=== PATIENT | male | born 1950 | race Caucasian/White ===

== ENCOUNTER → 2016-11-25 | Outpatient (CLI) | payer OTHER ==
[~2016-11-25] MED LIST: ALBUAER2; ASPI325T45 PO; ATOR-22 PO; CARV25TA2 PO; CLOB-65 EXT; CLR10; CRG3125 PO; GABA-113 PO; GLC/500 PO; GLC500; GLCSR10; INSU70IN2 SC; LISI-461 PO; NVLG SQ; PRAV20TA PO; VNTHFA/IN INH
--- NOTE | 2016-11-25 14:04 | DIAGNOSTIC IMAGING REPORT ---
L-SPINE MIN 4 VIEWS ROUTINE CLINICAL HISTORY: Low back pain COMPARISON STUDY: No previous studies for comparison. FINDINGS: There are surgical clips within the right upper quadrant consistent with a prior cholecystectomy. There is a mild amount stool in the right colon. There are no acute fractures are subluxations. There are mild to moderate multilevel degenerative changes. No destructive lesions are visualized. IMPRESSION: Mild to moderate degenerative change. No fractures, subluxations, or destructive lesions are visualized. Electronically signed by: Haresh Knox M.D. 11/25/2016 2:03 PM Dictated Date/Time: 11/25/2016 2:02 PM
== END | disposition home or self-care (01) ==
LOC: C.RADPV 13:34
PROVIDERS: ATTEND Family Medicine
DX: R30.0 Dysuria (principal); M47.816 Spondylosis without myelopathy or radiculopathy, lumbar region

== ENCOUNTER → 2017-03-06 | Outpatient (CLI) | payer OTHER ==
[2017-03-06 12:44] LABS: ESTIMATED AVERAGE GLUCOSE 163 mg/dl; HA1C FLAG Normal (Normal)
[2017-03-06 12:55] LABS: BLOOD UREA NITROGEN 16 mg/dl (7-18); BUN/CREATININE RATIO 18.2 (10-20); CALCIUM 8.9 mg/dl (8.5-10.1); CARBON DIOXIDE 25 mmol/L (21-32); CHLORIDE 107 mmol/L (98-107); CHOLESTEROL 91 mg/dl (0-200); CHOLESTEROL/HDL RATIO 2.7; CREATININE 0.86 mg/dl (0.60-1.40); GLUCOSE 158 mg/dl (70-99); HDL CHOLESTEROL 34 mg/dl; LDL CHOLESTEROL CALCULATED 41 mg/dl; POTASSIUM 4.4 mmol/L (3.5-5.1); SODIUM 140 mmol/L (136-145); TRIGLYCERIDES 78 mg/dl (0-150); VERY LOW DENSITY LIPOPROT CALC 16 mg/dl
== END | disposition home or self-care (01) ==
LOC: C.LABPVFM 08:56
PROVIDERS: ATTEND Nurse Practitioner
DX: E11.65 Type 2 diabetes mellitus with hyperglycemia (principal); I10 Essential (primary) hypertension; E78.00 Pure hypercholesterolemia, unspecified

== ENCOUNTER 2017-04-09 11:58 | Emergency (ER) | payer OTHER ==
[~2017-04-09] VITALS: Ht 185.4 cm; Wt 119.4 kg
[~2017-04-09 11:58] MED LIST changes: -ASPI325T45 PO; -ATOR-22 PO; -CARV25TA2 PO; -GABA-113 PO; -GLC/500 PO; -INSU70IN2 SC; -NVLG SQ; -VNTHFA/IN INH
[2017-04-09 12:11] VITALS: TEMP 37; Ht 185.4 cm; Wt 119.4 kg
[2017-04-09] MEDS ORDERED: NVLG SQ (12:40)
[2017-04-09] MEDS ORDERED: ATOR-22 PO (12:40)
[2017-04-09] MEDS ORDERED: ASPI325T45 PO (12:40)
[2017-04-09] MEDS ORDERED: LISI-461 PO (12:40)
[2017-04-09] MEDS ORDERED: INSU70IN2 SC (12:40)
[2017-04-09] MEDS ORDERED: LIDOCAINE/EPINEPHRINE 1% 20 ML VIAL INFIL ONE (13:00)
--- NOTE | 2017-04-09 13:28 | DIAGNOSTIC IMAGING REPORT ---
HEAD WITHOUT CONTRAST (CT) CT DOSE: HISTORY: Trauma fall, head/neck injury TECHNIQUE: Multiaxial CT images of the head were performed without the use of intravenous contrast. A dose lowering technique was utilized adhering to the principles of ALARA. Comparison: None. Findings: The paranasal sinuses and mastoid air cells are clear. The calvarium and skull base are intact. The ventricles and sulci are within normal limits. There is no mass, hematoma, midline shift, or acute infarct. Mild extracranial right prefrontal soft tissue edema. Impression: No acute intracranial abnormality. Mild right prefrontal extracranial soft tissue edema The above report was generated using voice recognition software. It may contain grammatical, syntax or spelling errors. Electronically signed by: Sylvain Spence M.D. 04/09/2017 1:27 PM Dictated Date/Time: 04/09/2017 1:25 PM
--- NOTE | 2017-04-09 13:35 | DIAGNOSTIC IMAGING REPORT ---
CERVICAL SPINE CT CT DOSE: 1266.48 mGy.cm HISTORY: fall, head/neck injury TECHNIQUE: Multiaxial CT images of the cervical spine were performed and reformatted in the sagittal and coronal plane without the use of contrast. A dose lowering technique was utilized adhering to the principles of ALARA. COMPARISON: None. FINDINGS: No fractures. No subluxation. Prevertebral soft tissues and the C1-C2 interval are intact. No pneumothorax. Mild to moderate disc space narrowing at C5-C6 and C6-C7 with small endplate osteophytes. Left-sided pacemaker wires are noted. IMPRESSION: No fractures within the cervical spine. [id number] degenerative changes. Electronically signed by: Dereck Schafer M.D. 04/09/2017 1:34 PM Dictated Date/Time: 04/09/2017 1:28 PM
[2017-04-09] MEDS ORDERED: VNTHFA/IN INH (13:48)
[2017-04-09] MEDS ORDERED: CARV25TA2 PO (13:49)
[2017-04-09] MEDS ORDERED: GLC/500 PO (13:50)
[2017-04-09] MEDS ORDERED: DIPHTHERIA/TETANUS/PERTUSSIS 0.5 ML SYR/VIAL IM. ONE (14:00)
--- NOTE | 2017-04-09 14:40 | DIAGNOSTIC IMAGING REPORT ---
RIGHT SHOULDER MIN 2 VIEWS ROUTINE CLINICAL HISTORY: right shoulder pain, injury Right trauma. Pain. COMPARISON: None. Discussion: Deformity of the right acromion. Margins are sclerotic, however, with this possibly chronic although not identified on this study 2008. Moderate degenerative changes of the glenohumeral joint. IMPRESSION: Deformity of the acromion felt to be secondary to old trauma. Moderate degenerative change. No acute process. The above report was generated using voice recognition software. It may contain grammatical, syntax or spelling errors. Electronically signed by: Sylvain Spence M.D. 04/09/2017 2:38 PM Dictated Date/Time: 04/09/2017 2:34 PM
--- NOTE | 2017-04-09 14:42 | DIAGNOSTIC IMAGING REPORT ---
PA CHEST WITH RIGHT-SIDED RIB SERIES CLINICAL HISTORY: Fall with right-sided chest wall pain. FINDINGS: A PA chest radiograph with 6 additional views may right-sided rib series is compared to study dated 10/29/2008. A 3-lead cardiac pacemaker partially obscures the left mid chest. The patient is status post midline sternotomy. The heart is enlarged and there is atherosclerotic calcification of the thoracic aorta. The pulmonary vasculature is noncongested. The lungs and pleural spaces are clear. No pneumothorax is seen. The skeletal structures are osteopenic. A nondistracted right anterior seventh rib fracture is suspected. No additional right-sided rib fractures are clearly seen on the rib series. The remainder of the bony thorax is grossly intact. Cholecystectomy clips are seen in the right upper quadrant. IMPRESSION: 1. Cardiomegaly and cardiac pacemaker. There is no radiographic evidence of congestive failure. 2. No airspace consolidation, pleural effusion, or pneumothorax is seen. 3. Suspect a nondistracted right anterior 7th rib fracture. Correlate for point tenderness at this site. Electronically signed by: Brendan Foy M.D. 04/09/2017 2:41 PM Dictated Date/Time: 04/09/2017 2:35 PM
[2017-04-09 14:47] VITALS: BP 145/60
--- NOTE | 2017-04-09 15:26 | EMERGENCY ROOM VISIT NOTE ---
History First contact with patient: 12:27 Chief Complaint: HEAD INJURY (MINOR) Stated Complaint: HEAD INJURY-WORK RELATED INJURY History of Present Illness The patient is a 66 year old male who presents to the Emergency Room with complaints of a fall which occurred at work prior to arrival. The patient states that he tripped over an air hose coming down a ladder, falling down approximately 5 steps. He states that he landed onto his head. He reports pain in his head and neck. He has a laceration to the right eyebrow. He also reports mild pain in the right shoulder and ribs. He states that he suffered some injuries to the knees, but there is minimal pain and he is able to walk without difficulty. He rates his overall discomfort a 7/10. He does not believe he lost consciousness, but states that he "saw stars." He denies any nausea, vomiting, blurred vision, slurred speech, numbness or weakness. He takes aspirin daily but no other blood thinners. He denies any abdominal or chest pain. Review of Systems A complete 10 point review of systems was reviewed with the patient with pertinent positives and negatives as per history of present illness. All else were negative. Social History Smoking Status: Never Smoker Current/Historical Medications Scheduled Aspirin (Aspirin), 975 MG PO BID Atorvastatin (Lipitor), 20 MG PO DAILY Carvedilol (Coreg), 25 MG PO BID Insulin Isophan/Regular (Novolin 70/30), 1 DOSE SC AMPM Lisinopril (Zestril), 10 MG PO DAILY Metformin Hcl (Glucophage), 500 MG PO BID Scheduled PRN Albuterol Hfa (Ventolin Hfa), 1-2 PUFFS INH Q4H PRN for SOB/Wheezing Insulin Aspart (Novolog), 1 DOSE SQ UD PRN for SLIDING SCALE Physical Exam Vital Signs Date Time Temp Pulse Resp B/P (MAP) Pulse Ox O2 Delivery O2 Flow Rate FiO2 04/09/17 15:33 74 18 96 04/09/17 14:47 75 16 145/60 97 Room Air 04/09/17 12:16 18 95 04/09/17 12:11 37.0 71 18 142/72 95 Room Air Physical Exam VITALS: Vitals are noted on the nurse's note and reviewed by myself. Vital signs stable. GENERAL: This is a 66-year-old male, in no acute distress, nondiaphoretic, well- developed well-nourished. SKIN: There is a 2 cm laceration to the right brow with no active bleeding. This gapes with traction. No foreign bodies seen in the base of the wound. There is a 2.5 cm laceration to the anterior aspect of the right knee. This gapes apart with traction. No foreign bodies, blood vessels or bone seen in the base of the wound. No active bleeding. HEAD: There is ecchymosis and hematoma to the right forehead. Otherwise, normocephalic atraumatic. EARS: External auditory canals clear, tympanic membranes pearly disla without erythema or effusion bilaterally. No hemotympanum. EYES: Pupils equal round and reactive to light and accommodation. Conjunctivae without injection, sclerae without icterus. Extraocular movements intact. NOSE: No deformity, no bleeding from the naris. MOUTH: Mucous membranes moist. No loose or chipped teeth. NECK: Supple without nuchal rigidity. There is mild tenderness to palpation over the posterior cervical spine. HEART: Regular rate and rhythm without murmurs gallops or rubs. LUNGS: Clear to auscultation bilaterally without wheezes, rales or rhonchi. MUSCULOSKELETAL: There are mild tenderness to palpation of the anterior right shoulder. There is tenderness to palpation of the right lateral ribs. NEURO: Patient was alert and oriented to person place and time. Normal sensation to light and sharp touch. Deep tendon reflexes 2+ throughout. No focal neurological deficits. Medical Decision & Procedures ER Provider Diagnostic Interpretation: HEAD WITHOUT CONTRAST (CT) Impression: No acute intracranial abnormality. Mild right prefrontal extracranial soft tissue edema CERVICAL SPINE CT IMPRESSION: No fractures within the cervical spine. [id number] degenerative changes. RIGHT SHOULDER MIN 2 VIEWS ROUTINE IMPRESSION: Deformity of the acromion felt to be secondary to old trauma. Moderate degenerative change. No acute process. PA CHEST WITH RIGHT-SIDED RIB SERIES IMPRESSION: 1. Cardiomegaly and cardiac pacemaker. There is no radiographic evidence of congestive failure. 2. No airspace consolidation, pleural effusion, or pneumothorax is seen. 3. Suspect a nondistracted right anterior 7th rib fracture. Correlate for point tenderness at this site. Medications Administered Medications (Trade) Dose Ordered Sig/Gaby Route Start Time Stop Time Status Last Admin Dose Admin Diphtheria/ Pertussis/Tetanus Vacc (Adacel Inj) 0.5 ml ONCE ONCE IM. 04/09/17 14:00 04/09/17 14:01 DC 04/09/17 14:07 0.5 ML Procedure Verbal consent was obtained to perform the procedures. FACE LACERATION: Using sterile technique the wound was cleaned with Betadine. The area was sterilely draped. 3 ml of 1% buffered lidocaine with epinephrine was used to anesthetize the right eyebrow laceration. Once the patient was anesthetized, the wound was copiously irrigated under pressure with sterile saline. The wound was explored. The laceration was repaired using 4 simple interrupted 6-0 nylon sutures with the wound edges being well approximated. The patient tolerated the procedure well. Hemostasis was achieved. The area was cleaned with sterile saline and dressed with bacitracin ointment and bandage. KNEE LACERATION: Using sterile technique the wound was cleaned with Betadine. The area was sterilely draped. 5 ml of 1% buffered lidocaine with epinephrine was used to anesthetize the knee laceration. Once the patient was anesthetized , the wound was copiously irrigated under pressure with sterile saline. The wound was explored and there were no deep structures injured such as tendons, bone, or significant blood vessels. The laceration was repaired using for simple interrupted 4-0 nylon sutures with the wound edges being well approximated. The patient tolerated the procedure well. Hemostasis was achieved. The area was cleaned with sterile saline and dressed with bacitracin ointment and bandage. Medical Decision Differential diagnosis includes fracture, contusion, sprain, dislocation, among others. The patient was evaluated as above. Multiple imaging studies were obtained and read by radiology as above. The patient did have a possible right rib fracture and was given an incentive spirometer. Conservative measures were discussed. Imaging was otherwise negative. Laceration repair was performed as noted in the procedure section. Suture care instructions were discussed with the patient. He was instructed to follow-up with his primary care provider for further evaluation. He will be off work until all of the sutures are removed. The patient verbalized understanding of my assessment and treatment plan and was discharged home in good condition. The patient was independently evaluated by Dr. Tesfaye, ED attending physician, who agreed with my assessment and treatment plan. Head Trauma GCS Score: 15 Medication Reconcilliation Current Medication List: was personally reviewed by me Blood Pressure Screening Patient's blood pressure: Elevated blood pressure Blood pressure disposition: Elevated BP felt to be situational Impression Primary Impression: Closed head injury Additional Impressions: Right rib fracture Facial laceration Laceration of right knee Departure Information Dispostion Home / Self-Care Condition GOOD Referrals Zara Rodriguez C.R.N.P (PCP) Patient Instructions My [facility] Additional Instructions For pain control, you can use the following unnc-hac-cixthua medicines (if >12 yo): - Regular strength (325mg/tab) Tylenol (acetaminophen) 2 tabs every 4-6 hours as needed. Do not exceed 12 tablets in a 24 hour period. Avoid taking more than 4 grams (4000 mg) of Tylenol per day. This includes any other sources of acetaminophen you may take on a regular basis. - Regular strength (200 mg/tab) Advil (ibuprofen) 1-2 tabs every 4-6 hours as needed. Do not exceed a dose of 3200 mg per day. Use the incentive spirometer several times daily to ensure that you are taking full, deep breaths. You have received 4 sutures on your right eyebrow and 4 sutures on your right knee. These sutures are NOT dissolvable. The facial sutures will need to be removed in 6-7 days and the sutures of the knee will need to be removed in 12- 14 days. You can return to the Emergency Department or contact your Primary Care Provider to have the sutures removed. Proper wound care is essential for adequate wound healing and infection prevention. You can shower and clean the wound with soap and water. Do not scour over the wound, pat dry with a towel. Do not submerse the wound (i.e. bathe or dish wash) until the sutures have been removed. You can use an antibiotic ointment with a dressing over the wound for the next 3-4 days. After this time you may leave the wound dry and open to the air. If crust develops over the wound you can use a Q-tip to apply a 1:1 peroxide:water solution to clean the wound. Look for signs of infection of the wound including: increased pain, swelling, foul discharge, streaking, or increased temperature. If any of these are noticed you should return to the Emergency Department for further assessment and treatment. As with any laceration you may have received nerve damage to the surrounding tissues. This damage may or may not be permanent. You should keep the area covered with sunscreen for the first 6 months to 1 year when at risk for exposure to help minimize scarring. You can also use scar reducing creams or Vitamin E oil to help minimize scarring. Return to the emergency department if your symptoms worsen despite treatment course outlined above. Problem Qualifiers Primary Impression: Closed head injury Encounter type: initial encounter Qualified Codes: S09.90XA - Unspecified injury of head, initial encounter
[2017-04-09 15:33] VITALS: PULSE 74; O2SAT 96
--- NOTE | 2017-04-09 19:44 | EMERGENCY ROOM VISIT NOTE ---
ED Visit Note First contact with patient: 12:27 A/P: Fall with +HS. CT head negative. eye brown and knee lac - repair by PA. ND rib fx - IS. I reviewed the patient's past medical history, medications, and visit nursing notes. I discussed the case with the physician boilermaker's assistant and agree with the findings and plan as documented in the physician assistants note.
[2017-06-01] MEDS ORDERED: GABA-113 PO (11:15)
== END 2017-04-09 15:34 | disposition home or self-care (01) ==
LOC: C.EDD 13:15
DX: S01.81XA Laceration without foreign body of other part of head, initial encounter (principal); S81.011A Laceration without foreign body, right knee, initial encounter; S22.31XA Fracture of one rib, right side, initial encounter for closed fracture; W11.XXXA Fall on and from ladder, initial encounter; Y92.89 Other specified places as the place of occurrence of the external cause; Y99.0 Civilian activity done for income or pay; Z79.82 Long term (current) use of aspirin; Z79.899 Other long term (current) drug therapy; Z79.4 Long term (current) use of insulin

== ENCOUNTER → 2017-04-14 | Outpatient (CLI) | payer OTHER ==
[~2017-04-14] MED LIST changes: -ALBUAER2; +ASPI325T45 PO; +ATOR-22 PO; +CARV25TA2 PO; -CLOB-65 EXT; -CLR10; -CRG3125 PO; +GABA-113 PO; +GLC/500 PO; -GLC500; -GLCSR10; +INSU70IN2 SC; +NVLG SQ; -PRAV20TA PO; +VNTHFA/IN INH
--- NOTE | 2017-04-14 11:37 | DIAGNOSTIC IMAGING REPORT ---
L-SPINE MIN 4 VIEWS ROUTINE CLINICAL HISTORY: 66 years-old Male presenting with fall down flight of stairs, right leg pain, back pain. TECHNIQUE: Frontal, bilateral oblique, lateral views of the lumbar spine and coned in lateral view of the lumbosacral junction were obtained. COMPARISON: 11/25/2016. FINDINGS: Radiograph mildly degraded due to suboptimal positioning of lateral and oblique views.Normal lumbar lordosis. Vertebral body heights and intervertebral disc spaces essentially preserved. Mild multilevel degenerative changes. No significant osseous neural foraminal narrowing. No radiographic evidence of acute fracture or subluxation allowing for suboptimal positioning. Moderate stool burden in the right colon. Nonobstructive bowel gas pattern. No gross pneumoperitoneum. Surgical clip projects over the pelvis. Cholecystectomy clips noted. Atherosclerosis. IMPRESSION: No radiographic evidence of acute osseous injury. Mild multilevel degenerative changes without evidence of osseous neural foraminal narrowing. Electronically signed by: Agustín Wilkins M.D. 04/14/2017 11:35 AM Dictated Date/Time: 04/14/2017 11:33 AM
--- NOTE | 2017-04-14 11:38 | DIAGNOSTIC IMAGING REPORT ---
RIGHT KNEE 1 OR 2 VIEWS ROUTINE, RIGHT TIBIA/FIBULA 2 VIEWS ROUTINE HISTORY: 66 years-old Male RIGHT KNEE AND RIGHT TIB/FIB PAIN BACK PAIN Right COMPARISON: None available TECHNIQUE: 2 views of the right knee and 2 views of the right tibia and fibula. FINDINGS: Knee: Mild tricompartmental osteoarthritis is noted, most pronounced within the patellofemoral joint. There is spurring of the superior pole patella. Small joint effusion is noted. No loose body, acute fracture or dislocation. Tibia/fibula: 8 mm pretibial nonspecific soft tissue calcification is noted. There is mild pretibial soft tissue swelling noted along the proximal tibial shaft. There is no acute fracture or dislocation. There is mild marginal spurring about the medial and lateral malleoli. IMPRESSION: 1. No acute fracture or dislocation of the right knee, tibia or fibula. 2. Small knee joint effusion present with associated patellofemoral osteoarthritis. 3. Mild pretibial soft tissue swelling. The above report was generated using voice recognition software. It may contain grammatical, syntax or spelling errors. Electronically signed by: Chele Gaitan M.D. 04/14/2017 11:36 AM Dictated Date/Time: 04/14/2017 11:34 AM
--- NOTE | 2017-04-14 11:40 | DIAGNOSTIC IMAGING REPORT ---
RIGHT HIP 2 VIEWS CLINICAL HISTORY: Fall with right leg pain. FINDINGS: AP and frog-leg views of the right hip are obtained. No prior studies are available for comparison at the time of dictation. Skeletal structures are well mineralized. No fracture is seen in the right hip or the visualized hemipelvis. The joint space of the hip is maintained. Enthesophytes arise from the greater trochanter of the right femur. Mild sclerotic change is noted in the right sacroiliac joint. The overlying soft tissues are within normal limits. Phleboliths are seen in the pelvis. IMPRESSION: No acute bony abnormality is seen in the right hip. Electronically signed by: Brendan oFy M.D. 04/14/2017 11:39 AM Dictated Date/Time: 04/14/2017 11:37 AM
== END | disposition home or self-care (01) ==
LOC: C.RAD1850 10:49
PROVIDERS: ATTEND Nurse Practitioner Family
DX: T14.90 Injury, unspecified (principal); W19.XXXA Unspecified fall, initial encounter; Y99.0 Civilian activity done for income or pay; M25.461 Effusion, right knee; M17.11 Unilateral primary osteoarthritis, right knee

== ENCOUNTER → 2017-04-15 | Outpatient (CLI) | payer OTHER ==
--- NOTE | 2017-04-15 11:42 | DIAGNOSTIC IMAGING REPORT ---
LUMBAR SPINE WITHOUT CLINICAL HISTORY: 66 years-old Male presenting with PAIN FROM WORK RELATED FALL. TECHNIQUE: Multidetector CT of the lumbar spine was performed without the use of intravenous contrast. IV contrast: None. A dose lowering technique was used consistent with the principles of ALARA (as low as reasonably achievable). COMPARISON: None. CT DOSE (mGy.cm): The estimated cumulative dose is 2369.64 mGy.cm. 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 Cholecystectomy clips. Normal lumbar lordosis. Vertebral bodies maintain normal height and alignment. Minimal intervertebral disc height loss at L5-S1. Vacuum disc phenomenon noted at multiple levels. Multilevel degenerative changes seen to varying degrees at all the lumbar levels further detailed below: L1-2: Anterior osteophytosis and minimal disc bulge. No significant neural foraminal or spinal canal narrowing. L2-3: Disc bulge results in mild bilateral neural foraminal narrowing. L3-4: Disc bulge and facet arthropathy result in moderate bilateral neural foraminal narrowing. There is also effacement of the ventral thecal sac. L4-5: Disc bulge and facet arthropathy result in moderate to severe right and mild left neural foraminal narrowing. Effacement of the ventral thecal sac greater along the right aspect. L5-S1: Disc bulge and right facet arthropathy result in severe right and moderate left neural foraminal narrowing. Paraspinal soft tissues remarkable for atherosclerosis of the normal caliber abdominal aorta. IMPRESSION: Multilevel degenerative changes most severe at L4-5 and L5-S1 with varying degrees of neural foraminal narrowing as above. Multilevel spinal canal narrowing, which could be better characterized by CT myelogram. Electronically signed by: Agustín Wilkins M.D. 04/15/2017 11:41 AM Dictated Date/Time: 04/15/2017 11:35 AM
--- NOTE | 2017-04-15 11:50 | DIAGNOSTIC IMAGING REPORT ---
RIGHT SHOULDER CT CT DOSE: HISTORY: Right shoulder pain PAIN FROM WORK RELATED FALL Right TECHNIQUE: Multiaxial CT images of the right shoulder were performed and reformatted in the sagittal and coronal plane without the use of contrast. A dose lowering technique was utilized adhering to the principles of ALARA. COMPARISON: Right shoulder 04/09/2017. FINDINGS: No acute fracture or dislocation within the right shoulder. 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 This corresponds to the abnormality seen on the prior radiograph. The right clavicle is intact. Mild to moderate degenerative changes within the acromioclavicular and glenohumeral joints. Pacemaker wires are noted. Probable rotator cuff injury/tear given the mild superior subluxation of the humeral head resulting in narrowing of the subacromial space. There is also focal thickening and fluid surrounding the long head of the biceps tendon at the level of the humeral neck. This could represent an age-indeterminate tear or tendinopathy/tenosynovitis. IMPRESSION: 1. No acute fracture or dislocation within the right shoulder. 2. 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 This corresponds to the abnormality seen on the prior radiograph. 3. Mild to moderate osteoarthritis within the right shoulder. 4. Chronic rotator cuff injury. 5. Thickening and fluid surrounding the long head of the biceps tendon at the level of the humeral neck. This could represent an age-indeterminate tear or tendinopathy/tenosynovitis. Electronically signed by: Dereck Schafer M.D. 04/15/2017 11:48 AM Dictated Date/Time: 04/15/2017 11:33 AM
== END | disposition home or self-care (01) ==
LOC: C.CTS 11:02
PROVIDERS: ATTEND Nurse Practitioner Family
DX: M25.511 Pain in right shoulder (principal); M54.5 Low back pain; W19.XXXA Unspecified fall, initial encounter; Y99.0 Civilian activity done for income or pay; M51.36 Other intervertebral disc degeneration, lumbar region; M51.37 Other intervertebral disc degeneration, lumbosacral region; M48.06 Spinal stenosis, lumbar region; M94.8X1 Other specified disorders of cartilage, shoulder; M19.011 Primary osteoarthritis, right shoulder; S46.001A Unspecified injury of muscle(s) and tendon(s) of the rotator cuff of right shoulder, initial encounter; R93.7 Abnormal findings on diagnostic imaging of other parts of musculoskeletal system

== ENCOUNTER → 2017-05-21 | Outpatient (CLI) | payer OTHER | END | disposition home or self-care (01) | LOC: C.LABPVFM 17:49 | PROVIDERS: ATTEND Nurse Practitioner Family | DX: S90.859A Superficial foreign body, unspecified foot, initial encounter (principal); X58.XXXA Exposure to other specified factors, initial encounter ==

== ENCOUNTER → 2017-08-07 | Outpatient (CLI) | payer OTHER ==
[~2017-08-07] VITALS: Ht 185.4 cm; Wt 126.1 kg
[~2017-08-07] MED LIST changes: +ASPCH81X PO; +CINN500C13 PO; +CLRD/12 PO; +HYDR-4383 PO; +MULT-884 PO; -NVLG SQ; +NVLGI/PEN SQ
[2017-08-07 10:11] VITALS: Ht 185.4 cm; Wt 126.1 kg
--- NOTE | 2017-08-07 11:01 | PAT Medication Instructions ---
Service Date Aug 07, 2017. Current Home Medication List Albuterol Hfa (Ventolin Hfa), 1-2 PUFFS INH Q4H PRN for SOB/Wheezing Aspirin (Aspirin), 650 MG PO BID Atorvastatin (Lipitor), 20 MG PO QPM Carvedilol (Coreg), 25 MG PO BID Cinnamon (Cinnamon Extract), 1 TAB PO QAM Desloratadine/Pseudoephedrine (Clarinex-D 12 Hour), 1 TAB PO QPM Gabapentin (Neurontin), 300 MG PO TID Insulin Aspart (Novolog Flexpen), 1 SYR SQ TIDM Insulin Isophan/Regular (Novolin 70/30), 1 DOSE SC AMPM Lisinopril (Zestril), 10 MG PO QAM Metformin Hcl (Glucophage), 500 MG PO BID Multiple Vitamin (Multi Vitamin Daily), 1 TAB PO QAM Medication Instructions For Your Scheduled Surgery - Contact your prescriber and your surgeon for instructions: Aspirin (Aspirin), 650 MG PO BID Hold the following medications 2 weeks prior to surgery: Cinnamon (Cinnamon Extract), 1 TAB PO QAM - Hold the following medications 48 hours prior to surgery: Metformin Hcl (Glucophage), 500 MG PO BID - Hold the following medications the morning of surgery: Lisinopril (Zestril), 10 MG PO QAM Multiple Vitamin (Multi Vitamin Daily), 1 TAB PO QAM Insulin Aspart (Novolog Flexpen), 1 SYR SQ TIDM - Take the following medications the morning of surgery with a sip of water: Albuterol Hfa (Ventolin Hfa), 1-2 PUFFS INH Q4H PRN for SOB/Wheezing (if needed) Gabapentin (Neurontin), 300 MG PO TID Carvedilol (Coreg), 25 MG PO BID - Take the following medications as scheduled the night before surgery: Albuterol Hfa (Ventolin Hfa), 1-2 PUFFS INH Q4H PRN for SOB/Wheezing (if needed) Gabapentin (Neurontin), 300 MG PO TID Atorvastatin (Lipitor), 20 MG PO QPM Carvedilol (Coreg), 25 MG PO BID Desloratadine/Pseudoephedrine (Clarinex-D 12 Hour), 1 TAB PO QPM Insulin Aspart (Novolog Flexpen), 1 SYR SQ TIDM Insulin Isophan/Regular (Novolin 70/30), 1 DOSE SC AMPM - For Insulin Dependent Diabetic patients: Test blood sugar A.M. of surgery. - If BLOOD SUGAR IS GREATER THAN 150, take half of your regular dose of: Insulin Isophan/Regular (Novolin 70/30), 1 DOSE SC AMPM (TAKE 18 UNITS) - If BLOOD SUGAR IS LESS THAN 150, do not take any: Insulin Isophan/ Regular (Novolin 70/30), 1 DOSE SC AMPM If you have any questions please call us at [phone] or [phone] or [phone]
[2017-08-07 12:19] LABS: BASO % 0.2 %; BASO ABS # 0.01 K/uL (0-0.2); EOS % 2.1 %; EOS ABS # 0.11 K/uL (0-0.5); HEMATOCRIT 37.2 % (42-52); HEMOGLOBIN 12.3 g/dL (14.0-18.0); LYMPH % 28.5 %; LYMPH ABS # 1.48 K/uL (1.2-3.4); MEAN CELL VOLUME 93.2 fL (80-100); MEAN CORPUSCULAR HEMOGLOBIN 30.8 pg (25-34); MEAN CORPUSCULAR HGB CONC 33.1 g/dl (32-36); MEAN PLATELET VOLUME 9.9 fL (7.4-10.4); MONO ABS # 0.57 K/uL (0.11-0.59); NEUT % 58.2 %; NEUT ABS # 3.02 K/uL (1.4-6.5); PLATELET COUNT 206 K/uL (130-400); RED CELL DISTRIBUTION WIDTH CV 12.9 % (11.5-14.5); WHITE BLOOD COUNT 5.19 K/uL (4.8-10.8)
[2017-08-07 13:03] LABS: CALCIUM 8.9 mg/dl (8.5-10.1); CREATININE 0.97 mg/dl (0.60-1.40); POTASSIUM 4.9 mmol/L (3.5-5.1)
== END | disposition home or self-care (01) ==
LOC: C.LAB 08:00 → EDSTATUS 08-25 13:30
PROVIDERS: ATTEND Orthopaedic Surgery
DX: Z01.818 Encounter for other preprocedural examination (principal); S46.011A Strain of muscle(s) and tendon(s) of the rotator cuff of right shoulder, initial encounter; X58.XXXA Exposure to other specified factors, initial encounter

== ENCOUNTER → 2017-08-13 | Outpatient (CLI) | payer OTHER ==
[~2017-08-13] MED LIST changes: -ASPCH81X PO; -HYDR-4383 PO
--- NOTE | 2017-08-13 16:15 | DIAGNOSTIC IMAGING REPORT ---
VENOUS DOPPLER LWR EXT BILA CLINICAL HISTORY: 67 years-old Male presenting with M54.16 Lumbar [id number] Edema of lower [id number]. TECHNIQUE: Real-time grayscale and color and spectral Doppler ultrasound imaging of the veins of the bilateral lower extremities was performed. Compression and augmentation were also utilized. COMPARISON: None. FINDINGS: Right: Common femoral vein: Patent. Greater saphenous vein: Patent. Deep femoral vein: Patent. Femoral vein: Patent. Popliteal vein: Patent. Calf veins: Limited visualization. Left: Common femoral vein: Patent. Greater saphenous vein: Patent. Deep femoral vein: Patent. Femoral vein: Patent. Popliteal vein: Patent. Calf veins: Limited visualization. Other: None. IMPRESSION: No evidence of deep venous thrombosis. Electronically signed by: Agustín Wilkins M.D. 08/13/2017 4:14 PM Dictated Date/Time: 08/13/2017 4:13 PM
== END | disposition home or self-care (01) ==
LOC: C.ULTR 15:31
PROVIDERS: ATTEND Nurse Practitioner
DX: M54.16 Radiculopathy, lumbar region (principal); R60.0 Localized edema

== ENCOUNTER 2017-09-04 08:52 | Day surgery (SDC) | payer OTHER ==
[2017-09-04] VITALS (10 sets, daily range): BP systolic 110–155; BP diastolic 53–69; PULSE 69–80; TEMP 36.7–37.1; O2SAT 95–97; Ht 185.4 cm; Wt 121.5 kg
[~2017-09-04] VITALS: Ht 185.4 cm; Wt 121.5 kg
--- NOTE | 2017-09-04 10:22 | Discharge Instructions ---
Discharge Instructions Procedure Procedure Date: Sep 04, 2017. Reason for visit: Lumbar Spinal Stenosis. Discharge Discharge Date: Sep 04, 2017. Discharge Diagnosis: lumbar spinal stenosis Instructions Activity Recommendations: 1 Day-May resume regular activity, 48 Hours of decreased exertion, 1 Day with no exercise/sex/sports, 1 Day with no driving/ machine use Return to School/Work: limitations (light activity x 48 hours) Recommended Home Diet: Resume Previous Diet Provider Instructions: Fluoroscopic guided lumbar puncture was performed at L3-L4 for the purposes of performing a CT myelogram of the lumbar spine. The procedure was well tolerated and without immediate complication. ACTIVITY RECOMMENDATIONS: * Rest today. * Resume regular activity in one day. MEDICATIONS: * May take Tylenol or Ibuprofen as needed for pain. DIET: * Resume previous diet. SPECIAL CARE INSTRUCTIONS: Call your doctor if: * Temperature above 101 degrees F. * Pain not relieved by pain medicine ordered. * Increased drainage or redness from incision. * Notify your doctor with any questions or concerns. Call your doctor or go to the nearest Emergency Department if you experience: * Increased chest pain or shortness of breath. FOLLOW UP VISIT: Follow-up with Referring Physician as scheduled. Allergies Uncoded Allergies: ENVIRONMENTAL (Allergy, Unknown, hayfever, 08/07/17) Hamzah Herdeiay Recommendations: Call your doctor if: * Temperature above 101 degrees * Pain not relieved by pain medicine ordered * There is increased drainage or redness from any incision * You have any unanswered questions or concerns. Your Doctors Instructions noted above were prepared by provider Brendan Foy. Patient Signature Section: Patient Instructions Signature Page [facility] Patient (or Guardian) Signature/Date: I have read and understand the instructions given to me by my caregivers. Caregiver/RN/Doctor Signature/Date: The above-named patient and/or guardian has received patient instructions on this date. + Original Patient Signature Page (only) stays with chart. Please make copy for patient.
[2017-09-04] MEDS ORDERED: ACETAMINOPHEN 500 MG TAB PO PRN (10:30)
--- NOTE | 2017-09-04 10:37 | DIAGNOSTIC IMAGING REPORT ---
FLUOROSCOPIC GUIDED LUMBAR PUNCTURE CLINICAL HISTORY: Lumbar puncture for CT myelogram of the lumbar spine. PROCEDURE: The risks, benefits, and alternatives to the procedure is discussed with the patient who voiced understanding. Written informed consent was obtained. The patient was placed prone on the fluoroscopy table. The lower back was prepped and draped in the usual sterile fashion. 1% lidocaine was used for local anesthesia. A 20-gauge spinal needle was inserted into the L3-L4 interlaminar space, and intrathecal positioning was confirmed by return of cerebrospinal fluid into the hub of the needle. Approximately 15 cc of Isovue-[id number] was then injected into the thecal sac under fluoroscopic guidance. The patient tolerated the procedure well and there were no immediate complications. The patient was then transported to CT for CT myelography prior to observation in the medical treatment unit before discharge. Fluoroscopy time: 0.4 minutes. IMPRESSION: Fluoroscopic guided lumbar puncture for CT myelogram of the lumbar spine as above. There were no immediate complications. Electronically signed by: Brendan Foy M.D. 09/04/2017 10:36 AM Dictated Date/Time: 09/04/2017 10:34 AM
--- NOTE | 2017-09-04 11:48 | DIAGNOSTIC IMAGING REPORT ---
CT MYELOGRAM OF THE LUMBAR SPINE CLINICAL HISTORY: Lumbar spinal stenosis. COMPARISON STUDY: CT scan of the lumbar spine dated 04/15/2017. TECHNIQUE: Following the intrathecal administration of iodinated contrast, CT myelogram of the lumbar spine is performed from the lower thoracic spine to the sacrum. Images are reviewed in the axial, sagittal, and coronal planes. A dose lowering technique was utilized adhering to the principles of ALARA. CT DOSE: 1492.09 mGy.cm FINDINGS: Lumbar spine: The skeletal structures appear osteopenic. There is no evidence of fracture or malalignment. Vertebral body height and alignment are maintained throughout the lumbar spine. There is no evidence of spondylolysis. The transverse and spinous processes are intact. Small anterior osteophytes are seen throughout. Intervertebral discs: Mild degenerative disc space narrowing with vacuum phenomenon is seen from L3 to L4 through L5-S1. Spinal cord: The visualized spinal cord is normal in morphology. The conus medullaris terminates at the T12-L1 interspace. The nerve roots of the cauda equina are normal in morphology. T12-L1: Unremarkable. L1-L2: Unremarkable. L2-L3: Unremarkable. L3-L4: There is a small posterior disc osteophyte complex eccentric to the left. There is no significant acquired compromise of the central canal. The minimum AP diameter measures 10 mm. The disc bulge causes left-sided subarticular stenosis, and may impinge on the exiting left L3 and the transiting left-sided nerve roots at this level. The neural foramina appear patent. L4-L5: There is a posterior disc osteophyte complex at this level. In conjunction with hypertrophy of the ligamentum flavum this causes minimal narrowing of the central canal. The minimum AP diameter measures 9.5 mm. There is bilateral subarticular stenosis. This may abut the exiting bilateral L4 and the transiting bilateral L5 nerve roots. The neural foramina are patent. L5-S1: Epidural lipomatosis is seen at this level with a slitlike central canal. A posterior disc bulge at this level does not impinge on the central canal. There is mild bilateral subarticular stenosis, right greater than left. Soft tissues: The paraspinous soft tissues are within normal limits. There is moderate to advanced atherosclerotic calcification of the abdominal aorta. The aorta is normal in caliber. Sacrum: The visualized sacrum and bony pelvis appear intact. Degenerative change is seen in the sacroiliac joints. IMPRESSION: 1. No acute bony abnormality is seen involving the lumbar spine. 2. There is no significant acquired compromise of the central canal. 3. Epidural lipomatosis is seen at L5-S1 and the central canal is slitlike at this level. 4. Lumbosacral spondylosis as above, greatest at L3-L4 and L4-L5 as above. See discussion for detailed level by level analysis. Dictated: 09/04/2017 10:42 AM Transcribed: 09/04/2017 11:48 AM DAHLIA_Amina Electronically signed by: Brendan Foy M.D. 09/04/2017 11:50 AM Dictated Date/Time: 09/04/2017 10:42 AM
== END 2017-09-04 14:20 | disposition home or self-care (01) ==
LOC: C.ACU 08:52
PROVIDERS: ATTEND Orthopaedic Surgery Orthopaedic Surgery of the Spine
DX: M48.061 Spinal stenosis, lumbar region without neurogenic claudication (principal)

== ENCOUNTER → 2017-09-07 | Outpatient (CLI) | payer OTHER ==
[~2017-09-07] MED LIST changes: -GABA-113 PO
[2017-09-07 13:56] LABS: HEMOGLOBIN A1C 7.3 % (4.5-5.6)
== END | disposition home or self-care (01) ==
LOC: C.LABPVFM 10:11
PROVIDERS: ATTEND Nurse Practitioner
DX: E11.9 Type 2 diabetes mellitus without complications (principal)

== ENCOUNTER → 2017-09-17 | Outpatient (CLI) | payer OTHER ==
[~2017-09-17] MED LIST changes: -CINN500C13 PO
== END | disposition home or self-care (01) ==
LOC: C.LABPVFM 15:06
PROVIDERS: ATTEND Nurse Practitioner
DX: M10.9 Gout, unspecified (principal)

== ENCOUNTER 2017-10-01 05:27 | Observation (INO) | payer OTHER ==
[2017-09-14 09:36] VITALS: Ht 185.4 cm; Wt 125.3 kg
--- NOTE | 2017-09-14 10:21 | PAT Medication Instructions ---
Service Date Sep 14, 2017. Current Home Medication List Albuterol Hfa (Ventolin Hfa), 1-2 PUFFS INH Q4H PRN for SOB/Wheezing Aspirin (Aspirin), 650 MG PO BID Atorvastatin (Lipitor), 20 MG PO QPM Carvedilol (Coreg), 25 MG PO BID Desloratadine/Pseudoephedrine (Clarinex-D 12 Hour), 1 TAB PO QPM Insulin Aspart (Novolog Flexpen), 1 SYR SQ TIDM Insulin Isophan/Regular (Novolin 70/30), 1 DOSE SC AMPM Lisinopril (Zestril), 10 MG PO QAM Metformin Hcl (Glucophage), 500 MG PO BID Multiple Vitamin (Multi Vitamin Daily), 1 TAB PO QAM Medication Instructions For Your Scheduled Surgery -Contact your vp construction for instructions for: Aspirin (Aspirin), 650 MG PO BID - Hold the following medications 48 hours prior to surgery: Metformin Hcl (Glucophage), 500 MG PO BID - Hold the following medications the morning of surgery: Multiple Vitamin (Multi Vitamin Daily), 1 TAB PO QAM Lisinopril (Zestril), 10 MG PO QAM Insulin Aspart (Novolog Flexpen), 1 SYR SQ TIDM - Take the following medications the morning of surgery with a sip of water: Carvedilol (Coreg), 25 MG PO BID Albuterol Hfa (Ventolin Hfa), 1-2 PUFFS INH Q4H PRN for SOB/Wheezing (if needed) - Take the following medications as scheduled the night before surgery: Desloratadine/Pseudoephedrine (Clarinex-D 12 Hour), 1 TAB PO QPM Carvedilol (Coreg), 25 MG PO BID Atorvastatin (Lipitor), 20 MG PO QPM Albuterol Hfa (Ventolin Hfa), 1-2 PUFFS INH Q4H PRN for SOB/Wheezing (if needed) Insulin Isophan/Regular (Novolin 70/30), 1 DOSE SC AMPM - For Insulin Dependent Diabetic patients: Test blood sugar A.M. of surgery. - If BLOOD SUGAR IS GREATER THAN 150, take half of your regular dose of: Insulin Isophan/Regular (Novolin 70/30), 1 DOSE SC AMPM (TAKE 18 UNITS) - If BLOOD SUGAR IS LESS THAN 150, do not take any: Insulin Isophan/ Regular (Novolin 70/30), 1 DOSE SC AMPM If you have any questions please call us at [phone] or [phone] or [phone]
[2017-09-14 11:15] LABS: INR 0.9 (0.9-1.1); PTT PATIENT 28.2 SECONDS (21.0-31.0)
--- NOTE | 2017-09-30 18:51 | HISTORY & PHYSICAL EXAMINATION ---
DATE OF ADMISSION: 10/01/2017 CHIEF COMPLAINT: Back pain, lower extremity difficulty, paresthesias and weakness, working diagnosis of spinal stenosis lumbar spine at 2 levels L4-L5, quite severe disc herniation at L4-L5 as well, and stenosis at L5-S1. PAST MEDICAL HISTORY: Positive for obesity, hypertension, diabetes mellitus, asthma, history of heart bypass surgery. No kidney or liver pathology. PAST SURGICAL HISTORY: Include bypass surgery, pacemaker, appendectomy, shoulder replacement, carpal tunnel. ALLERGIES: Negative. MEDICATIONS: Metformin, lisinopril, Zocor, Ecotrin, oxycodone, albuterol, and insulin. SOCIAL HISTORY: Nonsmoker, non-ETOH user. PHYSICAL EXAMINATION: VITAL SIGNS: Blood pressure 140/80, pulse 80, respiratory rate 16, temperature 97.4. HEENT: Essentially normal. Pupils reactive to light and accommodation. Adequate dentition, some false teeth. Ear, nose and throat clear. CARDIAC: Normal S1, S2. No S3. Normal rhythm. LUNGS: Clear to auscultation. No wheezing or rhonchi. ABDOMEN: Soft, nontender, bowel sounds present. EXTREMITIES: Intact. He has weakness on the right hand side, slight limp on the right, 3/5 muscle weakness of the great toe. Weakness of plantarflexion on the right and pain with percussion. ASSESSMENT: Spinal stenosis, lumbar spine. DISPOSITION: Includes laminectomy L4-L5 and L5-S1.
[2017-10-01] VITALS (10 sets, daily range): BP systolic 112–163; BP diastolic 67–83; PULSE 60–105; TEMP 36.3–37; O2SAT 93–99
[~2017-10-01] VITALS: Ht 185.4 cm; Wt 125.3 kg
[~2017-10-01 05:27] MED LIST changes: +CINN500C13 PO; +GABA-113 PO
[2017-10-01] MEDS ORDERED: ASPCH81X PO ×2 (05:53)
[2017-10-01] MEDS ORDERED: NSS 1000ML IV SCH (06:00)
[2017-10-01] MEDS ORDERED: CEFAZOLIN 3000MG IV PUSH 22.5 ML IV SCH (06:00)
[2017-10-01] MEDS ORDERED: LACTATED RINGER'S 1000ML 1,000 ML IV SCH (06:00)
[2017-10-01] MEDS ORDERED: THROMBIN FOR SOLN 20000 UNIT KIT ONE (06:52)
[2017-10-01] MEDS ORDERED: BACITRACIN 50000 UNIT VIAL ONE (06:52)
[2017-10-01] MEDS ORDERED: GELATIN SPONGE SZ 100 ONE (06:52)
[2017-10-01] MEDS ORDERED: VANCOMYCIN HCL 1000MG/20ML VIAL ONE (06:52)
[2017-10-01] MEDS ORDERED: BUPIVACAINE/EPINEPHRINE 0.5% MPF 1:200,000 30 ML VIAL ONE ×2 (06:53→06:57)
[2017-10-01] MEDS ORDERED: EpHEDrine SULFATE INJ 50 MG/ML AMP ONE (07:16)
[2017-10-01] MEDS ORDERED: PHENYLEPHRINE HCL INJ 10 MG/ML VIAL ONE (07:16)
[2017-10-01] MEDS ORDERED: DEXAMETHASONE SOD INJ 4 MG/ML VIAL ONE (07:16)
[2017-10-01] MEDS ORDERED: MIDAZOLAM HCL 1 MG/ML 2ML VIAL ONE (07:16)
[2017-10-01] MEDS ORDERED: PROPOFOL IV EMULSION 10 MG/ML 20 ML VIAL IV ONE (07:16)
[2017-10-01] MEDS ORDERED: NEOSTIGMINE METHYLSULFATE 5 MG/5 ML SYR ONE (07:16)
[2017-10-01] MEDS ORDERED: ONDANSETRON INJ 2 MG/ML 2 ML VIAL ONE (07:16)
[2017-10-01] MEDS ORDERED: GLYCOPYRROLATE INJ 0.2 MG/ML VIAL ONE (07:16)
[2017-10-01] MEDS ORDERED: SUCCINYLCHOLINE CHLORIDE 20 MG/ML 10 ML VIAL IV ONE (07:16)
[2017-10-01] MEDS ORDERED: LIDOCAINE HCL 2% 2 ML VIAL (20MG/ML) ONE (07:16)
[2017-10-01] MEDS ORDERED: FENTANYL CITRATE INJ 50 MCG/1 ML 2 ML VIAL ONE (07:17)
--- NOTE | 2017-10-01 08:14 | History & Physical Bridge Note ---
H&P Re-Evaluation Bridge Note: I have examined the patient, reviewed the History & Physical and in the interval since the performance of the History & Physical I have noted the following changes of clinical significance: No changes noted
[2017-10-01] MEDS ORDERED: HYDROmorphone INJ 2 MG/ML SYR/VIAL ONE (09:09)
[2017-10-01] MEDS ORDERED: NALOXONE HCL 0.4 MG/1 ML VIAL/CARP IV PRN (10:15)
[2017-10-01] MEDS ORDERED: HYDROmorphone INJ 1 MG/ML SYR IV PRN ×3 (10:15→10:30)
[2017-10-01] MEDS ORDERED: ATROPINE SULFATE 0.1 MG/ML 5ML SYR IV PRN (10:15)
[2017-10-01] MEDS ORDERED: LABETALOL HCL IV 5 MG/ML 20ML IV PRN (10:15)
[2017-10-01] MEDS ORDERED: EpHEDrine SULFATE INJ 50 MG/ML AMP IV PRN (10:15)
[2017-10-01] MEDS ORDERED: FLUMAZENIL 0.1 MG/1 ML 10 ML VIAL IV PRN (10:15)
[2017-10-01] MEDS ORDERED: ONDANSETRON INJ 2 MG/ML 2 ML VIAL IV PRN ×2 (10:15→10:30)
[2017-10-01] MEDS ORDERED: PROMETHAZINE HCL INJ 12.5 MG in SODIUM CHLORIDE 0.9% 50ML 50 ML IV PRN ×2 (10:15→10:30)
--- NOTE | 2017-10-01 10:24 | [facility] Post Operative Brief Note ---
Immediate Operative Summary Operative Date Oct 01, 2017. Pre-Operative Diagnosis Lumbar Spinal Stenosis Post-Operative Diagnosis Lumbar Spinal Stenosis Procedure(s) Performed L4-L5, L5-S1 Laminectomy with no apparent complications Surgeon Dr. Arrieta Paring Machine Operator Surgeon(s) Jonn Jacobo PA-C Estimated Blood Loss 100 ml Findings Consistent with Post-Op Diagnosis Specimens none per surgeon Anesthesia Type General Complication(s) none
[2017-10-01] MEDS ORDERED: METOCLOPRAMIDE HCL INJ 5 MG/ML 2 ML VIAL IV PRN (10:30)
[2017-10-01] MEDS ORDERED: CEFAZOLIN IV 1,000 MG in DEXTROSE 5% 50ML 50 ML IV SCH (10:30)
[2017-10-01] MEDS ORDERED: ACETAMINOPHEN 325 MG TAB PO PRN (10:30)
[2017-10-01] MEDS ORDERED: LORAZEPAM 1 MG TAB PO PRN (10:30)
[2017-10-01] MEDS ORDERED: OXYCODONE/ACETAMINOPHEN 5-325 TAB PO PRN ×2 (10:30)
[2017-10-01] MEDS ORDERED: LORAZEPAM INJ 1 MG in SYRINGE 0 ML IV PRN (10:30)
[2017-10-01] MEDS ORDERED: MAGNESIUM HYDROXIDE SUSP 30 ML UDC PO PRN (10:30)
[2017-10-01] MEDS ORDERED: HYDROmorphone INJ 1 MG/ML SYR ONE (10:40)
--- NOTE | 2017-10-01 10:40 | OPERATIVE REPORT ---
DATE OF OPERATION: 10/01/2017 PREOPERATIVE DIAGNOSIS: Severe stenosis lumbar spine L4-L5 and L5-S1. POSTOPERATIVE DIAGNOSIS: Same. PROCEDURES: Include laminectomy L4-L5 and L5-S1, foraminotomy, partial facetectomy L4 to the sacrum plus discectomy L4-L5 right-sided, posterolateral fusion without instrumentation L4-L5 and L5-S1. ANESTHETIC: General. COMPLICATION: Zero. BLOOD LOSS: 100 mL SURGEON: Dr. Arrieta. NUT BLANKER OPERATOR: Jonn Jacobo PA-C. DESCRIPTION OF PROCEDURE: The patient was taken to the operating room, a general intubated anesthetic provided to the patient, placed prone, scrubbed, prepped and draped sterile. We made a skin incision, a fascial incision, put in a deep self-retaining retractor. We decompressed the neural elements with different types of rongeurs. We did good foraminotomies. I was pleased with the canals of the nerve root in the foramen, I think we opened them up perfectly. We also retracted the dura over the L4-L5 interval. I actually did a discectomy. I felt there was a herniated component on this based on radiographic findings and in actuality there was. We completed the foraminotomies and verified our levels with the C-arm. We then irrigated it thoroughly, closed over vancomycin powder and a Hemovac drain. We did bone graft the area to initiate a fusion without instrumentation. Closed fascia to fascia with #1 Vicryl suture, 2-0 in the subcuticular layer, staple gun on the skin. Sterile dressing applied. The patient returned to PACU stable. No apparent complications. I attest to the content of the Intraoperative Record and any orders documented therein. Any exception s are noted below.
--- NOTE | 2017-10-01 10:43 | DIAGNOSTIC IMAGING REPORT ---
SPINE ONE VIEW, ANY LEVEL HISTORY: 67 years-old Male L4-L5, L5-S1 LAMINECTOMY status post laminectomy. Degenerative disc disease COMPARISON: Lumbar spine CT 09/04/2017 TECHNIQUE: Single lateral spot fluoroscopic image of the lumbar spine was obtained utilizing 2.1 seconds of fluoroscopy time FINDINGS: No orthopedic hardware is seen posteriorly adjacent to the L4-L5 and L5-S1 levels where there is endplate spurring and intervertebral disc space narrowing. Alignment appears satisfactory. IMPRESSION: Fluoroscopic assistance as above. Please see operative report for further details. The above report was generated using voice recognition software. It may contain grammatical, syntax or spelling errors. Electronically signed by: Chele Gaitan M.D. 10/01/2017 10:41 AM Dictated Date/Time: 10/01/2017 10:24 AM
--- NOTE | 2017-10-01 11:30 | Anesthesiology Progress Note ---
Anesthesia Post Op Note Date & Time Oct 01, 2017 at 11:29 Vital Signs Pain Intensity: 2 Vital Signs Past 12 Hours Date Time Temp Pulse Resp B/P (MAP) Pulse Ox O2 Delivery O2 Flow Rate FiO2 10/01/17 11:15 36.5 153/72 10/01/17 11:11 163/76 10/01/17 11:10 68 12 98 10/01/17 11:10 68 12 10/01/17 11:06 156/78 10/01/17 11:05 63 14 97 10/01/17 11:05 63 10/01/17 11:01 157/67 10/01/17 11:00 67 16 96 10/01/17 11:00 67 10/01/17 10:56 Nasal Cannula 3 10/01/17 10:56 158/82 10/01/17 10:55 60 7 10/01/17 10:55 60 7 100 10/01/17 10:51 151/78 10/01/17 10:50 60 10 100 10/01/17 10:50 62 10 10/01/17 10:46 158/74 10/01/17 10:45 61 7 10/01/17 10:45 61 7 99 10/01/17 10:41 139/64 10/01/17 10:40 64 14 100 10/01/17 10:40 65 10/01/17 10:38 140/66 10/01/17 10:30 36.5 64 12 143/87 98 Oxymask 7 10/01/17 05:53 37 64 18 143/68 (93) 98 Room Air Notes Mental Status: alert / awake / arousable, participated in evaluation Pt Amnestic to Procedure: Yes Nausea / Vomiting: adequately controlled Pain: adequately controlled Airway Patency, RR, SpO2: stable & adequate BP & HR: stable & adequate Hydration State: stable & adequate Anesthetic Complications: no major complications apparent neurologically intact;no visual disturbances
[2017-10-01] MEDS ORDERED: INSULIN ASPART 100 UNITS/ML 3 ML PEN SC SCH (13:30)
[2017-10-01] MEDS ORDERED: IV FLUIDS COMPLETED PRN (13:30)
--- NOTE | 2017-10-01 13:39 | Medical Consult ---
Consultation Date of Consultation: Oct 01, 2017. Attending Physician: Migue Arrieta DO History of Present Illness 67 y/o M Hx CAD, DM II, HTN, obese, pacemaker, lumbar stenosis. Pt is post L4-5 ,L5-S1 laminectomy. Denies any significant pain post-op. Denies CP, SOB, N/V or lightheadedness. Past Medical/Surgical History 1) DM II 2) Lumbar stenosis 3) HTN 4) Pacemaker 5) Obesity 6) CAD - CABG 2012 Social History Smoking Status: Never Smoker Marital Status: Occupation Status: employed Allergies Uncoded Allergies: ENVIRONMENTAL (Allergy, Mild, hayfever, 10/01/17) Current Inpatient Medications Current Inpatient Medications Medications (Trade) Dose Ordered Sig/Gaby Route Start Time Stop Time Status Last Admin Dose Admin Sodium Chloride 1,000 ml @ 15 mls/hr Q24H IV 10/01/17 06:00 10/02/17 05:59 Cefazolin Sodium 22.5 ml @ 3 mls/min PREOP IV 10/01/17 06:00 10/01/17 18:00 Lactated Ringer's 1,000 ml @ 15 mls/hr Q24H IV 10/01/17 06:00 10/01/17 18:00 10/01/17 06:16 15 MLS/HR Hydromorphone HCl (Dilaudid Inj) 0.25 mg Q5M PRN IV 10/01/17 10:15 10/01/17 15:15 Naloxone HCl (Narcan Inj) 0.2 mg Q2M PRN IV 10/01/17 10:15 10/01/17 15:15 Flumazenil (Romazicon Inj) 0.2 mg Q2M PRN IV 10/01/17 10:15 10/01/17 15:15 Ondansetron HCl (Zofran Inj) 4 mg ONE PRN IV 10/01/17 10:15 10/01/17 15:15 Promethazine HCl 12.5 mg/Sodium Chloride 50.5 ml @ 202 mls/hr ONE PRN IV 10/01/17 10:15 10/01/17 15:15 Labetalol HCl (Normodyne IV) 5 mg Q5M PRN IV 10/01/17 10:15 10/01/17 15:15 Ephedrine Sulfate (EpHEDrine SULFATE INJ) 5 mg Q5M PRN IV 10/01/17 10:15 10/01/17 15:15 Atropine Sulfate (Atropine Sulfate 0.1mg/ml Inj) 0.5 mg Q1M PRN IV 10/01/17 10:15 10/01/17 15:15 Acetaminophen (Tylenol Tab) 650 mg Q6H PRN PO 10/01/17 10:30 10/31/17 10:29 Hydromorphone HCl (Dilaudid Inj) 1 mg Q3H PRN IV 10/01/17 10:30 10/15/17 10:29 Hydromorphone HCl (Dilaudid Inj) 1.5 mg Q3H PRN IV 10/01/17 10:30 10/15/17 10:29 Promethazine HCl 12.5 mg/Sodium Chloride 50.5 ml @ 202 mls/hr Q6H PRN IV 10/01/17 10:30 10/31/17 10:29 Ondansetron HCl (Zofran Inj) 4 mg Q6H PRN IV 10/01/17 10:30 10/31/17 10:29 Metoclopramide HCl (Reglan Inj) 10 mg Q6H PRN IV 10/01/17 10:30 10/31/17 10:29 Lorazepam (Ativan Tab) 1 mg Q6H PRN PO 10/01/17 10:30 10/31/17 10:29 Lorazepam 1 mg/ Syringe 0.5 ml @ 1 mls/min Q6H PRN IV 10/01/17 10:30 10/31/17 10:29 Polyethylene (Miralax Powder Packet) 17 gm DAILY PO 10/02/17 09:00 11/01/17 08:59 Bisacodyl (Dulcolax Tab) 5 mg DAILY PRN PO 10/02/17 06:00 11/01/17 05:59 Bisacodyl (Dulcolax Supp) 10 mg DAILY PRN DE 10/02/17 06:00 11/01/17 05:59 Magnesium Hydroxide (Milk Of Magnesia Susp) 30 ml DAILY PRN PO 10/01/17 10:30 10/31/17 10:29 Diphenhydramine HCl (Benadryl Cap) 25 mg Q6H PRN PO 10/01/17 10:30 10/31/17 10:29 Oxycodone/ Acetaminophen (Percocet 5-325mg Tab) 1 tab Q4H PRN PO 10/01/17 10:30 10/15/17 10:29 Oxycodone/ Acetaminophen (Percocet 5-325mg Tab) 2 tab Q4H PRN PO 10/01/17 10:30 10/15/17 10:29 Dexamethasone Sodium Phosphate 10 mg/Syringe 2.5 ml @ 1 mls/min Q8H IV 10/01/17 16:00 10/03/17 00:03 Sodium Chloride 1,000 ml @ 80 mls/hr [id number] IV 10/01/17 10:22 10/31/17 10:21 Aspirin (Ecotrin Tab) 650 mg BID PO 10/01/17 21:00 10/31/17 20:59 Aspirin (Aspirin Chew) 81 mg DAILY PO 10/02/17 09:00 11/01/17 08:59 Atorvastatin Calcium (Lipitor Tab) 20 mg QPM PO 10/01/17 21:00 10/31/17 20:59 Carvedilol (Coreg Tab) 25 mg BID PO 10/01/17 21:00 10/31/17 20:59 Lisinopril (Zestril Tab) 10 mg QAM PO 10/02/17 09:00 11/01/17 08:59 Metformin HCl (Glucophage Tab) 500 mg BID PO 10/01/17 21:00 10/31/17 20:59 Multivitamins (Multivitamin Tab) 1 tab QAM PO 10/02/17 09:00 11/01/17 08:59 Miscellaneous Information (Order Awaiting Action) 1 ea QS N/A 10/01/17 16:00 10/31/17 15:59 Cefazolin Sodium 2000 mg/Syringe 15 ml @ 3.75 mls/ min Q8H IV 10/01/17 14:00 10/02/17 06:03 Miscellaneous (Iv Fluids Completed) 1 ea PRN PRN N/A 10/01/17 13:30 10/01/18 13:29 Insulin Aspart (novoLOG ASPART) SLIDING SCALE G... Q6H SC 10/01/17 13:30 10/31/17 13:29 UNV Review of Systems Constitutional: No fever, No chills, No sweats Eyes: No worsening of vision ENT: No hearing loss, No nasal symptoms Respiratory: No cough, No sputum, No wheezing Cardiovascular: No chest pain Abdomen: No pain, No nausea, No vomiting Musculoskeletal: No joint pain Genitourinary - Male: No hematuria, No dysuria Neurologic: No memory loss, No paralysis, No weakness Psychiatric: No depression symptoms Endocrine: No fatigue Hematologic / Lymphatic: No abnormal bleeding/bruising Integumentary: No rash Allergic / Immunologic: No environmental allergies Physical Exam Date Time Temp Pulse Resp B/P (MAP) Pulse Ox O2 Delivery O2 Flow Rate FiO2 10/01/17 12:39 36.4 60 18 147/77 (100) 97 Nasal Cannula 3.0 10/01/17 12:10 36.3 60 16 149/80 (103) 97 Nasal Cannula 4.0 10/01/17 11:40 Nasal Cannula 2.0 10/01/17 11:40 36.3 61 14 163/83 (109) 96 Nasal Cannula 2.0 10/01/17 11:40 Nasal Cannula 2.0 10/01/17 11:15 36.5 153/72 10/01/17 11:11 163/76 10/01/17 11:10 68 12 98 10/01/17 11:10 68 12 10/01/17 11:06 156/78 10/01/17 11:05 63 14 97 10/01/17 11:05 63 10/01/17 11:01 157/67 10/01/17 11:00 67 16 96 10/01/17 11:00 67 10/01/17 10:56 Nasal Cannula 3 10/01/17 10:56 158/82 10/01/17 10:55 60 7 10/01/17 10:55 60 7 100 10/01/17 10:51 151/78 10/01/17 10:50 60 10 100 10/01/17 10:50 62 10 10/01/17 10:46 158/74 10/01/17 10:45 61 7 10/01/17 10:45 61 7 99 10/01/17 10:41 139/64 10/01/17 10:40 64 14 100 10/01/17 10:40 65 10/01/17 10:38 140/66 10/01/17 10:30 36.5 64 12 143/87 98 Oxymask 7 10/01/17 05:53 37 64 18 143/68 (93) 98 Room Air General Appearance: WD/WN, no apparent distress Head: normocephalic Eyes: normal inspection ENT: normal ENT inspection, pharynx normal Neck: supple, no JVD Respiratory/Chest: chest non-tender, lungs clear, normal breath sounds Cardiovascular: regular rate, rhythm, no edema, no gallop Abdomen/GI: normal bowel sounds, non tender, soft Back: normal inspection, no CVA tenderness Extremities/Musculoskelatal: normal inspection, no calf tenderness, normal capillary refill Neurologic/Psych: sales consultant II-XII nml as tested, no motor/sensory deficits, alert, oriented x 3, + pertinent finding (Pt has movement and feeling in his distal LEs ) Skin: normal color Laboratory Results Last 24 Hours Test 10/01/17 06:00 10/01/17 10:59 10/01/17 12:13 10/01/17 12:18 Bedside Glucose 118 mg/dl 189 mg/dl 224 mg/dl Assessment & Plan 67 y/o M Hx CAD, DM II, HTN, obese, pacemaker, lumbar stenosis. Pt is post L4-5 ,L5-S1 laminectomy. Denies any significant pain post-op. Denies CP, SOB, N/V or lightheadedness. 1) Post-op - pt is recovering well without specific complaints - maintain IVF, pain control - anticoagulation at earliest time. PT/OT per orthopedist. 2) CAD - cont ASA, Statin, Bblocker as prescribed 3) HTN - cont Carvedilol - resume Lisinopril AM 4) DM - Metformin held - placed on SS Total time for this consult including review of labs, meds, ortho notes, additional records - discussion/exam with pt - 34 min
[2017-10-01] MEDS: SODIUM CHLORIDE 0.9% 1000ML 1,000 ML IV SCH ×2 (13:54→22:38)
[2017-10-01] MEDS: CEFAZOLIN IV 2,000 MG in SYRINGE 0 ML IV SCH ×2 (13:54→21:36)
[2017-10-01] MEDS ORDERED: GLUCOSE 40% GEL 15 GM TUBE PO PRN (14:15)
[2017-10-01] MEDS ORDERED: DEXTROSE 50% 50 ML SYR IV PRN (14:15)
[2017-10-01] MEDS ORDERED: GLUCOSE 10 TABS/TUBE PO PRN (14:15)
[2017-10-01] MEDS ORDERED: GLUCAGON FOR INJ 1 MG VIAL SQ PRN (14:15)
[2017-10-01] MEDS ORDERED: NURSING VERBAL MED ORDER ONE (15:15)
[2017-10-01] MEDS: DEXAMETHASONE INJ 10 MG in SYRINGE 0 ML IV SCH (15:28)
[2017-10-01] MEDS: INSULIN ASPART 100 UNITS/ML 3 ML PEN SC SCH ×2 (17:39→21:32)
[2017-10-01] MEDS ORDERED: ASPIRIN 325 MG ECTAB PO SCH (21:00)
[2017-10-01] MEDS ORDERED: METFORMIN HCL 500 MG TAB PO SCH (21:00)
[2017-10-01] MEDS: ATORVASTATIN 20 MG TAB PO SCH (21:27)
[2017-10-01] MEDS: CARVEDILOL 25 MG TAB PO SCH (21:28)
[2017-10-02] VITALS (7 sets, daily range): BP systolic 119–144; BP diastolic 59–74; PULSE 77–92; TEMP 36.4–37.6; O2SAT 93–97
[2017-10-02] MEDS: DEXAMETHASONE INJ 10 MG in SYRINGE 0 ML IV SCH ×3 (00:03→15:29)
[2017-10-02] MEDS ORDERED: BISACODYL 10 MG SUPP PR PRN (06:00)
[2017-10-02] MEDS ORDERED: BISACODYL 5 MG TABEC PO PRN (06:00)
[2017-10-02] MEDS: CEFAZOLIN IV 2,000 MG in SYRINGE 0 ML IV SCH (06:32)
[2017-10-02] MEDS: MULTIVITAMIN TAB PO SCH (08:34)
[2017-10-02] MEDS: POLYETHYLENE (MIRALAX) 17 GM PACK PO SCH (08:35)
[2017-10-02] MEDS: LISINOPRIL 10 MG TAB PO SCH (08:35)
[2017-10-02] MEDS: CARVEDILOL 25 MG TAB PO SCH ×2 (08:35→21:29)
[2017-10-02] MEDS: INSULIN ASPART 100 UNITS/ML 3 ML PEN SC SCH ×3 (08:47→18:10)
[2017-10-02] MEDS ORDERED: ASPIRIN 81 MG CHEW PO SCH (09:00)
[2017-10-02] MEDS ORDERED: INSULIN GLARGINE SOLOSTAR 100 UNITS/ML 3 ML PEN SC SCH ×2 (09:00→21:00)
[2017-10-02 09:19] LABS: HEMATOCRIT 34.2 % (42-52); HEMOGLOBIN 11.3 g/dL (14.0-18.0); MEAN CELL VOLUME 91.4 fL (80-100); MEAN CORPUSCULAR HEMOGLOBIN 30.2 pg (25-34); MEAN PLATELET VOLUME 9.1 fL (7.4-10.4); PLATELET COUNT 225 K/uL (130-400); RED CELL DISTRIBUTION WIDTH CV 12.6 % (11.5-14.5); WHITE BLOOD COUNT 14.69 K/uL (4.8-10.8)
[2017-10-02] MEDS ORDERED: NURSING VERBAL MED ORDER ONE ×2 (09:30→18:15)
[2017-10-02 09:43] LABS: CALCIUM 8.6 mg/dl (8.5-10.1); CREATININE 1.07 mg/dl (0.60-1.40); POTASSIUM 4.3 mmol/L (3.5-5.1)
--- NOTE | 2017-10-02 10:14 | Hospitalist Progress Note ---
Hospitalist Progress Note Date of Service Oct 02, 2017. (Halle Smiht ., ROYA) Subjective Pt evaluation today including: conversation w/ patient, physical exam, lab review, review of studies, review of inpatient medication list Voiding: no voiding problems Patient sitting in bedside chair. Eating and drinking OK. +flatus, no BM postop. Pain is 1/10. Patient denies any fever, chills, sweats, lightheadedness, dizziness, vision changes, CP, palpitations, edema, SOB, wheezing, cough, abdominal pain, nausea, vomiting, diarrhea, urinary symptoms, melena, numbness/tingling, weakness, muscle/joint pain, anxiety/depression, active bleeding, or new skin discoloration/changes. (Halle Smith ., YESSENIAC) Medications Current Inpatient Medications Medications (Trade) Dose Ordered Sig/Gaby Route Start Time Stop Time Status Last Admin Dose Admin Acetaminophen (Tylenol Tab) 650 mg Q6H PRN PO 10/01/17 10:30 10/31/17 10:29 Hydromorphone HCl (Dilaudid Inj) 1 mg Q3H PRN IV 10/01/17 10:30 10/15/17 10:29 Hydromorphone HCl (Dilaudid Inj) 1.5 mg Q3H PRN IV 10/01/17 10:30 10/15/17 10:29 Promethazine HCl 12.5 mg/Sodium Chloride 50.5 ml @ 202 mls/hr Q6H PRN IV 10/01/17 10:30 10/31/17 10:29 Ondansetron HCl (Zofran Inj) 4 mg Q6H PRN IV 10/01/17 10:30 10/31/17 10:29 Metoclopramide HCl (Reglan Inj) 10 mg Q6H PRN IV 10/01/17 10:30 10/31/17 10:29 Lorazepam (Ativan Tab) 1 mg Q6H PRN PO 10/01/17 10:30 10/31/17 10:29 Lorazepam 1 mg/ Syringe 0.5 ml @ 1 mls/min Q6H PRN IV 10/01/17 10:30 10/31/17 10:29 Polyethylene (Miralax Powder Packet) 17 gm DAILY PO 10/02/17 09:00 11/01/17 08:59 2/9/18 08:35 17 GM Bisacodyl (Dulcolax Tab) 5 mg DAILY PRN PO 10/02/17 06:00 11/01/17 05:59 Bisacodyl (Dulcolax Supp) 10 mg DAILY PRN IN 10/02/17 06:00 11/01/17 05:59 Magnesium Hydroxide (Milk Of Magnesia Susp) 30 ml DAILY PRN PO 10/01/17 10:30 10/31/17 10:29 Diphenhydramine HCl (Benadryl Cap) 25 mg Q6H PRN PO 10/01/17 10:30 10/31/17 10:29 Oxycodone/ Acetaminophen (Percocet 5-325mg Tab) 1 tab Q4H PRN PO 10/01/17 10:30 10/15/17 10:29 Oxycodone/ Acetaminophen (Percocet 5-325mg Tab) 2 tab Q4H PRN PO 10/01/17 10:30 10/15/17 10:29 Dexamethasone Sodium Phosphate 10 mg/Syringe 2.5 ml @ 1 mls/min Q8H IV 10/01/17 16:00 10/03/17 00:03 10/02/17 08:36 1 MLS/MIN Sodium Chloride 1,000 ml @ 80 mls/hr [id number] IV 10/01/17 10:22 10/31/17 10:21 10/01/17 22:38 80 MLS/HR Atorvastatin Calcium (Lipitor Tab) 20 mg QPM PO 10/01/17 21:00 10/31/17 20:59 10/01/17 21:27 20 MG Carvedilol (Coreg Tab) 25 mg BID PO 10/01/17 21:00 10/31/17 20:59 10/02/17 08:35 25 MG Lisinopril (Zestril Tab) 10 mg QAM PO 10/02/17 09:00 11/01/17 08:59 10/02/17 08:35 10 MG Multivitamins (Multivitamin Tab) 1 tab QAM PO 10/02/17 09:00 11/01/17 08:59 10/02/17 08:34 1 TAB Miscellaneous Information (Order Awaiting Action) 1 ea QS N/A 10/01/17 16:00 10/31/17 15:59 Miscellaneous (Iv Fluids Completed) 1 ea PRN PRN N/A 10/01/17 13:30 10/01/18 13:29 Glucose (Glucose 40% Gel) 15-30 GRAMS 15 GRAMS... UD PRN PO 10/01/17 14:15 10/31/17 14:14 Glucose (Glucose Chew Tab) 4-8 Tablets 4 Tabl... UD PRN PO 10/01/17 14:15 10/31/17 14:14 Dextrose (Dextrose 50% 50ML Syringe) 25-50ML OF 50% DW IV FOR... UD PRN IV 10/01/17 14:15 10/31/17 14:14 Glucagon (Glucagon Inj) 1 mg UD PRN SQ 10/01/17 14:15 10/31/17 14:14 Insulin Aspart (novoLOG ASPART) SLIDING SCALE G... ACHS SC 10/01/17 17:15 10/31/17 17:14 10/02/17 08:47 12 UNITS Insulin Glargine (Lantus Solostar Pen) 10 units BID SC 10/02/17 09:00 11/01/17 08:59 10/02/17 09:42 10 UNITS Aspirin (Ecotrin Tab) 650 mg DAILY@2100 PO 10/02/17 21:00 11/01/17 20:59 (Halle Smith, ROYA) Objective Vital Signs Date Time Temp Pulse Resp B/P (MAP) Pulse Ox O2 Delivery O2 Flow Rate FiO2 10/02/17 07:53 37.6 86 16 138/72 (94) 94 Room Air 10/02/17 02:30 36.7 80 16 119/59 (79) 95 Room Air 10/01/17 23:40 37.0 105 18 112/69 (83) 93 Room Air 10/01/17 23:40 93 Room Air 10/01/17 21:23 84 154/75 (101) 10/01/17 19:29 37.0 80 18 144/72 (96) 93 Room Air 10/01/17 15:20 36.4 67 16 138/69 (92) 99 Nasal Cannula 2.0 10/01/17 15:15 Nasal Cannula 2.0 10/01/17 14:34 36.6 70 16 153/77 (102) 99 Nasal Cannula 2.0 10/01/17 13:42 36.8 60 18 143/72 (95) 99 Nasal Cannula 2.0 10/01/17 12:39 36.4 60 18 147/77 (100) 97 Nasal Cannula 3.0 10/01/17 12:10 36.3 60 16 149/80 (103) 97 Nasal Cannula 4.0 10/01/17 11:40 Nasal Cannula 2.0 10/01/17 11:40 36.3 61 14 163/83 (109) 96 Nasal Cannula 2.0 10/01/17 11:40 Nasal Cannula 2.0 10/01/17 11:15 36.5 153/72 10/01/17 11:11 163/76 10/01/17 11:10 68 12 98 10/01/17 11:10 68 12 10/01/17 11:06 156/78 10/01/17 11:05 63 14 97 10/01/17 11:05 63 10/01/17 11:01 157/67 10/01/17 11:00 67 16 96 10/01/17 11:00 67 10/01/17 10:56 Nasal Cannula 3 10/01/17 10:56 158/82 10/01/17 10:55 60 7 10/01/17 10:55 60 7 100 10/01/17 10:51 151/78 10/01/17 10:50 60 10 100 10/01/17 10:50 62 10 10/01/17 10:46 158/74 10/01/17 10:45 61 7 10/01/17 10:45 61 7 99 10/01/17 10:41 139/64 10/01/17 10:40 64 14 100 10/01/17 10:40 65 10/01/17 10:38 140/66 10/01/17 10:30 36.5 64 12 143/87 98 Oxymask 7 (Halle Smith, PA-C) Physical Exam General Appearance: no apparent distress, + obese Eyes: normal inspection, PERRL ENT: hearing grossly normal Neck: supple Respiratory/Chest: lungs clear, no respiratory distress, no accessory muscle use Cardiovascular: regular rate, rhythm, + systolic murmur Abdomen: normal bowel sounds, non tender, soft Extremities: no calf tenderness, + swelling (trace pitting edema to bilateral lower extremities ), + pertinent finding (+hemovac w/ bloody output ) Neurologic/Psychiatric: alert, normal mood/affect, oriented x 3 Skin: normal color, warm/dry, no rash (Halle Smith PA-C) Laboratory Results Last 24 Hours Test 10/01/17 10:59 10/01/17 12:13 10/01/17 12:18 10/01/17 17:33 Bedside Glucose 189 mg/dl 224 mg/dl 230 mg/dl Hepatitis C Antibody Screen NEG Test 10/01/17 21:03 10/02/17 08:05 Bedside Glucose 291 mg/dl 254 mg/dl (Halle Smith PA-C) Assessment and Plan 67 y/o M Hx CAD, DM II, HTN, obese, pacemaker, lumbar stenosis. Pt is post L4-5 ,L5-S1 laminectomy. Denies any significant pain post-op. Denies CP, SOB, N/V or lightheadedness. s/p lumbar surgery by Dr. Arrieta on 10/01: - Surgical management, pain management, PT/OT, and DVT prophylaxis as per primary team - Bowel regimen order - Encouraged incentive spirometer - Follow postop CBC and PRP CAD s/p CABG in 2012, s/p pacemaker, cardiomyopathy w/ reduced EF- RESOLVED ( per patient), HTN, HLD- follows w/ Dr. El: - IVF @ 80 ml/hr- eating/drinking OK, operations and maintenance specialist OK- will d/c fluids - Continue ASA 650 mg daily, Lipitor 20 mg daily, Lisinopril 10 mg daily, Coreg 25 mg BID - Lasted ECHO 10/2016- EF 50-54%, diastolic dysfunction T2DM w/ hyperglycemia secondary to IV Decadron- hgbA1c 7.3% in 08/2017: - Hold Metformin 500 mg BID, Novolin 36 u QAM and 56 u HS while inpatient - BSG ACHS and ISS - Lantus 10 u BID- adjust PRN DVT prophylaxis: ASA 650 mg daily as per surgical team Code Status: LEVEL I, FULL Dispo: As per primary team (Halle Smith PA-C) Reviewed: Pt Seen/Exam by Me (Nika Worthington MD) History Physician Diamond Grader supervision Note: I interviewed and examined the patient. Discussed with ERIN Smith and agree with findings and plan as documented in the note. Any exceptions or clarifications are listed here: Scratch that Patient feeling great. Orthopedics has discontinued the IV Decadron. His sugars remain quite elevated but are improved since starting Lantus this morning. He denies any chest pain or shortness of breath. Is tolerating p.o. Is likely getting discharged to home tomorrow Vitals reviewed NAD, overweight, very pleasant, sitting in chair, AAO 3 Gen: AAOx3, NAD HEENT: anicteric sclerae, EOMI CV: RRR no mgr nl S1S2 Pulm: CTAB no wcr Abd: +BS soft NT ND no masses or hernias Ext: no edema, 2+ DP pulses Skin: no rashes, warm/dry Patient is a 67-year-old male with history of CAD status post CABG and now resolved ischemic cardiomyopathy/chronic systolic CHF, chronic diastolic CHF, PPM for unexplained syncope, hypertension, dyslipidemia, diabetes mellitus type 2, here status post lumbar decompression and fusion. Diabetes mellitus with hyperglycemia secondary to corticosteroids-is normally on high doses of Novolin 70/30 at home-we will increase Lantus to 20 units for tonight and then restart his home doses of Lantus tomorrow in preparation for discharge. I suspect his glucose will improve now that the Decadron has been discontinued. Normally he is very well controlled CAD/HTN/PPM/chronic diastolic CHF-all stable at this time -Continue home medications Follow labs in the morning and likely can be discharged home tomorrow Documented By: Nika Worthington (Nika Worthington MD)
--- NOTE | 2017-10-02 11:08 | Anesthesiology Progress Note ---
Anesthesia Post Op Note Date & Time Oct 02, 2017 at 11:07 Vital Signs Pain Intensity: 1.0 Vital Signs Past 12 Hours Date Time Temp Pulse Resp B/P (MAP) Pulse Ox O2 Delivery O2 Flow Rate FiO2 10/02/17 10:16 94 Room Air 10/02/17 07:53 36.7 86 16 138/72 (94) 94 Room Air 10/02/17 07:25 Room Air 10/02/17 02:30 36.7 80 16 119/59 (79) 95 Room Air 10/01/17 23:40 37.0 105 18 112/69 (83) 93 Room Air 10/01/17 23:40 93 Room Air Notes Mental Status: alert / awake / arousable, participated in evaluation Pt Amnestic to Procedure: Yes Nausea / Vomiting: adequately controlled Pain: adequately controlled Airway Patency, RR, SpO2: stable & adequate BP & HR: stable & adequate Hydration State: stable & adequate Anesthetic Complications: no major complications apparent
[2017-10-02] MEDS ORDERED: HYDR-4383 PO ×2 (12:22)
--- NOTE | 2017-10-02 12:29 | ORTHOPEDICS PROGRESS NOTE ---
DATE: 10/02/2017 SUBJECTIVE: Alert, oriented. Minimal complaints of pain. No fevers, sweats or chills. OBJECTIVE: Vital signs stable; 36.7 temperature, afebrile, pulse normal. ASSESSMENT: He is now approximately 24 hours after a major reconstructive decompression procedure. We decompressed the neural elements L4 to the sacrum. He got bony fusion without instrumentation. DISPOSITION: We will have him up ambulatory today, get his drain changed. I initially thought he might be able to get home this evening. I think it might be better to wait until tomorrow morning for discharge.
[2017-10-02] MEDS ORDERED: ASPIRIN 81 MG ECTAB PO SCH (21:00)
[2017-10-02] MEDS ORDERED: INSULIN ASPART 100 UNITS/ML 3 ML PEN SC SCH (21:00)
[2017-10-02] MEDS ORDERED: ASPIRIN 325 MG ECTAB PO SCH (21:00)
[2017-10-02] MEDS: ATORVASTATIN 20 MG TAB PO SCH (21:29)
[2017-10-03 06:28] LABS: HEMATOCRIT 32.2 % (42-52); HEMOGLOBIN 10.7 g/dL (14.0-18.0); MEAN CELL VOLUME 91.2 fL (80-100); MEAN CORPUSCULAR HEMOGLOBIN 30.3 pg (25-34); MEAN CORPUSCULAR HGB CONC 33.2 g/dl (32-36); MEAN PLATELET VOLUME 9.7 fL (7.4-10.4); PLATELET COUNT 219 K/uL (130-400); RED CELL DISTRIBUTION WIDTH CV 12.8 % (11.5-14.5); RED CELL DISTRIBUTION WIDTH SD 42.3 fL (36.4-46.3); WHITE BLOOD COUNT 14.77 K/uL (4.8-10.8)
[2017-10-03 07:07] LABS: CALCIUM 8.9 mg/dl (8.5-10.1); CREATININE 0.87 mg/dl (0.60-1.40); POTASSIUM 4.3 mmol/L (3.5-5.1)
[2017-10-03 07:30] VITALS: BP 149/71; PULSE 71; TEMP 36.9; O2SAT 94
[2017-10-03] MEDS ORDERED: INSULIN HUMAN 70% NPH/30% REGULAR SC SCH ×2 (08:30→17:45)
[2017-10-03] MEDS: MULTIVITAMIN TAB PO SCH (08:38)
[2017-10-03] MEDS: POLYETHYLENE (MIRALAX) 17 GM PACK PO SCH (08:38)
[2017-10-03] MEDS: LISINOPRIL 10 MG TAB PO SCH (08:39)
[2017-10-03] MEDS: CARVEDILOL 25 MG TAB PO SCH (08:39)
--- NOTE | 2017-10-03 10:21 | PROGRESS NOTE ---
DATE: 10/03/2017 CHIEF COMPLAINT: Status post L4-S1 laminectomy. PROGRESS: Hoang was seen and examined at bedside today. Overall, he is doing fairly well. He still has some numbness in his foot and pain in his leg, but he has been up and ambulating. He is doing fairly well. He has no complaints. PHYSICAL EXAMINATION: He is by bedside today, eating breakfast. He still has some numbness that extends down towards his foot and some pain in his back and his right hip. IMPRESSION: Status post L4-S1 laminectomy. PLAN: At this point, he is doing fairly well. He is responding well from the surgery. He is just waiting for the symptoms to subside. He is orthopedically stable for discharge today.
[2017-10-03 10:23] VITALS: BP 149/71; PULSE 71; TEMP 36.9; O2SAT 94
[2017-10-03] MEDS ORDERED: INSULIN ASPART 100 UNITS/ML 3 ML PEN SC SCH (12:30)
== END 2017-10-03 11:37 | disposition home or self-care (01) ==
LOC: C.ACU 05:27 → C.3E 08:10 → ENRESERV 11:15
PROVIDERS: ADMIT Orthopaedic Surgery Orthopaedic Surgery of the Spine; ATTEND Orthopaedic Surgery Orthopaedic Surgery of the Spine
DX: M48.07 Spinal stenosis, lumbosacral region (principal); E11.65 Type 2 diabetes mellitus with hyperglycemia; T38.0X5A Adverse effect of glucocorticoids and synthetic analogues, initial encounter; I11.0 Hypertensive heart disease with heart failure; I50.42 Chronic combined systolic (congestive) and diastolic (congestive) heart failure; E66.9 Obesity, unspecified; Z95.1 Presence of aortocoronary bypass graft; Z95.0 Presence of cardiac pacemaker; Z79.899 Other long term (current) drug therapy; Z79.4 Long term (current) use of insulin; I25.10 Atherosclerotic heart disease of native coronary artery without angina pectoris; Z79.82 Long term (current) use of aspirin; Z79.84 Long term (current) use of oral hypoglycemic drugs

== ENCOUNTER → 2017-10-20 | Outpatient (CLI) | payer OTHER ==
[~2017-10-20] MED LIST changes: +AMOX500C3 PO; +ASPCH81X PO; -ASPI325T45 PO; -CINN500C13 PO; +FLUT1INH INH; -GABA-113 PO; +HYDR-4383 PO; +OXYC1TAB3 PO; +POLY335019 PO; +PRED10TA PO
--- NOTE | 2017-10-20 11:13 | DIAGNOSTIC IMAGING REPORT ---
CHEST 2 VIEWS ROUTINE CLINICAL HISTORY: BRONCHITIS COMPARISON STUDY: No previous studies for comparison. FINDINGS: The cardiac and mediastinal contours are normal. There is no evidence of focal pulmonary consolidation. There is no evidence of failure. No pleural effusions are visualized.[ There is a left subclavian dual-chamber central venous pacemaker present. A 7 mm rounded opacity at the right lung base, likely represents a nipple shadow. No corresponding nodules are visualized in the lateral view. IMPRESSION: No active disease in the chest. Electronically signed by: Haresh Knox M.D. 10/20/2017 11:12 AM Dictated Date/Time: 10/20/2017 11:11 AM
== END | disposition home or self-care (01) ==
LOC: C.RADPV 10:52
PROVIDERS: ATTEND Nurse Practitioner
DX: J20.9 Acute bronchitis, unspecified (principal)

== ENCOUNTER 2017-10-27 14:56 | Emergency (ER) | payer OTHER ==
[~2017-10-27] VITALS: Ht 185.4 cm; Wt 118.0 kg
[~2017-10-27 14:56] MED LIST changes: -AMOX500C3 PO; -FLUT1INH INH; -OXYC1TAB3 PO; -POLY335019 PO; -PRED10TA PO
[2017-10-27 15:01] VITALS: TEMP 36.7; Ht 185.4 cm; Wt 118.0 kg
[2017-10-27] MEDS ORDERED: ONDANSETRON INJ 2 MG/ML 2 ML VIAL IV STA (15:12)
--- NOTE | 2017-10-27 15:21 | EMERGENCY ROOM VISIT NOTE ---
History Report prepared by Lam: pamela Escobedo Under the Supervision of: Dr. Mehul Sánchez D.O. First contact with patient: 15:05 Chief Complaint: SYNCOPE Stated Complaint: SYNCOPE, FALL, PACEMAKER, BACK SURG 3 WKS AGO History of Present Illness The patient is a 67 year old male who presents to the Emergency Room with complaints of a syncopal episode [employer]. The patient reports he was "taking a big hit" of his inhaler to fight bronchitis and passed out. He is accompanied by his who reports he hit his ribs on metal doorknobs on the way down. He denies any abdominal pain, leg swelling or pain, pain while walking, headaches, and SOB. He does note that the transition from sitting to walking is a worsening factor because it "feels like a knife is stabbing his ribs." The patient states he would not be here if he did not hit his ribs and chest. Source of History: patient, spouse/significant other () Onset: [employer] Position: other (global) Quality: stabbing (in his ribs), other (syncopal episode) Modifying Factors (Worsening): other (transitioning from sitting to walking) Associated Symptoms: + LOC, No headache, No SOB, No abdominal pain Note: Negative leg swelling or pain. Negative pain while walking. Review of Systems See HPI for pertinent positives & negatives. A total of 10 systems reviewed and were otherwise negative. Past Medical & Surgical Medical Problems: (1) Lumbar stenosis Family History Family history omitted secondary to patient's age. Social History Smoking Status: Never Smoker Marital Status: Occupation Status: employed Current/Historical Medications Scheduled Amoxicillin (Amoxil), 500 MG PO QID Aspirin (Aspirin Chewable), 81 MG PO DAILY Atorvastatin (Lipitor), 20 MG PO QPM Carvedilol (Coreg), 25 MG PO BID Insulin Aspart (Novolog Flexpen), 1 DOSE SQ UD Insulin Isophan/Regular (Novolin 70/30), 36 UNITS SC QAM Insulin Isophan/Regular (Novolin 70/30), 56 UNITS SC QPM Lisinopril (Zestril), 10 MG PO QAM Metformin Hcl (Glucophage), 500 MG PO BID Multiple Vitamin (Multi Vitamin Daily), 1 TAB PO QAM Polyethylene Glycol 3350 (Miralax), 17 GM PO DAILY Prednisone Tab (Prednisone), 1 TAB PO UD Scheduled PRN Albuterol Hfa (Ventolin Hfa), 1-2 PUFFS INH Q4H PRN for SOB/Wheezing Fluticasone Furoate-Vilanterol (Breo Ellipta), 1 DOSE INH UD PRN for BRONCHITIS Oxycodone Immediate Rel Tab (Roxicodone Ir), 1-2 TAB PO Q4H PRN for Severe Pain Allergies Coded Allergies: No Known Allergies (Unverified , 10/27/17) Physical Exam Vital Signs Date Time Temp Pulse Resp B/P (MAP) Pulse Ox O2 Delivery O2 Flow Rate FiO2 10/27/17 17:12 77 20 115/70 74 Room Air 10/27/17 16:24 72 20 105/62 98 Room Air 10/27/17 15:21 60 10/27/17 15:01 36.7 69 17 134/78 97 Room Air Physical Exam GENERAL: Patient is awake, alert, and in no acute distress. Patient is showing no signs of anxiety, but appears to be uncomfortable. EYES: The conjunctivae are clear. The pupils are round and reactive. EARS, NOSE, MOUTH AND THROAT: The nose is without any evidence of any deformity. Mucous membranes are moist tongue is midline NECK: The neck is nontender and supple. RESPIRATORY: Splinting respirations were noted. Diminished breath sounds in the left lung field. CARDIOVASCULAR: Regular rate and rhythm noted there no murmurs rubs or gallops normal S1 normal S2 GASTROINTESTINAL: The abdomen is soft. Bowel sounds are present in all quadrants. Abdomen is nontender BACK: No midline tenderness noted. Recent surgical site noted in the lumbar spine. No swelling or erythema noted to the surgical site. 2 curvilinear abrasions noted over the left lateral rib cage. There is significant tenderness over this area. MUSCULOSKELETAL/EXTREMITIES: There is no evidence of gross deformity full range of motion is noted in the hips and shoulders SKIN: There is no obvious evidence of any rash. There are no petechiae, pallor or cyanosis noted. NEUROLOGIC: Patient is awake alert and oriented x3 strength is symmetric patellar reflexes are 2+ bilaterally Medical Decision & Procedures ER Provider Diagnostic Interpretation: Radiology results as stated below per my review and radiologist interpretation: (CHEST FOR PE) ANGIO WITH CT DOSE: 946.45 mGy.cm HISTORY: Chest pain dyspnea TECHNIQUE: Multiaxial CT images of the chest were performed following the intravenous administration of contrast to evaluate the pulmonary arteries. Maximal intensity projection images were also obtained. A dose lowering technique was utilized adhering to the principles of ALARA. COMPARISON STUDY: None. FINDINGS: Moderate cardiomegaly. Prior median sternotomy. Left shoulder arthroplasty. Bipolar cardiac pacemaker. The pulmonary vasculature enhances appropriately. No filling defects are appreciated. Moderate peribronchial thickening throughout both hemithoraces. No well-defined focal infiltrate. IMPRESSION: No evidence for pulmonary embolus. Moderate peribronchial thickening. The above report was generated using voice recognition software. It may contain grammatical, syntax or spelling errors. Electronically signed by: Sylvain Spence M.D. 10/27/2017 4:48 PM Dictated Date/Time: 10/27/2017 4:44 PM Laboratory Results 10/27/17 15:00 Red Blood Count 4.19, Mean Corpuscular Volume 88.5, Mean Corpuscular Hemoglobin 29.8, Mean Corpuscular Hemoglobin Concent 33.7, Mean Platelet Volume 9.0, Neutrophils (%) (Auto) 71.1, Lymphocytes (%) (Auto) 17.7, Monocytes (%) (Auto) 9.4, Eosinophils (%) (Auto) 1.3, Basophils (%) (Auto) 0.2, Neutrophils # (Auto) 8.85, Lymphocytes # (Auto) 2.21, Monocytes # (Auto) 1.17, Eosinophils # (Auto) 0.16, Basophils # (Auto) 0.03 10/27/17 15:00 Test 10/27/17 15:00 10/27/17 15:26 White Blood Count 12.46 K/uL (4.8-10.8) Red Blood Count 4.19 M/uL (4.7-6.1) Hemoglobin 12.5 g/dL (14.0-18.0) Hematocrit 37.1 % (42-52) Mean Corpuscular Volume 88.5 fL (80-100) Mean Corpuscular Hemoglobin 29.8 pg (25-34) Mean Corpuscular Hemoglobin Concent 33.7 g/dl (32-36) Platelet Count 321 K/uL (130-400) Mean Platelet Volume 9.0 fL (7.4-10.4) Neutrophils (%) (Auto) 71.1 % Lymphocytes (%) (Auto) 17.7 % Monocytes (%) (Auto) 9.4 % Eosinophils (%) (Auto) 1.3 % Basophils (%) (Auto) 0.2 % Neutrophils # (Auto) 8.85 K/uL (1.4-6.5) Lymphocytes # (Auto) 2.21 K/uL (1.2-3.4) Monocytes # (Auto) 1.17 K/uL (0.11-0.59) Eosinophils # (Auto) 0.16 K/uL (0-0.5) Basophils # (Auto) 0.03 K/uL (0-0.2) RDW Standard Deviation 42.3 fL (36.4-46.3) RDW Coefficient of Variation 13.4 % (11.5-14.5) Immature Granulocyte % (Auto) 0.3 % Immature Granulocyte # (Auto) 0.04 K/uL (0.00-0.02) Prothrombin Time 10.1 SECONDS (9.0-12.0) Prothromb Time International Ratio 1.0 (0.9-1.1) Activated Partial Thromboplast Time 22.9 SECONDS (21.0-31.0) Partial Thromboplastin Ratio 0.9 Est Creatinine Clear Calc Drug Dose 92.0 ml/min Estimated GFR () 86.5 Estimated GFR (Non- 74.6 BUN/Creatinine Ratio 21.4 (10-20) Calcium Level 8.8 mg/dl (8.5-10.1) Total Bilirubin 0.3 mg/dl (0.2-1) Direct Bilirubin 0.1 mg/dl (0-0.2) Aspartate Amino Transf (AST/SGOT) 13 U/L (15-37) Alanine Aminotransferase (ALT/SGPT) 31 U/L (12-78) Alkaline Phosphatase 80 U/L (45-117) Total Creatine Kinase 163 U/L (39-308) Creatine Kinase MB 5.8 ng/ml (0.5-3.6) Creatine Kinase MB Ratio 3.6 (0-3.0) Troponin I < 0.015 ng/ml (0-0.045) Total Protein 7.5 gm/dl (6.4-8.2) Albumin 3.5 gm/dl (3.4-5.0) Lipase 160 U/L (73-393) Bedside Hemoglobin 12.9 g/dl (14.0-18.0) Bedside Hematocrit 38 % (42-52) Bedside Sodium 136 mEq/L (135-144) Bedside Potassium 4.4 mEq/L (3.3-5.0) Bedside Chloride 97 mEq/L (101-112) Bedside Total CO2 27 mEq/l (24-31) Anion Gap 18.0 mmol/L (16-25) Bedside Blood Urea Nitrogen 23 mg/dl (7-18) Bedside Creatinine 0.9 mg/dl (0.6-1.3) Bedside Glucose (other) 135 mg/dl (70-99) Bedside Ionized Calcium (Benjamín) 1.21 mmol/l (1.12-1.32) Laboratory results per my review. Medications Administered Medications (Trade) Dose Ordered Sig/Gaby Route Start Time Stop Time Status Last Admin Dose Admin Morphine Sulfate (MoRPHine SULFATE INJ) 4 mg Q15M PRN IV 10/27/17 15:15 11/10/17 15:14 10/27/17 16:09 4 MG Ondansetron HCl (Zofran Inj) 4 mg NOW STAT IV 10/27/17 15:12 10/27/17 15:15 DC 10/27/17 15:29 4 MG ECG Per My Interpretation Indication: syncope Rate (beats per minute): 61 Rhythm: other (ventricular pacemaker) Findings: PVC, other (No [place] beats) Comparison ECG Date: 08/07/17 Change: no significant change ED Course 1507: The patient was evaluated in room A11. A complete history and physical examination were performed. 1512: Zofran Inj 4 mg IV 1515: Morphine Sulfate 4 mg IV 1548: I checked on the patient at this time. His pain has improved, but he is still having significant pain. 1650: Yao, with [employer], interrogated the pacemaker. 1708: Upon reevaluation, the patient is feeling much better. I discussed the results and treatment plan with him. He verbalized agreement of the treatment plan. He was discharged home. Medical Decision Prior records/ancillary studies reviewed. Triage Nursing notes reviewed. Additional history obtained from his . The patient's history was concerning for traumatic injury Differential diagnosis: Etiologies such as fracture, dislocation, intra-abdominal, pneumothorax, intrathoracic , intracranial, neurologic, as well as other traumatic pathologies were entertained. The patient is a 67-year-old male who presented to the emergency department for an evaluation of left-sided chest pain. The patient had a syncopal episode while using an inhaler. He had back surgery recently and was diagnosed with bronchitis after multiple visits to his primary care physician. The patient had significant left sided chest wall pain. This was posterior and appeared to be associated with a chest wall injury. I discussed the patient's laboratory and radiographic studies with him. CT did not reveal any definite intrathoracic trauma and also did not identify definite rib fracture although given the patient's presentation I feel this is likely that he suffered a nondisplaced rib fracture or possibly multiple. He was encouraged to rest and avoid any strenuous activity. Was also encouraged to continue using his incentive spirometer that he had from his recent surgery. I also encouraged him to follow-up with his primary care physician this week for reevaluation but return to the emergency department immediately symptoms change worsen or the need arises. Medication Reconcilliation Current Medication List: was personally reviewed by me Blood Pressure Screening Patient's blood pressure: Normal blood pressure Blood pressure disposition: Did not require urgent referral Impression Primary Impression: Fall Additional Impressions: Syncope Contusion of chest Scribe Attestation The scribe's documentation has been prepared under my direction and personally reviewed by me in its entirety. I confirm that the note above accurately reflects all work, treatment, procedures, and medical decision making performed by me. Departure Information Dispostion Home / Self-Care Prescriptions Oxycodone Immediate Rel Tab (ROXICODONE IR) 5 Mg Tab 1-2 TAB PO Q4H Y for Severe Pain, #25 TAB Prov: Mehul Sánchez, DO 10/27/17 Polyethylene Glycol 3350 (MIRALAX) 1 Pow Pow 17 GM PO DAILY, #527 GM Prov: Mehul Sánchez, DO 10/27/17 Referrals Zara Rodriguez C.RHectorN.P (PCP) Forms HOME CARE DOCUMENTATION FORM, IMPORTANT VISIT INFORMATION Patient Instructions My [facility] Additional Instructions Continue all medications as prescribed. Rest and avoid any strenuous activity. Continue using Motrin and Tylenol as directed for mild pain. Continue using her incentive spirometer 6-10 times a day. Follow-up with your doctor this week. Return to the emergency department immediately if symptoms change worsen or the need arises. Problem Qualifiers Primary Impression: Fall Encounter type: initial encounter Qualified Codes: W19.XXXA - Unspecified fall, initial encounter Additional Impressions: Syncope Syncope type: unspecified Qualified Codes: R55 - Syncope and collapse Contusion of chest Encounter type: initial encounter Laterality: left Qualified Codes: S20.212A - Contusion of left front wall of thorax, initial encounter
[2017-10-27] MEDS: MoRPHine SULFATE 4 MG/ML 1 ML CARP\\VIAL IV PRN ×2 (15:29→16:09)
[2017-10-27 15:30] LABS: BASO % 0.2 %; BASO ABS # 0.03 K/uL (0-0.2); EOS % 1.3 %; EOS ABS # 0.16 K/uL (0-0.5); HEMATOCRIT 37.1 % (42-52); HEMOGLOBIN 12.5 g/dL (14.0-18.0); IG# 0.04 K/uL (0.00-0.02); LYMPH % 17.7 %; LYMPH ABS # 2.21 K/uL (1.2-3.4); MEAN CELL VOLUME 88.5 fL (80-100); MEAN CORPUSCULAR HEMOGLOBIN 29.8 pg (25-34); MEAN CORPUSCULAR HGB CONC 33.7 g/dl (32-36); MONO % 9.4 %; MONO ABS # 1.17 K/uL (0.11-0.59); NEUT % 71.1 %; NEUT ABS # 8.85 K/uL (1.4-6.5); PLATELET COUNT 321 K/uL (130-400); RED CELL DISTRIBUTION WIDTH CV 13.4 % (11.5-14.5); RED CELL DISTRIBUTION WIDTH SD 42.3 fL (36.4-46.3); WHITE BLOOD COUNT 12.46 K/uL (4.8-10.8)
[2017-10-27 15:38] LABS: ISTAT CREATININE 0.9 mg/dl (0.6-1.3); ISTAT IONIZED CALCIUM 1.21 mmol/l (1.12-1.32); ISTAT POTASSIUM 4.4 mEq/L (3.3-5.0)
[2017-10-27 15:44] LABS: PTT PATIENT 22.9 SECONDS (21.0-31.0)
[2017-10-27 15:51] LABS: ALBUMIN 3.5 gm/dl (3.4-5.0); ALT/SGPT 31 U/L (12-78); AST/SGOT 13 U/L (15-37); BLOOD UREA NITROGEN 22 mg/dl (7-18); CALCIUM 8.8 mg/dl (8.5-10.1); CARBON DIOXIDE 25 mmol/L (21-32); CREATININE 1.02 mg/dl (0.60-1.40); GLUCOSE 133 mg/dl (70-99); LIPASE 160 U/L (73-393); POTASSIUM 4.3 mmol/L (3.5-5.1); SODIUM 133 mmol/L (136-145)
[2017-10-27 15:57] LABS: ALKALINE PHOSPHATASE 80 U/L (45-117); CKMB 5.8 ng/ml (0.5-3.6); TOTAL PROTEIN 7.5 gm/dl (6.4-8.2)
[2017-10-27] MEDS ORDERED: PRED10TA PO (16:15)
[2017-10-27] MEDS ORDERED: INSU70IN2 SC ×2 (16:15)
[2017-10-27] MEDS ORDERED: AMOX500C3 PO (16:15)
[2017-10-27] MEDS ORDERED: FLUT1INH INH (16:15)
--- NOTE | 2017-10-27 16:50 | DIAGNOSTIC IMAGING REPORT ---
(CHEST FOR PE) ANGIO WITH CT DOSE: 946.45 mGy.cm HISTORY: Chest pain dyspnea TECHNIQUE: Multiaxial CT images of the chest were performed following the intravenous administration of contrast to evaluate the pulmonary arteries. Maximal intensity projection images were also obtained. A dose lowering technique was utilized adhering to the principles of ALARA. COMPARISON STUDY: None. FINDINGS: Moderate cardiomegaly. Prior median sternotomy. Left shoulder arthroplasty. Bipolar cardiac pacemaker. The pulmonary vasculature enhances appropriately. No filling defects are appreciated. Moderate peribronchial thickening throughout both hemithoraces. No well-defined focal infiltrate. IMPRESSION: No evidence for pulmonary embolus. Moderate peribronchial thickening. The above report was generated using voice recognition software. It may contain grammatical, syntax or spelling errors. Electronically signed by: Sylvain Spence M.D. 10/27/2017 4:48 PM Dictated Date/Time: 10/27/2017 4:44 PM
[2017-10-27 17:12] VITALS: BP 115/70; PULSE 77; O2SAT 74
[2017-10-27] MEDS ORDERED: OXYC1TAB3 PO (17:16)
[2017-10-27] MEDS ORDERED: POLY335019 PO (17:16)
[2017-10-27] MEDS ORDERED: OXYCODONE IR HOME PACK PO ONE (17:45)
== END 2017-10-27 17:51 | disposition home or self-care (01) ==
LOC: C.EDB 14:57 → C.EDA 17:51
DX: R55 Syncope and collapse (principal); S20.212A Contusion of left front wall of thorax, initial encounter; W18.39XA Other fall on same level, initial encounter; Z95.0 Presence of cardiac pacemaker; J40 Bronchitis, not specified as acute or chronic; M48.061 Spinal stenosis, lumbar region without neurogenic claudication; Z98.890 Other specified postprocedural states; Z79.82 Long term (current) use of aspirin; Z79.4 Long term (current) use of insulin

== ENCOUNTER 2017-10-30 14:31 | Inpatient (IN) | payer OTHER ==
[~2017-10-30] VITALS: Ht 185.4 cm; Wt 123.0 kg
[~2017-10-30 14:31] MED LIST changes: +AMOX500C3 PO; -CLRD/12 PO; +FLUT1INH INH; -HYDR-4383 PO; +OXYC1TAB3 PO; +POLY335019 PO; +PRED10TA PO
[2017-10-30] MEDS ORDERED: SODIUM CHLORIDE 0.9% 1000ML 1,000 ML IV STA ×2 (14:46→18:01)
[2017-10-30] MEDS ORDERED: ONDANSETRON INJ 2 MG/ML 2 ML VIAL IV STA (14:46)
[2017-10-30] MEDS ORDERED: MoRPHine SULFATE 10 MG/ML CARP/VIAL IV STA (14:46)
[2017-10-30] MEDS ORDERED: OPTIRAY 320 IV PRN (15:00)
--- NOTE | 2017-10-30 15:20 | DIAGNOSTIC IMAGING REPORT ---
CHEST ONE VIEW PORTABLE HISTORY: 67 years-old Male cp acute atypical chest pain COMPARISON: Chest radiographs 10/20/2017, CTA chest 10/27/2017 TECHNIQUE: Semierect AP view of the chest FINDINGS: Cardiomediastinal and hilar silhouettes are within normal limits. Prior median sternotomy and CABG. Left subclavian pacer is noted with leads appearing to be intact. There is no pneumothorax, pleural effusion, focal airspace consolidation or overt pulmonary edema. Acute minimally displaced fracture of the posterior left eighth rib is noted with additional fractures of the left ribs better seen on CT chest 10/27/2017. Left shoulder arthroplasty. IMPRESSION: 1. No acute process of the chest. 2. Acute minimally displaced fracture of the posterior left eighth rib with additional acute left-sided rib fractures better seen on CT chest 10/27/2017. No pneumothorax identified. The above report was generated using voice recognition software. It may contain grammatical, syntax or spelling errors. Electronically signed by: Chele Gaitan M.D. 10/30/2017 3:19 PM Dictated Date/Time: 10/30/2017 3:15 PM
[2017-10-30 15:32] LABS: BASO % 0.1 %; BASO ABS # 0.01 K/uL (0-0.2); EOS % 1.6 %; HEMATOCRIT 40.3 % (42-52); HEMOGLOBIN 13.5 g/dL (14.0-18.0); IG# 0.04 K/uL (0.00-0.02); LYMPH % 5.6 %; LYMPH ABS # 0.69 K/uL (1.2-3.4); MEAN CELL VOLUME 90.2 fL (80-100); MEAN CORPUSCULAR HEMOGLOBIN 30.2 pg (25-34); MEAN CORPUSCULAR HGB CONC 33.5 g/dl (32-36); MONO % 5.9 %; MONO ABS # 0.72 K/uL (0.11-0.59); NEUT % 86.5 %; PLATELET COUNT 252 K/uL (130-400); RED CELL DISTRIBUTION WIDTH CV 13.5 % (11.5-14.5); RED CELL DISTRIBUTION WIDTH SD 44.3 fL (36.4-46.3); WHITE BLOOD COUNT 12.26 K/uL (4.8-10.8)
[2017-10-30] MEDS ORDERED: MoRPHine SULFATE 4 MG/ML 1 ML CARP\\VIAL IV STA (15:38)
[2017-10-30 15:48] LABS: ALBUMIN 3.2 gm/dl (3.4-5.0); ALT/SGPT 24 U/L (12-78); BLOOD UREA NITROGEN 32 mg/dl (7-18); CALCIUM 8.9 mg/dl (8.5-10.1); CARBON DIOXIDE 27 mmol/L (21-32); CREATININE 1.48 mg/dl (0.60-1.40); GLUCOSE 158 mg/dl (70-99); LIPASE 65 U/L (73-393); POTASSIUM 4.9 mmol/L (3.5-5.1); SODIUM 131 mmol/L (136-145)
[2017-10-30 15:53] LABS: ALKALINE PHOSPHATASE 151 U/L (45-117); AST/SGOT 14 U/L (15-37)
[2017-10-30 15:55] LABS: ISTAT CREATININE 1.5 mg/dl (0.6-1.3); ISTAT IONIZED CALCIUM 1.15 mmol/l (1.12-1.32)
--- NOTE | 2017-10-30 16:25 | DIAGNOSTIC IMAGING REPORT ---
CT ABD/PELVIS IV CONTRAST ONLY CLINICAL HISTORY: Severe diffuse abdominal pain COMPARISON STUDY: April 2006 TECHNIQUE: Following the IV administration of 115 mL of Optiray-320, CT scan of the abdomen and pelvis was performed from the lung bases to the proximal femurs. Images are reviewed in the axial, sagittal, and coronal planes. IV contrast was administered without complication. A dose lowering technique was utilized adhering to the principles of ALARA. CT DOSE: 2034.56 mGy.cm FINDINGS: Lower chest: There is a small left pleural effusion and trace right pleural effusion. There are minor dependent atelectatic changes. There are fractures of the left ninth eighth and seventh ribs. Liver: There is a stable 7 mm right lobe hypodensity. Gallbladder: Surgically absent Spleen: Normal in size and attenuation. Pancreas: Unremarkable. Adrenal glands: Unremarkable. Kidneys: There is symmetric renal cortical enhancement. The kidneys are normal in size without hydronephrosis. Bowel: There are no transition zones indicate bowel obstruction. There is colonic diverticulosis. There is mild fecal retention. There is bowel wall thickening and infiltration the pericolonic fat extending from the left transverse colon to the sigmoid. The findings are consistent with a colitis. Peritoneum: There is trace fluid in the left paracolic gutter and pelvis. No free air is visualized. Vasculature: The abdominal aorta is normal in course and caliber. Adenopathy: None. Pelvic viscera: There is minimal bladder wall thickening Skeletal structures: Postsurgical changes are present within the lumbar spine. There are fractures of the left seventh eighth and ninth ribs. IMPRESSION: 1. Fractures of the left seventh, eighth, and ninth ribs. 2. Small left pleural effusion and trace right pleural effusion 3. Bowel wall thickening and infiltration the pericolonic fat extending from the left transverse colon to the sigmoid. The findings are indicative of a colitis. 4. Fecal retention. Stool within the rectum measuring 81 mm in diameter Electronically signed by: Haresh Knox M.D. 10/30/2017 4:23 PM Dictated Date/Time: 10/30/2017 4:17 PM
--- NOTE | 2017-10-30 17:33 | DIAGNOSTIC IMAGING REPORT ---
(CHEST) THORAX WITHOUT CLINICAL HISTORY: Pleural effusion. History of trauma. Chest pain. COMPARISON STUDY: 10/27/2017 CT DOSE: 1236.95 mGy.cm TECHNIQUE: CT of the thorax was performed from the thoracic inlet to the lung bases. Images are reviewed in the axial, sagittal, and coronal planes. IV contrast was not administered for this examination. A dose lowering technique was utilized adhering to the principles of ALARA. FINDINGS: There is a left subclavian dual-chamber central venous pacemaker. Thyroid: Imaged portions of the thyroid gland are normal in appearance. Thoracic aorta: The thoracic aorta is normal in course and caliber, noting standard 3 vessel arch anatomy. Heart: The heart is normal in size and configuration, without pericardial effusion. There are coronary artery calcifications. Lungs and pleural spaces: There is a small left pleural effusion and trace right pleural effusion. There is no pneumothorax. There is no focal pulmonary consolidation. There are dependent atelectatic changes. Mediastinum: There is no mediastinal lymphadenopathy. Jennifer: Clear. Axilla: Clear. Upper abdomen: There is colonic wall thickening at the level of the splenic flexure consistent with a colitis. Skeletal structures: There are fractures of the left sixth through ninth ribs. IMPRESSION: 1. Fractures of the left sixth through ninth ribs 2. Small left pleural effusion and trace right pleural effusion 3. No evidence of pneumothorax 4. Colonic wall thickening at the level the splenic flexure consistent with a colitis Electronically signed by: Haresh Knox M.D. 10/30/2017 5:31 PM Dictated Date/Time: 10/30/2017 5:27 PM
[2017-10-30] MEDS ORDERED: ZOLPIDEM TARTRATE 5 MG TAB PO PRN (18:45)
[2017-10-30] MEDS ORDERED: ACETAMINOPHEN 325 MG TAB PO PRN (18:45)
[2017-10-30] MEDS ORDERED: ONDANSETRON INJ 2 MG/ML 2 ML VIAL IV PRN (18:45)
[2017-10-30] MEDS ORDERED: MoRPHine SULFATE 2 MG/ML CARP IV PRN (18:45)
[2017-10-30] MEDS ORDERED: POLYETHYLENE (MIRALAX) 17 GM PACK PO PRN (18:45)
[2017-10-30] MEDS ORDERED: MAGNESIUM HYDROXIDE SUSP 30 ML UDC PO PRN (18:45)
--- NOTE | 2017-10-30 18:48 | History and Physical ---
History & Physical Date & Time of Service: Oct 30, 2017 at 18:35 Chief Complaint: Hypotension/Constipated/Abd Pain Primary Care Physician: Zara Rodriguez C.R.N.P History of Present Illness Source: patient 67 y/o M Hx CAD, DM II, HTN, obese, pacemaker, lumbar stenosis - laminectomy . Presented 2 days prior after a syncopal episode where he landed on his L side and fractured rins 6-9. He was DCd from the ER the same evening. He returns with worsening rib pain and moderate to severe abdominal pain. A CT abdomen was obtained revealing fecal impaction and colitis involving the ascending colon. He has been constipated since taking narcotics following lumbar surgery. A CT chest was also obtained confirming his rib fract The pt also states that he was prescribed an inhaler for a viral URI after surgery. He was taking a dose of the inhaler when he suffered the syncopal episode 2 days ago. He denies fevers, nausea, vomiting or dysuria. He denies SOB although he has difficulty with deep breathing. Initial labs exhibit mild ULICES and anemia, although Hb has improved since surgery. Past Medical/Surgical History 1) DM II 2) Lumbar stenosis 3) HTN 4) Pacemaker 5) Obesity 6) CAD - CABG 2012 7) L4-5,L5-S1 laminectomy 10/01/17 Social History Smoking Status: Never Smoker Marital Status: Housing status: lives with family Occupational Status: employed Immunizations History of Influenza Vaccine: Yes History of Tetanus Vaccine?: Yes History of Pneumococcal: Yes History of Hepatitis B Vaccine: No Allergies Coded Allergies: No Known Allergies (Unverified , 10/27/17) Home Medications Scheduled Amoxicillin (Amoxil), 500 MG PO QID Aspirin (Aspirin Chewable), 81 MG PO DAILY Atorvastatin (Lipitor), 20 MG PO QPM Carvedilol (Coreg), 25 MG PO BID Insulin Aspart (Novolog Flexpen), 1 DOSE SQ UD Insulin Isophan/Regular (Novolin 70/30), 36 UNITS SC QAM Insulin Isophan/Regular (Novolin 70/30), 56 UNITS SC QPM Lisinopril (Zestril), 10 MG PO QAM Metformin Hcl (Glucophage), 500 MG PO BID Multiple Vitamin (Multi Vitamin Daily), 1 TAB PO QAM Polyethylene Glycol 3350 (Miralax), 17 GM PO DAILY Scheduled PRN Albuterol Hfa (Ventolin Hfa), 1-2 PUFFS INH Q4H PRN for SOB/Wheezing Fluticasone Furoate-Vilanterol (Breo Ellipta), 1 DOSE INH UD PRN for BRONCHITIS Oxycodone Immediate Rel Tab (Roxicodone Ir), 1-2 TAB PO Q4H PRN for Severe Pain Review of Systems Constitutional: No fever, No chills, No sweats Eyes: No worsening of vision ENT: No hearing loss, No unusual epistaxis, No nasal symptoms Respiratory: No cough, No sputum, No wheezing Cardiovascular: + chest pain (Chest wall pain) Abdomen: + pain, + constipation, No nausea, No vomiting Musculoskeletal: No joint pain Genitourinary - Male: No hematuria, No dysuria Neurologic: + weakness, + problem reported (Syncopal episode as above), No memory loss, No paralysis Psychiatric: No depression symptoms Endocrine: No fatigue Hematologic / Lymphatic: No abnormal bleeding/bruising Integumentary: No rash Allergic / Immunologic: No environmental allergies Physical Exam Vital Signs Date Time Temp Pulse Resp B/P (MAP) Pulse Ox O2 Delivery O2 Flow Rate FiO2 10/30/17 18:00 87 14 126/60 95 Nasal Cannula 2.0 10/30/17 17:50 89 14 97/57 93 Nasal Cannula 2.0 10/30/17 16:19 36.7 86 14 123/58 94 Room Air 3.0 10/30/17 15:15 75 18 125/60 95 Room Air 10/30/17 14:48 73 10/30/17 14:42 36.5 75 22 123/74 92 Room Air General Appearance: WD/WN, + obese Head: normocephalic Eyes: normal inspection ENT: normal ENT inspection, pharynx normal Neck: supple, no JVD Respiratory/Chest: lungs clear, normal breath sounds, + pertinent finding ( Chest tender on L) Cardiovascular: regular rate, rhythm, no edema, no gallop Abdomen/GI: + pertinent finding (Abdomen is distended and diffusely tender - bowel is hypoactive) Back: normal inspection, no CVA tenderness Extremities/Musculoskelatal: normal inspection, no calf tenderness, normal capillary refill Neurologic/Psych: 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 as tested, no motor/sensory deficits, alert, oriented x 3 Skin: normal color Diagnostics Laboratory Results Results Past 24 Hours Test 10/30/17 15:14 10/30/17 15:43 10/30/17 17:01 Range/Units White Blood Count 12.26 4.8-10.8 K/uL Red Blood Count 4.47 4.7-6.1 M/uL Hemoglobin 13.5 14.0-18.0 g/dL Hematocrit 40.3 42-52 % Mean Corpuscular Volume 90.2 80-100 fL Mean Corpuscular Hemoglobin 30.2 25-34 pg Mean Corpuscular Hemoglobin Concent 33.5 32-36 g/dl Platelet Count 252 130-400 K/uL Mean Platelet Volume 9.0 7.4-10.4 fL Neutrophils (%) (Auto) 86.5 % Lymphocytes (%) (Auto) 5.6 % Monocytes (%) (Auto) 5.9 % Eosinophils (%) (Auto) 1.6 % Basophils (%) (Auto) 0.1 % Neutrophils # (Auto) 10.60 1.4-6.5 K/uL Lymphocytes # (Auto) 0.69 1.2-3.4 K/uL Monocytes # (Auto) 0.72 0.11-0.59 K/uL Eosinophils # (Auto) 0.20 0-0.5 K/uL Basophils # (Auto) 0.01 0-0.2 K/uL RDW Standard Deviation 44.3 36.4-46.3 fL RDW Coefficient of Variation 13.5 11.5-14.5 % Immature Granulocyte % (Auto) 0.3 % Immature Granulocyte # (Auto) 0.04 0.00-0.02 K/uL Prothrombin Time 10.4 9.0-12.0 SECONDS Prothromb Time International Ratio 1.0 0.9-1.1 Sodium Level 131 136-145 mmol/L Potassium Level 4.9 3.5-5.1 mmol/L Chloride Level 98 98-107 mmol/L Carbon Dioxide Level 27 21-32 mmol/L Anion Gap 6.0 14.0 16-25 mmol/L Blood Urea Nitrogen 32 7-18 mg/dl Creatinine 1.48 0.60-1.40 mg/dl Est Creatinine Clear Calc Drug Dose 64.8 ml/min Estimated GFR () 55.2 Estimated GFR (Non- 47.6 BUN/Creatinine Ratio 21.4 10-20 Random Glucose 158 70-99 mg/dl Calcium Level 8.9 8.5-10.1 mg/dl Total Bilirubin 0.9 0.2-1 mg/dl Direct Bilirubin 0.3 0-0.2 mg/dl Aspartate Amino Transf (AST/SGOT) 14 15-37 U/L Alanine Aminotransferase (ALT/SGPT) 24 12-78 U/L Alkaline Phosphatase 151 45-117 U/L Troponin I < 0.015 0-0.045 ng/ml Total Protein 7.0 6.4-8.2 gm/dl Albumin 3.2 3.4-5.0 gm/dl Lipase 65 73-393 U/L Bedside Hemoglobin 13.6 14.0-18.0 g/dl Bedside Hematocrit 40 42-52 % Bedside Sodium 133 135-144 mEq/L Bedside Potassium 5.0 3.3-5.0 mEq/L Bedside Chloride 98 101-112 mEq/L Bedside Total CO2 27 24-31 mEq/l Bedside Blood Urea Nitrogen 31 7-18 mg/dl Bedside Creatinine 1.5 0.6-1.3 mg/dl Bedside Glucose (other) 165 70-99 mg/dl Bedside Ionized Calcium (Benjamín) 1.15 1.12-1.32 mmol/l Lactic Acid Level 2.0 0.4-2.0 mmol/L Diagnostic Radiology CT chest: 1. Fractures of the left sixth through ninth ribs 2. Small left pleural effusion and trace right pleural effusion 3. No evidence of pneumothorax 4. Colonic wall thickening at the level the splenic flexure consistent with a colitis CT abdomen: 1. Fractures of the left seventh, eighth, and ninth ribs 2. Small left pleural effusion and trace right pleural effusion 3. Bowel wall thickening and infiltration the pericolonic fat extending from the left transverse colon to the sigmoid. The findings are indicative of a colitis. 4. Fecal retention. Stool within the rectum measuring 81 mm in diameter EKG AV pacing - no acute change from previous Impression Assessment and Plan 67 y/o M Hx CAD, DM II, HTN, obese, pacemaker, lumbar stenosis - laminectomy . Presented 2 days prior after a syncopal episode where he landed on his L side and fractured rins 6-9. He was DCd from the ER the same evening. He returns with worsening rib pain and moderate to severe abdominal pain. A CT abdomen was obtained revealing fecal impaction and colitis involving the ascending colon. He has been constipated since taking narcotics following lumbar surgery. A CT chest was also obtained confirming his rib fract The pt also states that he was prescribed an inhaler for a viral URI after surgery. He was taking a dose of the inhaler when he suffered the syncopal episode 2 days ago. He denies fevers, nausea, vomiting or dysuria. He denies SOB although he has difficulty with deep breathing. Initial labs exhibit mild ULICES and anemia, although Hb has improved since surgery. 1) Severe abdominal pain - colitis and fecal impaction. The colitis involves the ascending colon which may be unusual for stercoral colitis, however, he has not had diarrhea or fevers to support infectious colitis. We will treat his impaction with Milk and Molasses and start him on Colace, Miralax and Dulcolax. He is placed on clears. If he does not have a bowel movement or if his pain persists following, we may need to consult GI. The pt will unfortunately likely need to continue narcotics due to extensive rib fractures. 2) ULICES - likely prerenal - IVF provided - will recheck BMP AM 3) Syncopal episode - occurred 3 days prior - we will monitor on telemetry overnight - would not pursue further workup at present unless arrhythmias are noted. 4) DM II - placed on SS 5) CAD - no evidence of ACS - cont ASA, Statin 6) HTN - Lisinopril held for ULICES - resume AM if resolved Full code - Heparin prophylaxis Total time for this admit including review of labs, meds, records, EKG - discussion with pt and ER attending - 38 min Resuscitation Status VTE Prophylaxis Will order VTE Prophylaxis: Yes
[2017-10-30] MEDS: ALUMINUM/MAGNESIUM/SIMETH (MAALOX MAX) 30 ML UDC PO PRN ×2 (19:29→23:22)
[2017-10-30] MEDS ORDERED: DEXTROSE 50% 50 ML SYR IV PRN (20:15)
[2017-10-30] MEDS ORDERED: GLUCOSE 40% GEL 15 GM TUBE PO PRN (20:15)
[2017-10-30] MEDS ORDERED: GLUCOSE 10 TABS/TUBE PO PRN (20:15)
[2017-10-30] MEDS ORDERED: GLUCAGON FOR INJ 1 MG VIAL SQ PRN (20:15)
--- NOTE | 2017-10-30 20:51 | EMERGENCY ROOM VISIT NOTE ---
History Report prepared by Lam: Nino Costa Under the Supervision of: Dr. Wilmar Viveros D.O. First contact with patient: 14:39 Stated Complaint: HYPOTENSION/CONSTIPATED/ABD PAIN History of Present Illness The patient is a 67 year old male who presents to the Emergency Room with complaints of constant abdominal pain that began this morning, a few hours prior to arrival. He describes his pain as "someone sitting on his abdomen" with intermittent "sharp" pains. The patient did also vomit this morning. He notes that his last bowel movement was on Thursday, 3 days ago. The patient was in the Emergency Department on Thursday, three days ago following a syncopal episode. The patient had a CT scan of the chest/abdomen performed. The radiologist was unable to tell if any of the ribs were broken. He has had both an appendectomy and cholecystectomy in the past. The patient denies any other headache, change in vision, fevers, chest pain, shortness of breath, nausea, diarrhea, pain with urination, and melena. 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 A total of 10 systems reviewed and were otherwise negative. Past Medical & Surgical Medical Problems: (1) Colitis (2) Lumbar stenosis (3) Syncope Hx of Appendectomy. Hx of Cholecystectomy Family History omitted secondary to age. Social History Smoking Status: Never Smoker Marital Status: Occupation Status: employed Current/Historical Medications Scheduled Amoxicillin (Amoxil), 500 MG PO QID Aspirin (Aspirin Chewable), 81 MG PO DAILY Atorvastatin (Lipitor), 20 MG PO QPM Carvedilol (Coreg), 25 MG PO BID Insulin Aspart (Novolog Flexpen), 1 DOSE SQ UD Insulin Isophan/Regular (Novolin 70/30), 36 UNITS SC QAM Insulin Isophan/Regular (Novolin 70/30), 56 UNITS SC QPM Lisinopril (Zestril), 10 MG PO QAM Metformin Hcl (Glucophage), 500 MG PO BID Multiple Vitamin (Multi Vitamin Daily), 1 TAB PO QAM Polyethylene Glycol 3350 (Miralax), 17 GM PO DAILY Scheduled PRN Albuterol Hfa (Ventolin Hfa), 1-2 PUFFS INH Q4H PRN for SOB/Wheezing Fluticasone Furoate-Vilanterol (Breo Ellipta), 1 DOSE INH UD PRN for BRONCHITIS Oxycodone Immediate Rel Tab (Roxicodone Ir), 1-2 TAB PO Q4H PRN for Severe Pain Allergies Coded Allergies: No Known Allergies (Unverified , 10/27/17) Physical Exam Vital Signs Date Time Temp Pulse Resp B/P (MAP) Pulse Ox O2 Delivery O2 Flow Rate FiO2 10/30/17 18:00 87 14 126/60 95 Nasal Cannula 2.0 10/30/17 17:50 89 14 97/57 93 Nasal Cannula 2.0 10/30/17 16:19 36.7 86 14 123/58 94 Room Air 3.0 10/30/17 15:15 75 18 125/60 95 Room Air 10/30/17 14:48 73 10/30/17 14:42 36.5 75 22 123/74 92 Room Air Physical Exam GENERAL: Laying in bed, alert, in moderate distress, holding abdomen. EYE EXAM: normal conjunctiva. OROPHARYNX: no exudate, no erythema, lips, buccal mucosa, and tongue normal and mucous membranes are moist NECK: supple, no nuchal rigidity, no adenopathy, non-tender CHEST: There is acute reproducible tenderness on palpation to the left chest wall. LUNGS: Clear to auscultation. Normal chest wall mechanics HEART: no murmurs, S1 normal and S2 normal ABDOMEN: abdomen soft, with diffuse tenderness. Tenderness is most pronounced in the left lower quadrant. Abdomen is slightly distended, diminished bowel sounds, no masses, no rebound or guarding. BACK: Back is symmetrical on inspection and there is no deformity, no midline tenderness, no CVA tenderness. SKIN: no rashes and no bruising UPPER EXTREMITIES: upper extremities are grossly normal. LOWER EXTREMITIES: No pitting edema. Calves are equal bilaterally. NEURO EXAM: Normal sensorium, cranial nerves II-XII grossly intact, normal speech, no gross weakness of arms, no gross weakness of legs. Medical Decision & Procedures ER Provider Diagnostic Interpretation: Radiology results as stated below per my review and the radiologist's interpretation: (CHEST) THORAX WITHOUT CLINICAL HISTORY: Pleural effusion. History of trauma. Chest pain. COMPARISON STUDY: 10/27/2017 CT DOSE: 1236.95 mGy.cm TECHNIQUE: CT of the thorax was performed from the thoracic inlet to the lung bases. Images are reviewed in the axial, sagittal, and coronal planes. IV contrast was not administered for this examination. A dose lowering technique was utilized adhering to the principles of ALARA. FINDINGS: There is a left subclavian dual-chamber central venous pacemaker. Thyroid: Imaged portions of the thyroid gland are normal in appearance. Thoracic aorta: The thoracic aorta is normal in course and caliber, noting standard 3 vessel arch anatomy. Heart: The heart is normal in size and configuration, without pericardial effusion. There are coronary artery calcifications. Lungs and pleural spaces: There is a small left pleural effusion and trace right pleural effusion. There is no pneumothorax. There is no focal pulmonary consolidation. There are dependent atelectatic changes. Mediastinum: There is no mediastinal lymphadenopathy. Jennifer: Clear. Axilla: Clear. Upper abdomen: There is colonic wall thickening at the level of the splenic flexure consistent with a colitis. Skeletal structures: There are fractures of the left sixth through ninth ribs. IMPRESSION: 1. Fractures of the left sixth through ninth ribs 2. Small left pleural effusion and trace right pleural effusion 3. No evidence of pneumothorax 4. Colonic wall thickening at the level the splenic flexure consistent with a colitis Electronically signed by: Haresh Knox M.D. 10/30/2017 5:31 PM Dictated Date/Time: 10/30/2017 5:[address] ABD/PELVIS IV CONTRAST ONLY CLINICAL HISTORY: Severe diffuse abdominal pain COMPARISON STUDY: April 2006 TECHNIQUE: Following the IV administration of 115 mL of Optiray-320, CT scan of the abdomen and pelvis was performed from the lung bases to the proximal femurs. Images are reviewed in the axial, sagittal, and coronal planes. IV contrast was administered without complication. A dose lowering technique was utilized adhering to the principles of ALARA. CT DOSE: 2034.56 mGy.cm FINDINGS: Lower chest: There is a small left pleural effusion and trace right pleural effusion. There are minor dependent atelectatic changes. There are fractures of the left ninth eighth and seventh ribs. Liver: There is a stable 7 mm right lobe hypodensity. Gallbladder: Surgically absent Spleen: Normal in size and attenuation. Pancreas: Unremarkable. Adrenal glands: Unremarkable. Kidneys: There is symmetric renal cortical enhancement. The kidneys are normal in size without hydronephrosis. Bowel: There are no transition zones indicate bowel obstruction. There is colonic diverticulosis. There is mild fecal retention. There is bowel wall thickening and infiltration the pericolonic fat extending from the left transverse colon to the sigmoid. The findings are consistent with a colitis. Peritoneum: There is trace fluid in the left paracolic gutter and pelvis. No free air is visualized. Vasculature: The abdominal aorta is normal in course and caliber. Adenopathy: None. Pelvic viscera: There is minimal bladder wall thickening Skeletal structures: Postsurgical changes are present within the lumbar spine. There are fractures of the left seventh eighth and ninth ribs. IMPRESSION: 1. Fractures of the left seventh, eighth, and ninth ribs. 2. Small left pleural effusion and trace right pleural effusion 3. Bowel wall thickening and infiltration the pericolonic fat extending from the left transverse colon to the sigmoid. The findings are indicative of a colitis. 4. Fecal retention. Stool within the rectum measuring 81 mm in diameter Electronically signed by: Haresh Knox M.D. 10/30/2017 4:23 PM Dictated Date/Time: 10/30/2017 4:17 PM CHEST ONE VIEW PORTABLE HISTORY: 67 years-old Male cp acute atypical chest pain COMPARISON: Chest radiographs 10/20/2017, CTA chest 10/27/2017 TECHNIQUE: Semierect AP view of the chest FINDINGS: Cardiomediastinal and hilar silhouettes are within normal limits. Prior median sternotomy and CABG. Left subclavian pacer is noted with leads appearing to be intact. There is no pneumothorax, pleural effusion, focal airspace consolidation or overt pulmonary edema. Acute minimally displaced fracture of the posterior left eighth rib is noted with additional fractures of the left ribs better seen on CT chest 10/27/2017. Left shoulder arthroplasty. IMPRESSION: 1. No acute process of the chest. 2. Acute minimally displaced fracture of the posterior left eighth rib with additional acute left-sided rib fractures better seen on CT chest 10/27/2017. No pneumothorax identified. The above report was generated using voice recognition software. It may contain grammatical, syntax or spelling errors. Electronically signed by: Chele Gaitan M.D. 10/30/2017 3:19 PM Dictated Date/Time: 10/30/2017 3:15 PM Laboratory Results 10/30/17 15:14 Red Blood Count 4.47, Mean Corpuscular Volume 90.2, Mean Corpuscular Hemoglobin 30.2, Mean Corpuscular Hemoglobin Concent 33.5, Mean Platelet Volume 9.0, Neutrophils (%) (Auto) 86.5, Lymphocytes (%) (Auto) 5.6, Monocytes (%) (Auto) 5.9, Eosinophils (%) (Auto) 1.6, Basophils (%) (Auto) 0.1, Neutrophils # (Auto) 10.60, Lymphocytes # (Auto) 0.69, Monocytes # (Auto) 0.72, Eosinophils # (Auto) 0.20, Basophils # (Auto) 0.01 10/30/17 15:14 Test 10/30/17 15:14 10/30/17 15:43 10/30/17 17:01 White Blood Count 12.26 K/uL (4.8-10.8) Red Blood Count 4.47 M/uL (4.7-6.1) Hemoglobin 13.5 g/dL (14.0-18.0) Hematocrit 40.3 % (42-52) Mean Corpuscular Volume 90.2 fL (80-100) Mean Corpuscular Hemoglobin 30.2 pg (25-34) Mean Corpuscular Hemoglobin Concent 33.5 g/dl (32-36) Platelet Count 252 K/uL (130-400) Mean Platelet Volume 9.0 fL (7.4-10.4) Neutrophils (%) (Auto) 86.5 % Lymphocytes (%) (Auto) 5.6 % Monocytes (%) (Auto) 5.9 % Eosinophils (%) (Auto) 1.6 % Basophils (%) (Auto) 0.1 % Neutrophils # (Auto) 10.60 K/uL (1.4-6.5) Lymphocytes # (Auto) 0.69 K/uL (1.2-3.4) Monocytes # (Auto) 0.72 K/uL (0.11-0.59) Eosinophils # (Auto) 0.20 K/uL (0-0.5) Basophils # (Auto) 0.01 K/uL (0-0.2) RDW Standard Deviation 44.3 fL (36.4-46.3) RDW Coefficient of Variation 13.5 % (11.5-14.5) Immature Granulocyte % (Auto) 0.3 % Immature Granulocyte # (Auto) 0.04 K/uL (0.00-0.02) Prothrombin Time 10.4 SECONDS (9.0-12.0) Prothromb Time International Ratio 1.0 (0.9-1.1) Est Creatinine Clear Calc Drug Dose 64.8 ml/min Estimated GFR () 55.2 Estimated GFR (Non- 47.6 BUN/Creatinine Ratio 21.4 (10-20) Calcium Level 8.9 mg/dl (8.5-10.1) Total Bilirubin 0.9 mg/dl (0.2-1) Direct Bilirubin 0.3 mg/dl (0-0.2) Aspartate Amino Transf (AST/SGOT) 14 U/L (15-37) Alanine Aminotransferase (ALT/SGPT) 24 U/L (12-78) Alkaline Phosphatase 151 U/L (45-117) Troponin I < 0.015 ng/ml (0-0.045) Total Protein 7.0 gm/dl (6.4-8.2) Albumin 3.2 gm/dl (3.4-5.0) Lipase 65 U/L (73-393) Bedside Hemoglobin 13.6 g/dl (14.0-18.0) Bedside Hematocrit 40 % (42-52) Bedside Sodium 133 mEq/L (135-144) Bedside Potassium 5.0 mEq/L (3.3-5.0) Bedside Chloride 98 mEq/L (101-112) Bedside Total CO2 27 mEq/l (24-31) Anion Gap 14.0 mmol/L (16-25) Bedside Blood Urea Nitrogen 31 mg/dl (7-18) Bedside Creatinine 1.5 mg/dl (0.6-1.3) Bedside Glucose (other) 165 mg/dl (70-99) Bedside Ionized Calcium (Benjamín) 1.15 mmol/l (1.12-1.32) Lactic Acid Level 2.0 mmol/L (0.4-2.0) Laboratory results per my review. Medications Administered Medications (Trade) Dose Ordered Sig/Gaby Route Start Time Stop Time Status Last Admin Dose Admin Sodium Chloride 1,000 ml @ 999 mls/hr Q1H1M STAT IV 10/30/17 14:46 10/30/17 15:46 DC 10/30/17 14:59 999 MLS/HR Morphine Sulfate (MoRPHine SULFATE INJ) 6 mg NOW STAT IV 10/30/17 14:46 10/30/17 14:48 DC 10/30/17 14:58 6 MG Ondansetron HCl (Zofran Inj) 4 mg NOW STAT IV 10/30/17 14:46 10/30/17 14:48 DC 10/30/17 14:58 4 MG Al Hydrox/Mg Hydrox/Simethicone (Maalox Max Susp) 15 ml Q4H PRN PO 10/30/17 18:45 11/29/17 18:44 10/30/17 19:29 15 ML ECG Per My Interpretation Indication: abdominal pain Rate (beats per minute): 78 Rhythm: other (Atrially Sensed, Ventricularly paced rhythm) Findings: nonspecific-ST abn (Lateral), ST depression (Inferior), T-wave inversion (Inferior), paced rhythm Comparison ECG Date: 10/27/2017 Change: T-wave inversions and ST abnormality are new. ED Course ED COURSE: Vital signs were reviewed and showed normal vitals. The patients medical record was reviewed The above diagnostic studies were performed and reviewed. ED treatments and interventions as stated above. 1439: The patient was evaluated in room C3. A complete history and physical examination was performed. 1446: Ordered Zofran 4 mg IV, Morphine Sulfate 6 mg IV, Sodium Chloride 1000 mL @ 999 mL/hr IV. 1520: I checked on the patient at this time. He just got his blood work completed. 1538: Ordered Morphine Sulfate 4 mg IV. 1623: I updated the patient at this time. He is doing well. 1754: I discussed the case with Gibran Rivers - Thoracic Surgery [facility]. He states that Dr. Boone is out of town currently, but he will consult. He states that the patient does not need any intervention right now. 1800: I discussed the case with Dr. Dalton Rene - [facility] [place] [facility] [place]. He will evaluate the patient for further treatment. 1801: Ordered Sodium Chloride 1000 mL @ 999 mL/hr IV. 1805: Upon reevaluation, the patient is resting in bed.I discussed my findings with the patient and he understands and agrees with the treatment plan. Based on the patients age, coexisting illnesses, exam and lab findings the decision to treat as an inpatient was made. The patient remained stable while under my care. The patient will be evaluated for further management. Medical Decision Differential diagnoses includes but is not limited to gastritis, peptic ulcer disease, GERD, gallbladder disease, pancreatitis, small bowel obstruction, acute coronary syndrome, pericarditis, ischemic bowel, irritable bowel disease, irritable bowel syndrome, appendicitis, diverticulitis, malignancy, hernia, urinary tract infection, torsion, perforation, trauma, infectious. Patient is a 67-year-old male who presents the ER for diffuse severe abdominal pain. Recently here 3 days ago and was discharged following a syncopal episode with left chest wall pain. CT showed no obvious fractures. CT of the chest and abdomen today show for left-sided rib fractures with bilateral small pleural effusions and a significant colitis. He also has a large amount of constipation. He was given 2 IV doses of narcotics on the ER. He was slightly hypotensive. He was given 2 L normal saline. Lactate was 2 following 2 L normal saline. He had 2 bowel movements while in the ER. Favor this is unlikely ischemia secondary to lactate which cleared following fluids. EKG did show new flipped T waves in the inferior leads compared to all. Patient was updated at bedside. He has been laying in bed and has not been able to get up and move around. Discuss with been from thoracic. He can consult if needed tomorrow morning by internal medicine for the rib fractures. With all these comorbidities I felt was reasonable to admit him to internal medicine for further workup. Medication Reconcilliation Current Medication List: was personally reviewed by me Blood Pressure Screening Patient's blood pressure: Normal blood pressure Consults Time Called: 175 Consulting Physician: [facility] PAEleanorC Returned Call: 175 I discussed the case with [facility] PAEleanorC. He states that Dr. Boone is out of town currently, but he will consult. He states that the patient does not need any intervention right now. Additional Consults: Time Called: 175 Consulted Physician: Dr. Dalton Webster [facility] [place] [place] Hospitalist Returned Call: [phone] Additional Comments: I discussed the case with Dr. Dalton OLGUIN Hospitalist. He will evaluate the patient for further treatment. Impression Primary Impression: Multiple rib fractures Additional Impressions: Colitis Abdominal pain Scribe Attestation The scribe's documentation has been prepared under my direction and personally reviewed by me in its entirety. I confirm that the note above accurately reflects all work, treatment, procedures, and medical decision making performed by me. Departure Information Dispostion Being Evaluated By Hospitalist Referrals Zara Rodriguez C.R.N.P (PCP) Problem Qualifiers Primary Impression: Multiple rib fractures Encounter type: initial encounter Fracture type: closed Laterality: left Qualified Codes: S22.42XA - Multiple fractures of ribs, left side, initial encounter for closed fracture Additional Impressions: Abdominal pain Abdominal location: unspecified location Qualified Codes: R10.9 - Unspecified abdominal pain
[2017-10-30 20:52] VITALS: BP 126/60; PULSE 88; TEMP 36.7; Ht 185.4 cm; Wt 123.0 kg
[2017-10-30] MEDS ORDERED: MILK AND MOLASSES ENEMA PR ONE (21:00)
[2017-10-30] MEDS: ATORVASTATIN 20 MG TAB PO SCH (21:29)
[2017-10-30] MEDS: CARVEDILOL 25 MG TAB PO SCH (21:29)
[2017-10-30] MEDS: DOCUSATE SODIUM 100 MG CAP PO SCH (21:29)
[2017-10-30] MEDS: OXYCODONE HCL IR 5 MG TAB (IMMEDIATE RELEASE) PO PRN (21:31)
[2017-10-30] MEDS: INSULIN ASPART 100 UNITS/ML 3 ML PEN SC SCH (21:39)
[2017-10-30 23:27] VITALS: BP 91/47; PULSE 101; TEMP 37.3; O2SAT 94
[2017-10-31] VITALS (13 sets, daily range): BP systolic 78–138; BP diastolic 46–76; PULSE 80–98; TEMP 36.2–37; O2SAT 91–95
[2017-10-31] MEDS: ALUMINUM/MAGNESIUM/SIMETH (MAALOX MAX) 30 ML UDC PO PRN ×2 (05:21→23:30)
[2017-10-31] MEDS ORDERED: GI COCKTAIL PO PRN (08:30)
[2017-10-31] MEDS ORDERED: ALUMINUM/MAGNESIUM SUSP 18 ML, LIDOCAINE HCL 2% VISCOUS SOLN 6 ML, BARCODE IDENTIFIER 1 EA PO PRN ×2 (08:45)
[2017-10-31] MEDS ORDERED: LISINOPRIL 10 MG TAB PO SCH (09:00)
[2017-10-31] MEDS ORDERED: BISACODYL 10 MG SUPP PR SCH (09:00)
[2017-10-31] MEDS: POLYETHYLENE (MIRALAX) 17 GM PACK PO SCH (09:02)
[2017-10-31] MEDS: DOCUSATE SODIUM 100 MG CAP PO SCH ×2 (09:02→20:56)
[2017-10-31] MEDS: OXYCODONE HCL IR 5 MG TAB (IMMEDIATE RELEASE) PO PRN (09:02)
[2017-10-31] MEDS: CARVEDILOL 25 MG TAB PO SCH ×2 (09:02→20:57)
[2017-10-31] MEDS: ASPIRIN 81 MG ECTAB PO SCH (09:07)
[2017-10-31] MEDS: INSULIN ASPART 100 UNITS/ML 3 ML PEN SC SCH ×4 (09:07→20:59)
[2017-10-31 09:43] LABS: HEMATOCRIT 39.3 % (42-52); HEMOGLOBIN 12.7 g/dL (14.0-18.0); MEAN CELL VOLUME 88.9 fL (80-100); MEAN CORPUSCULAR HEMOGLOBIN 28.7 pg (25-34); MEAN CORPUSCULAR HGB CONC 32.3 g/dl (32-36); MEAN PLATELET VOLUME 9.8 fL (7.4-10.4); PLATELET COUNT 260 K/uL (130-400); RED CELL DISTRIBUTION WIDTH CV 13.8 % (11.5-14.5); RED CELL DISTRIBUTION WIDTH SD 44.7 fL (36.4-46.3); WHITE BLOOD COUNT 12.97 K/uL (4.8-10.8)
[2017-10-31 10:12] LABS: CALCIUM 8.7 mg/dl (8.5-10.1); CREATININE 1.93 mg/dl (0.60-1.40)
[2017-10-31] MEDS ORDERED: OXYCODONE HCL IR 5 MG TAB (IMMEDIATE RELEASE) PO PRN (12:15)
--- NOTE | 2017-10-31 12:23 | Hospitalist Progress Note ---
Hospitalist Progress Note Date of Service Oct 31, 2017. (Tanisha Pantoja ., YESSENIAC) Subjective Pt evaluation today including: conversation w/ patient, physical exam, chart review, lab review, review of inpatient medication list Pain: None PO Intake: Tolerating clears Voiding: no voiding problems Patient reports feeling "spacey" from his pain medicine. He states that it has completely alleviated his pain, but it is stronger than what he was taking at home. He also reports feeling generally weak and fatigued. He states he has moved his bowels twice so far this morning and reports he had watery diarrhea. His abdominal pain is much improved, currently a 4/10 crampy pain in the LLQ. He is tolerated a clear liquid diet. The patient denies fevers, chills, sweats , chest pain, palpitations, claudication, cough, wheezing, shortness of breath, nausea, vomiting, dysuria, hematuria, urinary retention, paralysis, focal motor weakness, numbness and tingling. Additional Comments: See HPI for pertinent positives and negatives. All other systems reviewed and negative. (Tanisha Pantoja ., ERIN-C) Objective Vital Signs Date Time Temp Pulse Resp B/P (MAP) Pulse Ox O2 Delivery O2 Flow Rate FiO2 10/31/17 12:00 94 Room Air 10/31/17 11:39 80 18 78/46 (57) 10/31/17 11:26 36.3 84 16 79/50 (60) 93 83/51 (62) 10/31/17 08:00 94 Room Air 10/31/17 07:13 36.2 95 16 136/75 (95) 95 1.0 10/31/17 05:34 138/76 (96) 10/31/17 04:15 37.0 98 18 86/50 (62) 95 10/31/17 04:00 Room Air 10/31/17 00:00 Room Air 10/30/17 23:27 37.3 101 16 91/47 (62) 94 Nasal Cannula 2.0 10/30/17 20:52 36.7 88 14 126/60 Nasal Cannula 2.0 10/30/17 18:00 87 14 126/60 95 Nasal Cannula 2.0 10/30/17 17:50 89 14 97/57 93 Nasal Cannula 2.0 10/30/17 16:19 36.7 86 14 123/58 94 Room Air 3.0 10/30/17 15:15 75 18 125/60 95 Room Air 10/30/17 14:48 73 10/30/17 14:42 36.5 75 22 123/74 92 Room Air (Tanisha Pantoja ., PA-C) Physical Exam Notes: General appearance: +Obese. Well-developed, well-nourished, no apparent distress Head: Normocephalic, atraumatic Eyes: Normal inspection, PERRL, EOMI ENT: Normal ENT inspection, hearing grossly normal, pharynx normal Neck: Supple, no JVD, trachea midline Respiratory/Chest: +Poor respiratory effort due to rib pain. Decreased breath sounds. Lungs clear to auscultation, no respiratory distress Cardiovascular: Regular rate & rhythm, no gallop, no murmur Abdomen/GI: +Diffusely TTP, most marked in LLQ. Normal bowel sounds, soft Extremities/Musculoskeletal: Normal inspection, no calf tenderness, no pedal edema Neurological/Psych: Alert, normal mood/affect, oriented x 3 Skin: Normal color, warm/dry, no rash (Tanisha Pantoja ., PA-C) Laboratory Results Last 24 Hours Test 10/30/17 15:14 10/30/17 15:43 10/30/17 17:01 10/30/17 20:56 White Blood Count 12.26 K/uL Red Blood Count 4.47 M/uL Hemoglobin 13.5 g/dL Hematocrit 40.3 % Mean Corpuscular Volume 90.2 fL Mean Corpuscular Hemoglobin 30.2 pg Mean Corpuscular Hemoglobin Concent 33.5 g/dl Platelet Count 252 K/uL Mean Platelet Volume 9.0 fL Neutrophils (%) (Auto) 86.5 % Lymphocytes (%) (Auto) 5.6 % Monocytes (%) (Auto) 5.9 % Eosinophils (%) (Auto) 1.6 % Basophils (%) (Auto) 0.1 % Neutrophils # (Auto) 10.60 K/uL Lymphocytes # (Auto) 0.69 K/uL Monocytes # (Auto) 0.72 K/uL Eosinophils # (Auto) 0.20 K/uL Basophils # (Auto) 0.01 K/uL RDW Standard Deviation 44.3 fL RDW Coefficient of Variation 13.5 % Immature Granulocyte % (Auto) 0.3 % Immature Granulocyte # (Auto) 0.04 K/uL Prothrombin Time 10.4 SECONDS Prothromb Time International Ratio 1.0 Sodium Level 131 mmol/L Potassium Level 4.9 mmol/L Chloride Level 98 mmol/L Carbon Dioxide Level 27 mmol/L Anion Gap 6.0 mmol/L 14.0 mmol/L Blood Urea Nitrogen 32 mg/dl Creatinine 1.48 mg/dl Est Creatinine Clear Calc Drug Dose 64.8 ml/min Estimated GFR () 55.2 Estimated GFR (Non- 47.6 BUN/Creatinine Ratio 21.4 Random Glucose 158 mg/dl Calcium Level 8.9 mg/dl Total Bilirubin 0.9 mg/dl Direct Bilirubin 0.3 mg/dl Aspartate Amino Transf (AST/SGOT) 14 U/L Alanine Aminotransferase (ALT/SGPT) 24 U/L Alkaline Phosphatase 151 U/L Troponin I < 0.015 ng/ml Total Protein 7.0 gm/dl Albumin 3.2 gm/dl Lipase 65 U/L Bedside Hemoglobin 13.6 g/dl Bedside Hematocrit 40 % Bedside Sodium 133 mEq/L Bedside Potassium 5.0 mEq/L Bedside Chloride 98 mEq/L Bedside Total CO2 27 mEq/l Bedside Blood Urea Nitrogen 31 mg/dl Bedside Creatinine 1.5 mg/dl Bedside Glucose (other) 165 mg/dl Bedside Ionized Calcium (Benjamín) 1.15 mmol/l Lactic Acid Level 2.0 mmol/L Bedside Glucose 198 mg/dl Test 10/31/17 07:52 10/31/17 09:15 10/31/17 11:37 Bedside Glucose 241 mg/dl 275 mg/dl White Blood Count 12.97 K/uL Red Blood Count 4.42 M/uL Hemoglobin 12.7 g/dL Hematocrit 39.3 % Mean Corpuscular Volume 88.9 fL Mean Corpuscular Hemoglobin 28.7 pg Mean Corpuscular Hemoglobin Concent 32.3 g/dl RDW Standard Deviation 44.7 fL RDW Coefficient of Variation 13.8 % Platelet Count 260 K/uL Mean Platelet Volume 9.8 fL Sodium Level 127 mmol/L Potassium Level 5.0 mmol/L Chloride Level 96 mmol/L Carbon Dioxide Level 22 mmol/L Anion Gap 10.0 mmol/L Blood Urea Nitrogen 50 mg/dl Creatinine 1.93 mg/dl Est Creatinine Clear Calc Drug Dose 49.7 ml/min Estimated GFR () 40.0 Estimated GFR (Non- 34.5 BUN/Creatinine Ratio 25.9 Random Glucose 279 mg/dl Calcium Level 8.7 mg/dl (Tanisha Pantoja PA-C) Assessment and Plan 67 y/o male with a history of CAD s/p CABG x 3, HTN, HLD, cardiomyopathy, complete heart block s/p bi-ventricular pacer, DM II and GERD who presented with abdominal pain. CT abdomen/pelvis consistent with fecal retention and colitis Abdominal pain, fecal retention, colitis--improving -Leukocytosis stable at 12K, afebrile, no bloody diarrhea -Pt now moving bowels, abdominal pain improved -Continue Colace, scheduled Miralax, prn milk of molasses -Can d/c scheduled DulcoLax, pt with 5 BMs today so far -Advance to full liquid diet ULICES--worsening -Baseline creatinine 0.9-1.0 -Creatinine 1.93 on 10/31, up from 1.48 on admission -Start NSS at 75 cc/hr. Has adequate PO intake Hypotension--ongoing, does have intermittent normal pressures -IVF as above -Continue to hold lisinopril Recent syncope--stable, no further recurrence -Admitted to telemetry. No acute events overnight. Pt paced, HR 80s-90s CAD, s/p CABG, HTN, HLD, cardiomyopathy, complete heart block s/p pacer--stable except BP as above -Continue Coreg 25 mg PO BID w/hold parameters: hold if SBP less than 100 or HR less than 60 -Continue ASA, Lipitor 20 mg PO hs -Lisinopril on hold due to ULICES DM II--HgbA1c 7.3 on 09/07 -Hold 70/30 -Insulin sliding scale -Check BSGs q ac and qhs GERD -Protonix 40 mg PO qd Recent L4-L5, L5-S1 laminectomy -Decrease oxycodone to 5 mg PO q4h prn pain. Pt states 10 mg making him "spacey " and is more than he takes at home Code Status -Level I, FULL RESUSCITATION STATUS (Tanisha Pantoja, ROYA) Reviewed: Pt Seen/Exam by Me (Brii Hong, ) History Pt denies further indigestion. This is an ongoing issue for him and he takes prilosec PRN for this. HypoTN episodes, however pt is asx with this. Otherwise no new concerns. Toleratng PO without issue. Denies chest pain, SOB. Agree with HPI/ROS as noted by PA (Brii Hong, DO) General Appearance: WD/WN, no apparent distress Eye Exam: bilateral eye normal inspection, bilateral eye other (nml slcera) Respiratory: normal breath sounds, no respiratory distress Cardiovascular: normal peripheral pulses, regular rate, rhythm Gastrointestinal: non tender, soft Extremities: non-tender, no pedal edema Neurologic/Psychiatric: alert, normal mood/affect, oriented x 3 Skin Characteristics: normal color, warm/dry (Brii Hong, DO) Assessment/Plan Agree with plan as outlined above Asx hypoTN, monitor Add IVF ULICES, monitor with IVF Did pass some stool, abd is improving (Brii Hong, DO)
[2017-10-31] MEDS: SODIUM CHLORIDE 0.9% 1000ML 1,000 ML IV SCH (13:16)
[2017-10-31] MEDS: ATORVASTATIN 20 MG TAB PO SCH (20:57)
[2017-11-01] VITALS (7 sets, daily range): BP systolic 94–124; BP diastolic 48–68; PULSE 79–85; TEMP 36.4–37.4; O2SAT 91–92
[2017-11-01 06:02] LABS: HEMATOCRIT 31.7 % (42-52); HEMOGLOBIN 10.6 g/dL (14.0-18.0); MEAN CELL VOLUME 88.3 fL (80-100); MEAN CORPUSCULAR HEMOGLOBIN 29.5 pg (25-34); MEAN CORPUSCULAR HGB CONC 33.4 g/dl (32-36); MEAN PLATELET VOLUME 9.1 fL (7.4-10.4); PLATELET COUNT 186 K/uL (130-400); RED CELL DISTRIBUTION WIDTH CV 13.9 % (11.5-14.5); RED CELL DISTRIBUTION WIDTH SD 45.3 fL (36.4-46.3); WHITE BLOOD COUNT 9.91 K/uL (4.8-10.8)
[2017-11-01 06:38] LABS: CALCIUM 8.1 mg/dl (8.5-10.1); CREATININE 3.05 mg/dl (0.60-1.40); POTASSIUM 5.2 mmol/L (3.5-5.1)
[2017-11-01] MEDS: SODIUM CHLORIDE 0.9% 1000ML 1,000 ML IV SCH ×3 (08:04→15:41)
[2017-11-01] MEDS: PANTOprazole SOD 40 MG TAB PO SCH (08:07)
[2017-11-01] MEDS: ASPIRIN 81 MG ECTAB PO SCH (08:35)
[2017-11-01] MEDS: CARVEDILOL 25 MG TAB PO SCH ×2 (08:35→21:00)
[2017-11-01] MEDS: DOCUSATE SODIUM 100 MG CAP PO SCH ×2 (08:36→21:18)
[2017-11-01] MEDS: POLYETHYLENE (MIRALAX) 17 GM PACK PO SCH (08:47)
[2017-11-01] MEDS: INSULIN ASPART 100 UNITS/ML 3 ML PEN SC SCH ×4 (08:47→21:21)
--- NOTE | 2017-11-01 10:00 | Hospitalist Progress Note ---
Hospitalist Progress Note Date of Service Nov 01, 2017. (Tanisha Pantoja ., ERIN-C) Subjective Pt evaluation today including: conversation w/ patient, physical exam, chart review, lab review, review of inpatient medication list Patient complains of generalized weakness and fatigue. He states he does not really have any abdominal pain at rest, but with movement his pain can go up to a 6/10 crampy pain in his lower quadrants. He denies left lateral rib pain at rest. He is tolerating his diet well. He moved his bowels 5 times yesterday. The patient was able to urinate 225 cc last night, although he noted some difficulty initiating his stream. He denies any dysuria. He denies any flank pain. The patient denies any shortness of breath, orthopnea, or wheezing. The patient denies fevers, chills, sweats, chest pain, palpitations, claudication, cough, wheezing, shortness of breath, nausea, vomiting, dysuria, hematuria, urinary retention, paralysis, weakness, numbness and tingling. Additional Comments: See HPI for pertinent positives and negatives. All other systems reviewed and negative. (Tanisha Pantoja ., PA-C) Objective Vital Signs Date Time Temp Pulse Resp B/P (MAP) Pulse Ox O2 Delivery O2 Flow Rate FiO2 11/01/17 07:50 Room Air 11/01/17 07:17 37.2 85 18 119/68 (85) 92 11/01/17 04:06 36.4 81 19 124/61 (82) 91 Room Air 11/01/17 04:00 Room Air 11/01/17 00:00 Room Air 10/31/17 23:18 36.5 87 20 104/60 (75) 91 Room Air 10/31/17 20:50 83 98/51 (67) 10/31/17 20:00 93 Room Air 10/31/17 19:18 36.9 82 20 94/57 (69) 92 Room Air 10/31/17 15:18 36.8 84 18 108/61 (77) 91 Nasal Cannula 3.0 10/31/17 15:15 91 Nasal Cannula 3.0 10/31/17 12:00 94 Room Air 10/31/17 11:39 80 18 78/46 (57) 10/31/17 11:26 36.3 84 16 79/50 (60) 93 83/51 (62) (Tanisha Pantoja ., PA-C) Physical Exam Notes: General appearance: +Obese. Well-developed, well-nourished, no apparent distress Head: Normocephalic, atraumatic Eyes: Normal inspection, PERRL, EOMI ENT: Normal ENT inspection, hearing grossly normal, pharynx normal Neck: Supple, no JVD, trachea midline Respiratory/Chest: +Poor respiratory effort due to rib pain. Decreased breath sounds. Lungs clear to auscultation, no respiratory distress Cardiovascular: Regular rate & rhythm, no gallop, no murmur Abdomen/GI: +RLQ and LLQ TTP. Normal bowel sounds, soft Extremities/Musculoskeletal: Normal inspection, no calf tenderness, no pedal edema Neurological/Psych: Alert, normal mood/affect, oriented x 3 Skin: Normal color, warm/dry, no rash (Tanisha Pantoja ., PA-C) Laboratory Results Last 24 Hours Test 10/31/17 11:37 10/31/17 16:17 10/31/17 20:42 10/31/17 22:15 Bedside Glucose 275 mg/dl 214 mg/dl 190 mg/dl Urine Color DK YELLOW Urine Appearance CLEAR Urine pH 5.0 Urine Specific [place] 1.037 Urine Protein NEG Urine Glucose (UA) NEG Urine Ketones TRACE Urine Occult Blood NEG Urine Nitrite NEG Urine Bilirubin NEG Urine Urobilinogen NEG Urine Leukocyte Esterase NEG Urine WBC (Auto) 1-5 /hpf Urine RBC (Auto) 0-4 /hpf Urine Hyaline Casts (Auto) 5-10 /lpf Urine Epithelial Cells (Auto) 10-20 /lpf Urine Bacteria (Auto) NEG Urine Pathogenic Casts /lpf Test 11/01/17 05:45 11/01/17 07:25 11/01/17 09:46 White Blood Count 9.91 K/uL Red Blood Count 3.59 M/uL Hemoglobin 10.6 g/dL Hematocrit 31.7 % Mean Corpuscular Volume 88.3 fL Mean Corpuscular Hemoglobin 29.5 pg Mean Corpuscular Hemoglobin Concent 33.4 g/dl RDW Standard Deviation 45.3 fL RDW Coefficient of Variation 13.9 % Platelet Count 186 K/uL Mean Platelet Volume 9.1 fL Sodium Level 126 mmol/L Potassium Level 5.2 mmol/L Chloride Level 93 mmol/L Carbon Dioxide Level 24 mmol/L Anion Gap 9.0 mmol/L Blood Urea Nitrogen 72 mg/dl Creatinine 3.05 mg/dl Est Creatinine Clear Calc Drug Dose 31.7 ml/min Estimated GFR () 23.0 Estimated GFR (Non- 19.9 BUN/Creatinine Ratio 23.5 Random Glucose 186 mg/dl Calcium Level 8.1 mg/dl Bedside Glucose 177 mg/dl (Tanisha Pantoja ., PAEleanorC) Assessment and Plan 67 y/o male with a history of CAD s/p CABG x 3, HTN, HLD, cardiomyopathy, complete heart block s/p bi-ventricular pacer, DM II and GERD who presented with abdominal pain. CT abdomen/pelvis consistent with fecal retention and colitis Abdominal pain, fecal retention, colitis--improving -Leukocytosis improving/resolving. WBC 9.91 on 11/01, down from 12.97 -Pt continuing to move bowels, no abdominal pain at rest -Continue Colace, scheduled Miralax, prn milk of molasses -Advance to AHA diet Acute renal failure--worsening -Baseline creatinine 0.9-1.0 -Creatinine 3.05 on 11/01, up from 1.93 -Repeat PRP -Continue NSS at 75 cc/hr -Check renal ultrasound. Kidneys unremarkable on CT abdomen/pelvis on 10/30 Hypotension--improving, BP now WNL -IVF as above -Continue to hold lisinopril Hyperkalemia -Potassium 5.2, start low potassium diet Recent syncope--stable, no further recurrence -Admitted to telemetry. No acute events overnight. Pt paced, HR 80s CAD, s/p CABG, HTN, HLD, cardiomyopathy, complete heart block s/p pacer--stable -Continue Coreg 25 mg PO BID w/hold parameters: hold if SBP less than 100 or HR less than 60 -Continue ASA, Lipitor 20 mg PO hs -Lisinopril on hold due to ULICES DM II--HgbA1c 7.3 on 09/07 -Hold 70/30 -Insulin sliding scale -Check BSGs q ac and qhs GERD -Protonix 40 mg PO qd Recent L4-L5, L5-S1 laminectomy -Decrease oxycodone to 5 mg PO q4h prn pain Code Status -Level I, FULL RESUSCITATION STATUS Dispo -PT/OT evaluate and treat due to recent fall, rib fractures, recent back surgery (Tanisha Pantoja ., PA-C) Reviewed: Pt Seen/Exam by Me (Brii Hong DO) History Pt with ongoing indigestion that is helped with protonix. Nursing reported RUQ pain this AM, however has resolved. Pt was with minimal UOP this AM and bladder scanned for 700cc. Avitia placed and UOP is much improved. Pt tells me that he has been having urination issues increasing recently. No dx of BPH but has noted starting and stopping stream issues with decreased stream at times and frequent nocturnal urination. This is all newer for the pt. Tolerating PO without issue. Denies chest pain, SOB. He still feels distended. He has passed some stool, but it is all loose stools, nothing formed. No abd pain however. Agree with HPI/ROS as noted by PA. (Brii Hong DO) Comments General Appearance: WD/WN, no apparent distress Eye Exam: bilateral eye normal inspection, bilateral eye other (nml slcera) Respiratory: normal breath sounds, no respiratory distress Cardiovascular: normal peripheral pulses, regular rate, rhythm Gastrointestinal: non tender, soft, distention Extremities: non-tender, no pedal edema Neurologic/Psychiatric: alert, normal mood/affect, oriented x 3 Skin Characteristics: normal color, warm/dry (Brii Hong DO) Assessment/Plan Agree with plan as outlined above Asx hypoTN, improving with IVF ULICES, worsening now with worsening UOP Bladder scanned for retention with avitia placed and improving UOP Possible BPH given difficulty placing avitia If cr is improved tomorrow, consider urology c/s, however if worsened cr tomorrow, t/c renal c/s Renal US neg Did pass some stool, abd is improving Fecal impaction may also be causing bladder obstruction (Brii Hong, )
[2017-11-01 10:13] LABS: CALCIUM 7.9 mg/dl (8.5-10.1); CREATININE 2.73 mg/dl (0.60-1.40); POTASSIUM 4.8 mmol/L (3.5-5.1)
--- NOTE | 2017-11-01 11:55 | DIAGNOSTIC IMAGING REPORT ---
EXAMINATION: RENAL ULTRASOUND CLINICAL HISTORY: acute renal failure COMPARISON STUDY: CT scan dated 10/30/2017 FINDINGS: The right kidney measures 12.7 cm. The left kidney measures 13 cm. There is no evidence of hydronephrosis. There are no renal masses. There is an indwelling Parnell catheter. IMPRESSION : No renal masses identified. No evidence of hydronephrosis. Electronically signed by: Haresh Knox M.D. 11/01/2017 11:54 AM Dictated Date/Time: 11/01/2017 11:53 AM
[2017-11-01] MEDS: ATORVASTATIN 20 MG TAB PO SCH (21:19)
[2017-11-02] VITALS (8 sets, daily range): BP systolic 125–147; BP diastolic 57–72; PULSE 72–83; TEMP 36.6–37; O2SAT 92–95
[2017-11-02 06:25] LABS: HEMATOCRIT 31.5 % (42-52); HEMOGLOBIN 10.5 g/dL (14.0-18.0); MEAN CORPUSCULAR HEMOGLOBIN 29.3 pg (25-34); MEAN CORPUSCULAR HGB CONC 33.3 g/dl (32-36); MEAN PLATELET VOLUME 9.4 fL (7.4-10.4); PLATELET COUNT 192 K/uL (130-400); RED CELL DISTRIBUTION WIDTH CV 13.8 % (11.5-14.5); RED CELL DISTRIBUTION WIDTH SD 44.5 fL (36.4-46.3); WHITE BLOOD COUNT 10.36 K/uL (4.8-10.8)
[2017-11-02 06:54] LABS: CREATININE 1.23 mg/dl (0.60-1.40)
[2017-11-02 06:55] LABS: CALCIUM 7.8 mg/dl (8.5-10.1); POTASSIUM 4.8 mmol/L (3.5-5.1)
[2017-11-02] MEDS: ASPIRIN 81 MG ECTAB PO SCH (09:03)
[2017-11-02] MEDS: DOCUSATE SODIUM 100 MG CAP PO SCH ×2 (09:03→20:45)
[2017-11-02] MEDS: POLYETHYLENE (MIRALAX) 17 GM PACK PO SCH (09:03)
[2017-11-02] MEDS: PANTOprazole SOD 40 MG TAB PO SCH (09:03)
[2017-11-02] MEDS: CARVEDILOL 25 MG TAB PO SCH ×2 (09:04→20:45)
[2017-11-02] MEDS: INSULIN ASPART 100 UNITS/ML 3 ML PEN SC SCH ×4 (09:08→20:51)
--- NOTE | 2017-11-02 11:01 | Clinical Documentation Query ---
CLINICAL DOCUMENTATION QUERY Dr. ESTEVEZ, In your clinical opinion is this patient being managed for: ( x ) Multiple L sided rib fractures ( ) Not Agree ( ) Other explanation of clinical findings (Please Explain) ( ) Unable to determine (Please Define) ( ) Need to Discuss The medical record reflects the following clinical findings, treatment, and risk factors. Clinical Indicators: 67 yo male presented with abd pain. Had prior presentation to ER after a syncopal episode. CT abd notes fractures of the left seventh, eighth, and ninth ribs. "Rib fractures" is originally noted in the ER impression and tucked into the H/P. It has since been removed from the documentation. Treatment: oral pain management Risk Factors: recent syncopal episode Please clarify and document your clinical opinion in the progress notes and discharge summary. Terms such as "probable", "suspected", "likely", "questionable", "possible", or "still to be ruled out" are acceptable. IF IN AGREEMENT, YOU MUST DOCUMENT ABOVE DIAGNOSTIC STATEMENT IN DAILY PROGRESS NOTES AND DISCHARGE SUMMARY. This document is not part of the patient's record. Thank You, Savannah Neff RN [phone]
--- NOTE | 2017-11-02 12:17 | Gastrointestinal Consultation ---
Gastrointestinal Consultation Date of Consultation: Nov 02, 2017 Attending Physician: Dr. Martínez Consulting Physician: Dr. Mayes Reason for Consultation: Continued abdominal pain History of Present Illness Patient is a 67 year old male patient of Dr. Migue Arrieta with a hx of CAD, HTN, DM-2, lumbar stenosis who underwent laminectomy 10/01/17 then experienced a syncopal episode/fall with fractured ribs on Thursday10/27/17. He was seen in the ED and discharged that day. Then on 10/30, he returned with severe abdominal pain. He underwent underwent CT abd/pelvis with IV, no oral contrast suggesting constipation. He is seen and examined while he is sitting up in a bedside chair. He tells us that he received laxatives and has passed several large BMs since the CT. After passing the BMs, his lower abdomen cramping pain persists but has decreased to a 4 of 10. His most recent colonoscopy was about 10 yrs ago. He denies any blood in stools. He had one episode of vomiting a few days ago, but generally has not had nausea or vomiting. Past Medical/Surgical History Medical Problems: (1) Abdominal pain Status: Acute (2) Contusion of chest Status: Acute (3) Fall Status: Acute (4) Multiple rib fractures Status: Acute (5) Syncope Status: Acute Past Medical History: 1) DM II 2) Lumbar stenosis 3) HTN 4) Pacemaker 5) Obesity 6) CAD Past Surgical History: 1. 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 - CABG 2012 3) L4-5,L5-S1 laminectomy 10/01/17 Social History Smoking Status: Never Smoker Marital Status: Occupation Status: employed Allergies Coded Allergies: No Known Allergies (Unverified , 10/27/17) Current Medications Home Meds and Scripts Medications Dose Route/Sig Max Daily Dose Days Date Category Dose Instructions Roxicodone Ir (Oxycodone HCl) 5 Mg Tab 1-2 Tab PO Q4H PRN 10/27/17 Rx Miralax (Polyethylene Glycol 3350) 1 Pow Pow 17 Gm PO DAILY 10/27/17 Rx Breo Ellipta (Fluticasone Furoate-Vilanterol) 1 Inh Inh 1 Dose INH UD PRN 10/27/17 Reported Amoxil (Amoxicillin) 500 Mg Cap 500 Mg PO QID 10/27/17 Reported Novolin 70/30 (Insulin Human Isoph/Insulin Regular) Susp 56 Units SC QPM 10/27/17 Reported Novolin 70/30 (Insulin Human Isoph/Insulin Regular) Susp 36 Units SC QAM 10/27/17 Reported Aspirin Chewable (Aspirin) 81 Mg Chew 81 Mg PO DAILY 10/01/17 Reported Multi Vitamin Daily (Multiple Vitamin) 1 Tab Tab 1 Tab PO QAM 08/07/17 Reported Novolog Flexpen (Insulin Aspart) 100 Units/Ml Inj 1 Dose SQ UD 08/07/17 Reported sliding scale Glucophage (Metformin Hcl) 500 Mg Tab 500 Mg PO BID 04/09/17 Reported Coreg (Carvedilol) 25 Mg Tab 25 Mg PO BID 04/09/17 Reported Ventolin Hfa (Albuterol) 200 Puffs/47803 Mcg Aers 1-2 Puffs INH Q4H PRN 04/09/17 Reported Zestril (Lisinopril) 10 Mg Tab 10 Mg PO QAM 04/09/17 Reported Lipitor (Atorvastatin Calcium) 20 Mg Tab 20 Mg PO QPM 04/09/17 Reported Review of Systems Constitutional: No fever, No chills, No sweats, No weight loss, No weakness Eyes: No eye pain, No redness ENT: No sore throat, No trouble swallowing, No pain on swallowing Respiratory: No cough, No wheezing, No shortness of breath, No dyspnea on exertion Cardiac: No chest pain, No edema, No palpitations Abdomen: + see HPI, + pain, + constipation, No nausea, No vomiting, No diarrhea , No GI bleeding, No dysphagia, No odynophagia Neuro: No memory loss, No weakness, No numbness/tingling, No vertigo, No balance problems Psych: No depression symptoms, No anxiety, No insomnia Heme: No abnormal bleeding/bruising, No night sweats Endo: No excessive thirst, No excessive urination Skin: No rash, No itch, No new/changing skin lesions, No jaundice Physical Exam Date Time Temp Pulse Resp B/P (MAP) Pulse Ox O2 Delivery O2 Flow Rate FiO2 11/02/17 11:37 36.9 72 20 135/70 (91) 95 11/02/17 08:00 93 Room Air 3.0 11/02/17 07:15 36.9 83 20 137/72 (93) 93 Room Air 11/02/17 04:34 36.6 78 19 130/70 (90) 92 Room Air 11/02/17 04:00 Room Air 11/02/17 00:00 Room Air 11/01/17 23:53 37.2 79 18 121/68 (85) 92 Room Air 11/01/17 21:23 82 94/52 (66) 11/01/17 20:30 36.8 82 19 104/57 (73) 91 Room Air 11/01/17 20:00 Room Air 11/01/17 16:00 Room Air 11/01/17 14:21 37.3 82 18 97/48 (64) 92 Room Air 11/01/17 12:00 Room Air General Appearance: + mild distress (related to the rib fractures) Eyes: normal inspection, EOMI Neck: supple, no adenopathy, thyroid normal, no JVD Respiratory/Chest: chest non-tender, lungs clear, normal breath sounds, no accessory muscle use Cardiovascular: regular rate, rhythm, no JVD, no murmur Abdomen: normal bowel sounds, non tender, soft, no organomegaly Extremities: normal inspection, no pedal edema, normal capillary refill Neurologic/Psych: alert, normal mood/affect, oriented x 3 Skin: normal color, no jaundice, warm/dry, no rash His abdomen is soft, non tender on exam. Laboratory Results Last 24 Hours Test 11/01/17 12:04 11/01/17 16:14 11/01/17 20:28 11/02/17 05:58 Bedside Glucose 191 mg/dl 206 mg/dl 210 mg/dl White Blood Count 10.36 K/uL Red Blood Count 3.58 M/uL Hemoglobin 10.5 g/dL Hematocrit 31.5 % Mean Corpuscular Volume 88.0 fL Mean Corpuscular Hemoglobin 29.3 pg Mean Corpuscular Hemoglobin Concent 33.3 g/dl RDW Standard Deviation 44.5 fL RDW Coefficient of Variation 13.8 % Platelet Count 192 K/uL Mean Platelet Volume 9.4 fL Sodium Level 128 mmol/L Potassium Level 4.8 mmol/L Chloride Level 98 mmol/L Carbon Dioxide Level 24 mmol/L Anion Gap 6.0 mmol/L Blood Urea Nitrogen 51 mg/dl Creatinine 1.23 mg/dl Est Creatinine Clear Calc Drug Dose 79.0 ml/min Estimated GFR () 69.0 Estimated GFR (Non- 59.5 BUN/Creatinine Ratio 41.5 Random Glucose 177 mg/dl Calcium Level 7.8 mg/dl Prostate Specific Antigen 0.743 ng/ml Test 11/02/17 07:36 Bedside Glucose 174 mg/dl Impression Patient is a 67 year old male with post op constipation/ileus, now much improved after laxatives and passing BMs. A CT scan suggested left sided colon wall thickening. Colonoscopy should be completed to r/o colon cancer, ischemic bowel and IBD. Plan 1. Plan for OP colonoscopy in 1-2 months. 2. One dose of Relistor today. This may need to be repeated if he continues on narcotics for the rib pain. I saw and evaluated the patient with . We are consulted for evaluation of acute constipation which began after a recent lumbar surgery last month. The patient does note having some improvement with use of a fleets enema. Physical examination No obvious distress Mild abdominal distention Impression: Patient presenting with abdominal pain likely related to his narcotic use from his recent lumbar surgery. We will recommend continued use of MiraLAX 1-2 times daily in addition to a dose of Relistor today. We did discuss the role of outpatient colonoscopy with the patient today. Recommendations MiraLAX 17 g 1-2 times daily Relistor today Outpatient colonoscopy
--- NOTE | 2017-11-02 12:54 | Hospitalist Progress Note ---
Hospitalist Progress Note Date of Service Nov 02, 2017. Subjective Pt evaluation today including: conversation w/ patient, physical exam, lab review, review of studies, review of inpatient medication list Voiding: avitia catheter in place Patient sitting in bedside chair. Not feeling well this AM. Complains of persistent abdominal pain. Little improvement since admission. Notes little improvement with BMs. Eating little due to abdominal discomfort. +L-sided rib pain. Patient denies any fever, chills, sweats, lightheadedness, dizziness, vision changes, CP, palpitations, edema, SOB, wheezing, cough, nausea, vomiting, diarrhea, urinary symptoms, melena, numbness/tingling, weakness, anxiety/ depression, active bleeding, or new skin discoloration/changes. Medications Current Inpatient Medications Medications (Trade) Dose Ordered Sig/Gaby Route Start Time Stop Time Status Last Admin Dose Admin Ioversol (Optiray 320) 111 ml UD PRN IV 10/30/17 15:00 11/03/17 14:59 Aspirin (Ecotrin Tab) 81 mg QAM PO 10/31/17 09:00 11/30/17 08:59 11/02/17 09:03 81 MG Atorvastatin Calcium (Lipitor Tab) 20 mg QPM PO 10/30/17 21:00 11/29/17 20:59 11/01/17 21:19 20 MG Carvedilol (Coreg Tab) 25 mg BID PO 10/30/17 21:00 11/29/17 20:59 11/02/17 09:04 25 MG Miscellaneous Information (Order Awaiting Action) 1 ea QS N/A 10/30/17 20:00 11/29/17 19:59 Polyethylene (Miralax Powder Packet) 17 gm QAM PO 10/31/17 09:00 11/30/17 08:59 11/02/17 09:03 17 GM Docusate Sodium (coLACE CAP) 100 mg BID PO 10/30/17 21:00 11/29/17 20:59 11/02/17 09:03 100 MG Acetaminophen (Tylenol Tab) 650 mg Q4H PRN PO 10/30/17 18:45 11/29/17 18:44 Al Hydrox/Mg Hydrox/Simethicone (Maalox Max Susp) 15 ml Q4H PRN PO 10/30/17 18:45 11/29/17 18:44 10/31/17 23:30 15 ML Magnesium Hydroxide (Milk Of Magnesia Susp) 30 ml Q12H PRN PO 10/30/17 18:45 11/29/17 18:44 Zolpidem Tartrate (Ambien Tab) 5 mg HSZ PRN PO 10/30/17 18:45 11/29/17 18:44 Ondansetron HCl (Zofran Inj) 4 mg Q6H PRN IV 10/30/17 18:45 11/29/17 18:44 Morphine Sulfate (MoRPHine SULFATE INJ) 2 mg Q30M PRN IV 10/30/17 18:45 11/13/17 18:44 Polyethylene (Miralax Powder Packet) 17 gm DAILY PRN PO 10/30/17 18:45 11/29/17 18:44 10/30/17 21:31 17 GM Insulin Aspart (novoLOG ASPART) SLIDING SCALE G... ACHS SC 10/30/17 21:00 11/29/17 20:59 11/02/17 12:35 11 UNITS Glucose (Glucose 40% Gel) 15-30 GRAMS 15 GRAMS... UD PRN PO 10/30/17 20:15 11/29/17 20:14 Glucose (Glucose Chew Tab) 4-8 Tablets 4 Tabl... UD PRN PO 10/30/17 20:15 11/29/17 20:14 Dextrose (Dextrose 50% 50ML Syringe) 25-50ML OF 50% DW IV FOR... UD PRN IV 10/30/17 20:15 11/29/17 20:14 Glucagon (Glucagon Inj) 1 mg UD PRN SQ 10/30/17 20:15 11/29/17 20:14 Al Hydroxide/Mg Hydroxide/ Lidocaine HCl/ Barcode Q6H PRN PO 10/31/17 08:45 11/30/17 08:44 11/01/17 08:05 24 ML Oxycodone HCl (Roxicodone Immediate Rel Tab) 5 mg Q4H PRN PO 10/31/17 12:15 11/13/17 18:44 10/31/17 20:56 5 MG Pantoprazole Sodium (Protonix Tab) 40 mg QAM PO 11/01/17 09:00 11/05/17 08:59 11/02/17 09:03 40 MG Sodium Chloride 1,000 ml @ 75 mls/hr [id number] IV 10/31/17 12:15 11/30/17 12:14 11/01/17 15:41 75 MLS/HR Methylnaltrexone [place] (Relistor Inj) 12 mg ONE ONCE SQ 11/02/17 12:30 11/02/17 12:31 UNV Objective Vital Signs Date Time Temp Pulse Resp B/P (MAP) Pulse Ox O2 Delivery O2 Flow Rate FiO2 11/02/17 11:37 36.9 72 20 135/70 (91) 95 11/02/17 08:00 93 Room Air 3.0 11/02/17 07:15 36.9 83 20 137/72 (93) 93 Room Air 11/02/17 04:34 36.6 78 19 130/70 (90) 92 Room Air 11/02/17 04:00 Room Air 11/02/17 00:00 Room Air 11/01/17 23:53 37.2 79 18 121/68 (85) 92 Room Air 11/01/17 21:23 82 94/52 (66) 11/01/17 20:30 36.8 82 19 104/57 (73) 91 Room Air 11/01/17 20:00 Room Air 11/01/17 16:00 Room Air 11/01/17 14:21 37.3 82 18 97/48 (64) 92 Room Air Physical Exam General Appearance: no apparent distress, + obese Eyes: normal inspection, PERRL ENT: hearing grossly normal Neck: supple Respiratory/Chest: lungs clear, no respiratory distress, no accessory muscle use Cardiovascular: regular rate, rhythm Abdomen: + abnormal bowel sounds (high pitched ), + distended, + tenderness ( lower abdominal quadrants ) Neurologic/Psychiatric: alert, normal mood/affect, oriented x 3 Skin: normal color, warm/dry, no rash Laboratory Results Last 24 Hours Test 11/01/17 16:14 11/01/17 20:28 11/02/17 05:58 11/02/17 07:36 Bedside Glucose 206 mg/dl 210 mg/dl 174 mg/dl White Blood Count 10.36 K/uL Red Blood Count 3.58 M/uL Hemoglobin 10.5 g/dL Hematocrit 31.5 % Mean Corpuscular Volume 88.0 fL Mean Corpuscular Hemoglobin 29.3 pg Mean Corpuscular Hemoglobin Concent 33.3 g/dl RDW Standard Deviation 44.5 fL RDW Coefficient of Variation 13.8 % Platelet Count 192 K/uL Mean Platelet Volume 9.4 fL Sodium Level 128 mmol/L Potassium Level 4.8 mmol/L Chloride Level 98 mmol/L Carbon Dioxide Level 24 mmol/L Anion Gap 6.0 mmol/L Blood Urea Nitrogen 51 mg/dl Creatinine 1.23 mg/dl Est Creatinine Clear Calc Drug Dose 79.0 ml/min Estimated GFR () 69.0 Estimated GFR (Non- 59.5 BUN/Creatinine Ratio 41.5 Random Glucose 177 mg/dl Calcium Level 7.8 mg/dl Prostate Specific Antigen 0.743 ng/ml Test 11/02/17 11:12 Bedside Glucose 268 mg/dl Assessment and Plan 67 y/o male with a history of CAD s/p CABG x 3, HTN, HLD, cardiomyopathy, complete heart block s/p bi-ventricular pacer, DM II and GERD who presented with abdominal pain. 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 rewriter 1.0- RESOLVED, urinary retention: - Continue NSS at 75 cc/hr - Hold nephrotoxic agents and renally dose medications as appropriate - Renal US unremarkable - Avitia placed and ULICES resolved- will TOV prior to discharge - PSA 0.7 Hyponatremia- IMPROVING: Continue IVF Hypotension- RESOLVED: - IVF as above - Hold Lisinopril Hyperkalemia, likely secondary to ULICES- RESOLVED: Continue low potassium diet Recent syncope- STABLE: No acute events on tele L rib fractures 6-9, recent L4-L5, L5-S1 laminectomy: - Roxicodone PRN- try to limit use due to constipation - Tylenol PRN, Lidoderm patch CAD, s/p CABG, HTN, HLD, cardiomyopathy, complete heart block s/p pacer- STABLE : - Continue Coreg 25 mg PO BID w/ hold parameters, ASA, Lipitor 20 mg HS - Lisinopril on hold due to ULICES DM II- hgbA1c 7.3% on 09/07 - Hold 70/30 and Metformin - BSG ACHS and ISS GERD: Protonix 40 mg daily DVT prophylaxis: TEDs/SCDs, ambulation Code status: LEVEL I, FULL Dispo: Discharge uncertain- PT recommending rehab
[2017-11-02] MEDS ORDERED: METHYLNALTREXONE BROMIDE INJ 12 MG/0.6 ML SYR SQ ONE (13:00)
[2017-11-02] MEDS ORDERED: ALBUTEROL HFA 8 GM INHALER INH PRN (15:30)
--- NOTE | 2017-11-02 19:34 | DIAGNOSTIC IMAGING REPORT ---
KUB HISTORY: Acute constipation with abdominal distention ? constipation, ? bowel distention COMPARISON: CT 10/30/2017 FINDINGS: Mild gaseous distention of the stomach and large bowel with loops of colon measuring up to 7.3 cm transversely. No dilated small bowel loops identified. Cholecystectomy clips noted. No renal calculi. No ureteral calculi. No pneumoperitoneum or pneumatosis. No fracture. Median sternotomy. Partially imaged pacer leads are seen overlying the heart. IMPRESSION: 1. Nonobstructive bowel gas pattern. 2. Mildly dilated loops of large bowel suggests colonic ileus. 3. No pneumatosis or pneumoperitoneum identified. Electronically signed by: Chele Gaitan M.D. 11/02/2017 7:33 PM Dictated Date/Time: 11/02/2017 7:31 PM
[2017-11-02] MEDS: ATORVASTATIN 20 MG TAB PO SCH (20:45)
[2017-11-02] MEDS ORDERED: TAMSULOSIN HCL 0.4 MG CAP PO SCH (21:00)
[2017-11-03] VITALS (7 sets, daily range): BP systolic 118–162; BP diastolic 55–79; PULSE 70–80; TEMP 36.8–37.3; O2SAT 93–97
[2017-11-03 06:15] LABS: HEMATOCRIT 31.7 % (42-52); HEMOGLOBIN 10.5 g/dL (14.0-18.0); MEAN CELL VOLUME 87.6 fL (80-100); MEAN CORPUSCULAR HGB CONC 33.1 g/dl (32-36); MEAN PLATELET VOLUME 9.2 fL (7.4-10.4); PLATELET COUNT 195 K/uL (130-400); RED CELL DISTRIBUTION WIDTH CV 13.4 % (11.5-14.5); RED CELL DISTRIBUTION WIDTH SD 43.6 fL (36.4-46.3); WHITE BLOOD COUNT 10.18 K/uL (4.8-10.8)
[2017-11-03 06:57] LABS: CREATININE 0.74 mg/dl (0.60-1.40)
[2017-11-03 06:58] LABS: POTASSIUM 4.7 mmol/L (3.5-5.1)
[2017-11-03] MEDS: ASPIRIN 81 MG ECTAB PO SCH (07:55)
[2017-11-03] MEDS: DOCUSATE SODIUM 100 MG CAP PO SCH (07:56)
[2017-11-03] MEDS: PANTOprazole SOD 40 MG TAB PO SCH (07:56)
[2017-11-03] MEDS: CARVEDILOL 25 MG TAB PO SCH (07:56)
[2017-11-03] MEDS: POLYETHYLENE (MIRALAX) 17 GM PACK PO SCH (07:57)
[2017-11-03] MEDS: INSULIN ASPART 100 UNITS/ML 3 ML PEN SC SCH ×2 (08:05→13:07)
[2017-11-03] MEDS ORDERED: LIDODERM (LIDOCAINE) PATCH 5% TD SCH (09:00)
[2017-11-03] MEDS ORDERED: ALBUT/IPRATROP 3MG/0.5MG NEB 3 ML VIAL INH PRN (09:45)
--- NOTE | 2017-11-03 10:13 | Gastroenterology Progress Note ---
Progress Note Date of Service: Nov 03, 2017 Subjective Pt evaluation today including: conversation w/ patient, physical exam, chart review, lab review, review of studies, review of inpatient medication list Mr. Garcia is a 67 yr old male who underwent lumbar laminectomy on 10/01 then fell on 10/27 sustaining rib fx. He presented to the ED on 10/[address] suggesting constipation. BMs after the CT with significant improvement in the constipation. KUB yesterday with mild colonic ileus. Pt hasn't taken any narcotics since late on - in an effort to improve the constipation. This morning he feels further improved, currently w/o any abdominal pain. Two BMs yesterday. On daily Miralax. Review of Systems Constitutional: No fever Respiratory: No cough Cardiac: No chest pain Abdomen: + constipation (resolving), No pain, No nausea, No vomiting, No diarrhea Musculoskeletal: No joint pain Male : No dysuria Neuro: No memory loss Psych: No depression symptoms Heme: No abnormal bleeding/bruising Endo: No fatigue Skin: No rash Medications Current Inpatient Medications Medications (Trade) Dose Ordered Sig/Gaby Route Start Time Stop Time Status Last Admin Dose Admin Ioversol (Optiray 320) 111 ml UD PRN IV 10/30/17 15:00 11/03/17 14:59 Aspirin (Ecotrin Tab) 81 mg QAM PO 10/31/17 09:00 11/30/17 08:59 11/03/17 07:55 81 MG Atorvastatin Calcium (Lipitor Tab) 20 mg QPM PO 10/30/17 21:00 11/29/17 20:59 11/02/17 20:45 20 MG Carvedilol (Coreg Tab) 25 mg BID PO 10/30/17 21:00 11/29/17 20:59 11/03/17 07:56 25 MG Miscellaneous Information (Order Awaiting Action) 1 ea QS N/A 10/30/17 20:00 11/29/17 19:59 Polyethylene (Miralax Powder Packet) 17 gm QAM PO 10/31/17 09:00 11/30/17 08:59 11/03/17 07:57 17 GM Docusate Sodium (coLACE CAP) 100 mg BID PO 10/30/17 21:00 11/29/17 20:59 11/03/17 07:56 100 MG Acetaminophen (Tylenol Tab) 650 mg Q4H PRN PO 10/30/17 18:45 11/29/17 18:44 11/03/17 08:10 650 MG Al Hydrox/Mg Hydrox/Simethicone (Maalox Max Susp) 15 ml Q4H PRN PO 10/30/17 18:45 11/29/17 18:44 10/31/17 23:30 15 ML Magnesium Hydroxide (Milk Of Magnesia Susp) 30 ml Q12H PRN PO 10/30/17 18:45 11/29/17 18:44 Zolpidem Tartrate (Ambien Tab) 5 mg HSZ PRN PO 10/30/17 18:45 11/29/17 18:44 Ondansetron HCl (Zofran Inj) 4 mg Q6H PRN IV 10/30/17 18:45 11/29/17 18:44 Morphine Sulfate (MoRPHine SULFATE INJ) 2 mg Q30M PRN IV 10/30/17 18:45 11/13/17 18:44 Polyethylene (Miralax Powder Packet) 17 gm DAILY PRN PO 10/30/17 18:45 11/29/17 18:44 10/30/17 21:31 17 GM Insulin Aspart (novoLOG ASPART) SLIDING SCALE G... ACHS SC 10/30/17 21:00 11/29/17 20:59 11/03/17 08:05 6 UNITS Glucose (Glucose 40% Gel) 15-30 GRAMS 15 GRAMS... UD PRN PO 10/30/17 20:15 11/29/17 20:14 Glucose (Glucose Chew Tab) 4-8 Tablets 4 Tabl... UD PRN PO 10/30/17 20:15 11/29/17 20:14 Dextrose (Dextrose 50% 50ML Syringe) 25-50ML OF 50% DW IV FOR... UD PRN IV 10/30/17 20:15 11/29/17 20:14 Glucagon (Glucagon Inj) 1 mg UD PRN SQ 10/30/17 20:15 11/29/17 20:14 Al Hydroxide/Mg Hydroxide/ Lidocaine HCl/ Barcode Q6H PRN PO 10/31/17 08:45 11/30/17 08:44 11/01/17 08:05 24 ML Oxycodone HCl (Roxicodone Immediate Rel Tab) 5 mg Q4H PRN PO 10/31/17 12:15 11/13/17 18:44 10/31/17 20:56 5 MG Pantoprazole Sodium (Protonix Tab) 40 mg QAM PO 11/01/17 09:00 11/05/17 08:59 11/03/17 07:56 40 MG Lidocaine (Lidoderm Patch 5%) 1 patch QAM TD 11/03/17 09:00 12/03/17 08:59 11/03/17 07:56 1 PATCH Miscellaneous (Remove Lidoderm Patch) 1 ea DAILY@21 N/A 11/02/17 21:00 12/02/17 20:59 11/02/17 20:43 1 EA Albuterol (Ventolin Hfa Inhaler) 2 puffs Q4H PRN INH 11/02/17 15:30 12/02/17 15:29 11/02/17 20:45 2 PUFFS Tamsulosin HCl (Flomax Cap) 0.4 mg HS PO 11/02/17 21:00 12/02/17 20:59 11/02/17 20:45 0.4 MG Albuterol/ Ipratropium (Duoneb) 3 ml Q4R PRN INH 11/03/17 09:45 12/03/17 09:44 UNV Albuterol/ Ipratropium (Duoneb) 3 ml 1015 ONCE INH 11/03/17 10:15 11/03/17 10:16 Objective Vital Signs Date Time Temp Pulse Resp B/P (MAP) Pulse Ox O2 Delivery O2 Flow Rate FiO2 11/03/17 08:00 Room Air 11/03/17 07:50 37.1 75 20 129/69 (89) 95 11/03/17 04:00 37.3 80 20 138/72 (94) 94 Room Air 11/03/17 04:00 Room Air 11/03/17 00:16 37.1 77 20 118/55 (76) 93 Room Air 11/03/17 00:00 Room Air 11/02/17 20:33 94 Room Air 3.0 11/02/17 19:32 36.9 78 18 147/71 (96) 93 Room Air 11/02/17 16:44 94 Room Air 3.0 11/02/17 15:22 37.0 77 18 125/57 (79) 94 Room Air 11/02/17 12:00 Room Air 3.0 11/02/17 11:37 36.9 72 20 135/70 (91) 95 Physical Exam General Appearance: no apparent distress ENT: pharynx normal Neck: no adenopathy, thyroid normal, no JVD Respiratory/Chest: lungs clear Cardiovascular: regular rate, rhythm, no JVD, no murmur Abdomen: non tender, soft Extremities: non-tender Neurologic/Psych: alert, normal mood/affect, oriented x 3 Skin: no jaundice Laboratory Results Last 24 Hours Test 11/02/17 11:12 11/02/17 16:16 11/02/17 20:11 11/03/17 05:47 Bedside Glucose 268 mg/dl 181 mg/dl 212 mg/dl White Blood Count 10.18 K/uL Red Blood Count 3.62 M/uL Hemoglobin 10.5 g/dL Hematocrit 31.7 % Mean Corpuscular Volume 87.6 fL Mean Corpuscular Hemoglobin 29.0 pg Mean Corpuscular Hemoglobin Concent 33.1 g/dl RDW Standard Deviation 43.6 fL RDW Coefficient of Variation 13.4 % Platelet Count 195 K/uL Mean Platelet Volume 9.2 fL Sodium Level 132 mmol/L Potassium Level 4.7 mmol/L Chloride Level 100 mmol/L Carbon Dioxide Level 27 mmol/L Anion Gap 5.0 mmol/L Blood Urea Nitrogen 22 mg/dl Creatinine 0.74 mg/dl Est Creatinine Clear Calc Drug Dose 129.4 ml/min Estimated GFR () 109.1 Estimated GFR (Non- 94.1 BUN/Creatinine Ratio 29.7 Random Glucose 183 mg/dl Calcium Level 8.0 mg/dl Test 11/03/17 07:27 Bedside Glucose 178 mg/dl Assessment and Plan Mr. Garcia is a 67 yr old male with post operative, narcotic induced constipation /colonic ileus which is much improved with stopping the narcotics. Plan: Because CT with right colon wall thickening, he will undergo colonoscopy as an OP in 1-2 months. Our office will call him to arrange. Would continue daily Miralax and add Dulcolax prn no BM for 24 hrs. Would continue to hold or limit narcotic use. I saw and evaluated the patient. He notes feeling much better after given the dose of Relistor yesterday. I would suggest continuing a bowel regimen to include Colace 1 time daily in addition to MiraLAX 1 time daily. The patient will undergo an elective outpatient colonoscopy in the next 6-8 weeks as an outpatient. There is also strong family history of pancreatic cancer in his mother and grandmother and the patient is interested in pursuing screening for this. We will plan to do an outpatient endoscopic ultrasound in the next 6 months for screening purposes.
[2017-11-03] MEDS ORDERED: ALBUT/IPRATROP 3MG/0.5MG NEB 3 ML VIAL INH ONE (10:15)
[2017-11-03] MEDS ORDERED: BISACODYL 5 MG TABEC PO PRN (10:15)
--- NOTE | 2017-11-03 12:53 | Hospitalist Progress Note ---
Hospitalist Progress Note Date of Service Nov 03, 2017. Subjective Pt evaluation today including: conversation w/ patient, physical exam, lab review, review of studies, review of inpatient medication list Voiding: avitia catheter in place (draining clear/yellow urine ) Patient sitting in bedside chair. Feeling well this AM. Eating and drinking OK. Abdominal pain has improved w/ 2 BMs yesterday. Rib pain continues- trying to avoid narcotics, Lidoderm patch helped, Tylenol PRN available. Encouraged ambulation and incentive spirometer. Patient denies any fever, chills, sweats, lightheadedness, dizziness, vision changes, CP, palpitations, edema, SOB, wheezing, cough, abdominal pain, nausea, vomiting, diarrhea, urinary symptoms, melena, numbness/tingling, weakness, anxiety/depression, active bleeding, or new skin discoloration/changes. Medications Current Inpatient Medications Medications (Trade) Dose Ordered Sig/Gaby Route Start Time Stop Time Status Last Admin Dose Admin Ioversol (Optiray 320) 111 ml UD PRN IV 10/30/17 15:00 11/03/17 14:59 Aspirin (Ecotrin Tab) 81 mg QAM PO 10/31/17 09:00 11/30/17 08:59 11/03/17 07:55 81 MG Atorvastatin Calcium (Lipitor Tab) 20 mg QPM PO 10/30/17 21:00 11/29/17 20:59 11/02/17 20:45 20 MG Carvedilol (Coreg Tab) 25 mg BID PO 10/30/17 21:00 11/29/17 20:59 11/03/17 07:56 25 MG Miscellaneous Information (Order Awaiting Action) 1 ea QS N/A 10/30/17 20:00 11/29/17 19:59 Polyethylene (Miralax Powder Packet) 17 gm QAM PO 10/31/17 09:00 11/30/17 08:59 11/03/17 07:57 17 GM Docusate Sodium (coLACE CAP) 100 mg BID PO 10/30/17 21:00 11/29/17 20:59 11/03/17 07:56 100 MG Acetaminophen (Tylenol Tab) 650 mg Q4H PRN PO 10/30/17 18:45 11/29/17 18:44 11/03/17 08:10 650 MG Al Hydrox/Mg Hydrox/Simethicone (Maalox Max Susp) 15 ml Q4H PRN PO 10/30/17 18:45 11/29/17 18:44 10/31/17 23:30 15 ML Magnesium Hydroxide (Milk Of Magnesia Susp) 30 ml Q12H PRN PO 10/30/17 18:45 11/29/17 18:44 Zolpidem Tartrate (Ambien Tab) 5 mg HSZ PRN PO 10/30/17 18:45 11/29/17 18:44 Ondansetron HCl (Zofran Inj) 4 mg Q6H PRN IV 10/30/17 18:45 11/29/17 18:44 Morphine Sulfate (MoRPHine SULFATE INJ) 2 mg Q30M PRN IV 10/30/17 18:45 11/13/17 18:44 Polyethylene (Miralax Powder Packet) 17 gm DAILY PRN PO 10/30/17 18:45 11/29/17 18:44 10/30/17 21:31 17 GM Insulin Aspart (novoLOG ASPART) SLIDING SCALE G... ACHS SC 10/30/17 21:00 11/29/17 20:59 11/03/17 08:05 6 UNITS Glucose (Glucose 40% Gel) 15-30 GRAMS 15 GRAMS... UD PRN PO 10/30/17 20:15 11/29/17 20:14 Glucose (Glucose Chew Tab) 4-8 Tablets 4 Tabl... UD PRN PO 10/30/17 20:15 11/29/17 20:14 Dextrose (Dextrose 50% 50ML Syringe) 25-50ML OF 50% DW IV FOR... UD PRN IV 10/30/17 20:15 11/29/17 20:14 Glucagon (Glucagon Inj) 1 mg UD PRN SQ 10/30/17 20:15 11/29/17 20:14 Al Hydroxide/Mg Hydroxide/ Lidocaine HCl/ Barcode Q6H PRN PO 10/31/17 08:45 11/30/17 08:44 11/01/17 08:05 24 ML Oxycodone HCl (Roxicodone Immediate Rel Tab) 5 mg Q4H PRN PO 10/31/17 12:15 11/13/17 18:44 10/31/17 20:56 5 MG Pantoprazole Sodium (Protonix Tab) 40 mg QAM PO 11/01/17 09:00 11/05/17 08:59 11/03/17 07:56 40 MG Lidocaine (Lidoderm Patch 5%) 1 patch QAM TD 11/03/17 09:00 12/03/17 08:59 11/03/17 07:56 1 PATCH Miscellaneous (Remove Lidoderm Patch) 1 ea DAILY@21 N/A 11/02/17 21:00 12/02/17 20:59 11/02/17 20:43 1 EA Albuterol (Ventolin Hfa Inhaler) 2 puffs Q4H PRN INH 11/02/17 15:30 12/02/17 15:29 11/02/17 20:45 2 PUFFS Tamsulosin HCl (Flomax Cap) 0.4 mg HS PO 11/02/17 21:00 12/02/17 20:59 11/02/17 20:45 0.4 MG Albuterol/ Ipratropium (Duoneb) 3 ml Q4R PRN INH 11/03/17 09:45 12/03/17 09:44 Bisacodyl (Dulcolax Tab) 5 mg DAILY PRN PO 11/03/17 10:15 12/03/17 10:14 Objective Vital Signs Date Time Temp Pulse Resp B/P (MAP) Pulse Ox O2 Delivery O2 Flow Rate FiO2 11/03/17 11:25 36.8 73 20 162/79 (106) 96 11/03/17 11:08 72 16 97 Room Air 11/03/17 10:05 70 97 11/03/17 08:00 Room Air 11/03/17 07:50 37.1 75 20 129/69 (89) 95 11/03/17 04:00 37.3 80 20 138/72 (94) 94 Room Air 11/03/17 04:00 Room Air 11/03/17 00:16 37.1 77 20 118/55 (76) 93 Room Air 11/03/17 00:00 Room Air 11/02/17 20:33 94 Room Air 3.0 11/02/17 19:32 36.9 78 18 147/71 (96) 93 Room Air 11/02/17 16:44 94 Room Air 3.0 3/12/18 15:22 37.0 77 18 125/57 (79) 94 Room Air Physical Exam General Appearance: no apparent distress, + obese Eyes: normal inspection, PERRL ENT: hearing grossly normal Neck: supple Respiratory/Chest: no respiratory distress, no accessory muscle use, + decreased breath sounds (throughout, poor inspiratory effort ), + wheezing ( expiratory, throughout ) Cardiovascular: regular rate, rhythm Abdomen: normal bowel sounds, non tender, soft Extremities: no pedal edema, no calf tenderness Neurologic/Psychiatric: alert, normal mood/affect, oriented x 3 Skin: normal color, warm/dry, no rash Laboratory Results Last 24 Hours Test 11/02/17 16:16 11/02/17 20:11 11/03/17 05:47 11/03/17 07:27 Bedside Glucose 181 mg/dl 212 mg/dl 178 mg/dl White Blood Count 10.18 K/uL Red Blood Count 3.62 M/uL Hemoglobin 10.5 g/dL Hematocrit 31.7 % Mean Corpuscular Volume 87.6 fL Mean Corpuscular Hemoglobin 29.0 pg Mean Corpuscular Hemoglobin Concent 33.1 g/dl RDW Standard Deviation 43.6 fL RDW Coefficient of Variation 13.4 % Platelet Count 195 K/uL Mean Platelet Volume 9.2 fL Sodium Level 132 mmol/L Potassium Level 4.7 mmol/L Chloride Level 100 mmol/L Carbon Dioxide Level 27 mmol/L Anion Gap 5.0 mmol/L Blood Urea Nitrogen 22 mg/dl Creatinine 0.74 mg/dl Est Creatinine Clear Calc Drug Dose 129.4 ml/min Estimated GFR () 109.1 Estimated GFR (Non- 94.1 BUN/Creatinine Ratio 29.7 Random Glucose 183 mg/dl Calcium Level 8.0 mg/dl Test 11/03/17 11:46 Bedside Glucose 236 mg/dl Assessment and Plan 67 y/o male with a history of CAD s/p CABG x 3, HTN, HLD, cardiomyopathy, complete heart block s/p bi-ventricular pacer, DM II and GERD who presented with abdominal pain. 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- RESOLVED, urinary retention: - Continue NSS at 75 cc/hr - Hold nephrotoxic agents and renally dose medications as appropriate - Renal US unremarkable - Avitia placed and ULICES resolved- remove Avitia today and monitor UOP - PSA 0.7 - Flomax 0.4 mg HS Hyponatremia- IMPROVING: Continue IVF Hypotension- RESOLVED: - IVF as above - Hold Lisinopril Hyperkalemia, likely secondary to ULICES- RESOLVED: Continue low potassium diet Recent syncope- STABLE: No acute events on tele L rib fractures 6-9, recent L4-L5, L5-S1 laminectomy: - Roxicodone PRN- try to limit use due to constipation - Tylenol PRN, Lidoderm patch - Ambulation, encouraged incentive spirometer CAD, s/p CABG, HTN, HLD, cardiomyopathy, complete heart block s/p pacer- STABLE : - Continue Coreg 25 mg PO BID w/ hold parameters, ASA, Lipitor 20 mg HS - Lisinopril on hold due to ULICES- check PRP tomorrow AM w/ Avitia removed, if stable will resume Lisinopril DM II- hgbA1c 7.3% on 09/07 - Hold 70/30 and Metformin - BSG ACHS and ISS Asthma- STABLE: DuoNebs PRN for SOB/wheezing GERD: Protonix 40 mg daily DVT prophylaxis: TEDs/SCDs, ambulation Code status: LEVEL I, FULL Dispo: Planing for rehab at discharge- hopefully in the next 1-2 days- PT/OT and CM following
[2017-11-03] MEDS ORDERED: DLC5 PO (13:00)
[2017-11-03] MEDS ORDERED: LDDP5 TD (13:00)
[2017-11-03] MEDS ORDERED: FLM4 PO (13:00)
[2017-11-03] MEDS ORDERED: MRLP17 PO (13:00)
[2017-11-03] MEDS ORDERED: CLC100 PO (13:00)
[2017-11-03] MEDS ORDERED: OXYC1TAB3 PO (13:00)
--- NOTE | 2017-11-03 13:07 | Discharge Instructions ---
Discharge Instructions Date of Service Nov 03, 2017. Admission Reason for Admission: Colitis, Syncope Discharge Discharge Diagnosis / Problem: Colitis, constipation Discharge Goals Goal(s): Decrease discomfort, Improve function, Increase independence, Improve disease control, Learn about illness, Diagnostic testing, Therapeutic intervention, Prevent Disease Progression Activity Recommendations Activity Level: Assistance Required Therapies: Physical Therapy, Occupational Therapy . Additional Information Patient informed of condition: Yes Advance Directives: No DNR: No Level of Care: Acute Rehab Communicable Disease: No Prognosis: Improving Instructions / Follow-Up Instructions / Follow-Up 67 y/o male with a history of CAD s/p CABG x 3, HTN, HLD, cardiomyopathy, complete heart block s/p bi-ventricular pacer, DM II and GERD who presented with abdominal pain. 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, urinary retention: - NSS at 75 cc/hr - Hold nephrotoxic agents and renally dose medications as appropriate - Renal US unremarkable - Parnell placed and ULICES resolved- removed Parnell on prior to discharge, continue to monitor UOP and need for Parnell at [facility] -- If urinary retention returns, recommend Urology f/u - PSA 0.7 - Flomax 0.4 mg HS Hyponatremia- IMPROVING: Treated w/ IVF Hypotension- RESOLVED: - IVF as above - Held Lisinopril Hyperkalemia, likely secondary to ULICES- RESOLVED: Low potassium diet Recent syncope- STABLE: No acute events on tele L rib fractures 6-9, recent L4-L5, L5-S1 laminectomy: - Roxicodone PRN- try to limit use due to constipation -- Patient did not want Roxicodone at discharge, wished to try Tramadol PRN for severe pain instead - Tylenol PRN, Lidoderm patch - Ambulation, encouraged incentive spirometer CAD, s/p CABG, HTN, HLD, cardiomyopathy, complete heart block s/p pacer- STABLE : - Continue Coreg 25 mg PO BID w/ hold parameters, ASA, Lipitor 20 mg HS - Lisinopril on hold due to ULICES- resume at discharge DM II- hgbA1c 7.3% on 09/07 - Hold 70/30 and Metformin- resume at discharge - BSG ACHS and ISS Asthma- STABLE: DuoNebs PRN for SOB/wheezing- continue Ventolin PRN at discharge GERD: Protonix 40 mg daily DVT prophylaxis: TEDs/SCDs, ambulation Code status: LEVEL I, FULL Dispo: Discharge to [facility] FOLLOW-UPS: Please follow-up with [facility] provider within 24-48 hours Please follow-up with your PCP within 5-7 days after discharge from [facility] Follow-up with GI within 1-2 months Please follow-up/keep all of your subspecialty appointments Current Hospital Diet Patient's current hospital diet: Diabetes Type 2 Diet, Low Potassium Diet (2g K) Discharge Diet Recommended Diet: Diabetes Type 2 Diet, Low Potassium Diet (2g K) Pending Studies Studies pending at discharge: no Physician Orders On Transfer Special Precautions: Fall precautions Dressing Changes: None IV Therapy: None Vital Signs: Routine Additional Orders: Repeat PRP in 2-3 days POLST Discussion: Not Applicable Laboratory Results Hemoglobin A1c Test 09/07/17 10:20 Range/Units Estimated Average Glucose 163 mg/dl Hemoglobin A1c 7.3 H 4.5-5.6 % Medical Emergencies . Who to Call and When: Medical Emergencies: If at any time you feel your situation is an emergency, please call 911 immediately. . Non-Emergent Contact Non-Emergency issues call your: Primary Care Provider Call Non-Emergent contact if: you have a fever, your pain is not controlled, your pain is worsening, your pain is unusual for you, your pain is concerning you, you have any medication questions . . "Provider Documentation" section prepared by Halle Smith. . Core Measure Problem Core Measures: None
[2017-11-03] MEDS ORDERED: TRAM-10 PO (13:15)
--- NOTE | 2017-11-03 13:15 | Discharge Summary ---
Discharge Summary Date of Service Nov 03, 2017. Discharge Summary Admission Date: Oct 30, 2017 at 18:46 Discharge Date: Nov 03, 2017 Discharge Disposition: Rehab Principal Diagnosis: Colitis, constipation Problems/Secondary Diagnoses: Abdominal pain fecal retention colitis Leukocytosis ULICES on CKD stage III/II urinary retention Hyponatremia Hypotension Hyperkalemia Recent syncope L rib fractures 6-9 recent L4-L5, L5-S1 laminectomy CAD, s/p CABG HTN HLD cardiomyopathy complete heart block s/p pacer DM II- hgbA1c 7.3% on 09/07 Asthma GERD Immunizations: Have You Had Influenza Vaccine: Yes History of Tetanus Vaccine?: Yes History of Pneumococcal: Yes History of Hepatitis B Vaccine: No Procedures: CHEST ONE VIEW PORTABLE HISTORY: 67 years-old Male cp acute atypical chest pain COMPARISON: Chest radiographs 10/20/2017, CTA chest 10/27/2017 TECHNIQUE: Semierect AP view of the chest FINDINGS: Cardiomediastinal and hilar silhouettes are within normal limits. Prior median sternotomy and CABG. Left subclavian pacer is noted with leads appearing to be intact. There is no pneumothorax, pleural effusion, focal airspace consolidation or overt pulmonary edema. Acute minimally displaced fracture of the posterior left eighth rib is noted with additional fractures of the left ribs better seen on CT chest 10/27/2017. Left shoulder arthroplasty. IMPRESSION: 1. No acute process of the chest. 2. Acute minimally displaced fracture of the posterior left eighth rib with additional acute left-sided rib fractures better seen on CT chest 10/27/2017. No pneumothorax identified. The above report was generated using voice recognition software. It may contain grammatical, syntax or spelling errors. Electronically signed by: Chele Gaitan M.D. 10/30/2017 3:19 PM Dictated Date/Time: 10/30/2017 3:15 PM The status of this report is Signed. Draft = Not yet reviewed or approved by Radiologist. Signed = Reviewed and approved by Radiologist. CT ABD/PELVIS IV CONTRAST ONLY CLINICAL HISTORY: Severe diffuse abdominal pain COMPARISON STUDY: April 2006 TECHNIQUE: Following the IV administration of 115 mL of Optiray-320, CT scan of the abdomen and pelvis was performed from the lung bases to the proximal femurs. Images are reviewed in the axial, sagittal, and coronal planes. IV contrast was administered without complication. A dose lowering technique was utilized adhering to the principles of ALARA. CT DOSE: 2034.56 mGy.cm FINDINGS: Lower chest: There is a small left pleural effusion and trace right pleural effusion. There are minor dependent atelectatic changes. There are fractures of the left ninth eighth and seventh ribs. Liver: There is a stable 7 mm right lobe hypodensity. Gallbladder: Surgically absent Spleen: Normal in size and attenuation. Pancreas: Unremarkable. Adrenal glands: Unremarkable. Kidneys: There is symmetric renal cortical enhancement. The kidneys are normal in size without hydronephrosis. Bowel: There are no transition zones indicate bowel obstruction. There is colonic diverticulosis. There is mild fecal retention. There is bowel wall thickening and infiltration the pericolonic fat extending from the left transverse colon to the sigmoid. The findings are consistent with a colitis. Peritoneum: There is trace fluid in the left paracolic gutter and pelvis. No free air is visualized. Vasculature: The abdominal aorta is normal in course and caliber. Adenopathy: None. Pelvic viscera: There is minimal bladder wall thickening Skeletal structures: Postsurgical changes are present within the lumbar spine. There are fractures of the left seventh eighth and ninth ribs. IMPRESSION: 1. Fractures of the left seventh, eighth, and ninth ribs. 2. Small left pleural effusion and trace right pleural effusion 3. Bowel wall thickening and infiltration the pericolonic fat extending from the left transverse colon to the sigmoid. The findings are indicative of a colitis. 4. Fecal retention. Stool within the rectum measuring 81 mm in diameter Electronically signed by: Haresh Knox M.D. 10/30/2017 4:23 PM Dictated Date/Time: 10/30/2017 4:17 PM The status of this report is Signed. Draft = Not yet reviewed or approved by Radiologist. Signed = Reviewed and approved by Radiologist. (CHEST) THORAX WITHOUT CLINICAL HISTORY: Pleural effusion. History of trauma. Chest pain. COMPARISON STUDY: 10/27/2017 CT DOSE: 1236.95 mGy.cm TECHNIQUE: CT of the thorax was performed from the thoracic inlet to the lung bases. Images are reviewed in the axial, sagittal, and coronal planes. IV contrast was not administered for this examination. A dose lowering technique was utilized adhering to the principles of ALARA. FINDINGS: There is a left subclavian dual-chamber central venous pacemaker. Thyroid: Imaged portions of the thyroid gland are normal in appearance. Thoracic aorta: The thoracic aorta is normal in course and caliber, noting standard 3 vessel arch anatomy. Heart: The heart is normal in size and configuration, without pericardial effusion. There are coronary artery calcifications. Lungs and pleural spaces: There is a small left pleural effusion and trace right pleural effusion. There is no pneumothorax. There is no focal pulmonary consolidation. There are dependent atelectatic changes. Mediastinum: There is no mediastinal lymphadenopathy. Jennifer: Clear. Axilla: Clear. Upper abdomen: There is colonic wall thickening at the level of the splenic flexure consistent with a colitis. Skeletal structures: There are fractures of the left sixth through ninth ribs. IMPRESSION: 1. Fractures of the left sixth through ninth ribs 2. Small left pleural effusion and trace right pleural effusion 3. No evidence of pneumothorax 4. Colonic wall thickening at the level the splenic flexure consistent with a colitis Electronically signed by: Haresh Knox M.D. 10/30/2017 5:31 PM Dictated Date/Time: 10/30/2017 5:27 PM The status of this report is Signed. Draft = Not yet reviewed or approved by Radiologist. Signed = Reviewed and approved by Radiologist. EXAMINATION: RENAL ULTRASOUND CLINICAL HISTORY: acute renal failure COMPARISON STUDY: CT scan dated 10/30/2017 FINDINGS: The right kidney measures 12.7 cm. The left kidney measures 13 cm. There is no evidence of hydronephrosis. There are no renal masses. There is an indwelling Parnell catheter. IMPRESSION : No renal masses identified. No evidence of hydronephrosis. Electronically signed by: Haresh Knox M.D. 11/01/2017 11:54 AM Dictated Date/Time: 11/01/2017 11:53 AM The status of this report is Signed. Draft = Not yet reviewed or approved by Radiologist. Signed = Reviewed and approved by Radiologist KUB HISTORY: Acute constipation with abdominal distention ? constipation, ? bowel distention COMPARISON: CT 10/30/2017 FINDINGS: Mild gaseous distention of the stomach and large bowel with loops of colon measuring up to 7.3 cm transversely. No dilated small bowel loops identified. Cholecystectomy clips noted. No renal calculi. No ureteral calculi. No pneumoperitoneum or pneumatosis. No fracture. Median sternotomy. Partially imaged pacer leads are seen overlying the heart. IMPRESSION: 1. Nonobstructive bowel gas pattern. 2. Mildly dilated loops of large bowel suggests colonic ileus. 3. No pneumatosis or pneumoperitoneum identified. Electronically signed by: Chele Gaitan M.D. 11/02/2017 7:33 PM Dictated Date/Time: 11/02/2017 7:31 PM The status of this report is Signed. Draft = Not yet reviewed or approved by Radiologist. Signed = Reviewed and approved by Radiologist. Consultations: GI- Dr. Nicole Medication Reconciliation New Medications: Tramadol (Ultram) 50 Mg Tab 50 MG PO Q4H PRN for Pain for 3 Days, #12 TAB Bisacodyl (Bisacodyl EC) 5 Mg Tabec 5 MG PO DAILY PRN for CONSTIPATION for 3 Days Docusate Sodium (Docusate Sodium) 100 Mg Cap 100 MG PO BID for 3 Days, #6 CAP Lidocaine (Lidocaine) 1 Patch Tdsy 1 PATCH TD QAM for 3 Days, #3 Polyethylene (Miralax) 17 Gm Pow 17 GM PO QAM for 3 Days Tamsulosin HCl (Tamsulosin HCl) 0.4 Mg Cap 0.4 MG PO HS for 30 Days, CAP Continued Medications: Albuterol Hfa (Ventolin Hfa) 200 Puffs/88566 Mcg Aers 1-2 PUFFS INH Q4H PRN for SOB/Wheezing, #1 INHALER Aspirin (Aspirin Chewable) 81 Mg Chew 81 MG PO DAILY Atorvastatin (Lipitor) 20 Mg Tab 20 MG PO QPM, TAB Carvedilol (Coreg) 25 Mg Tab 25 MG PO BID, TAB Fluticasone Furoate-Vilanterol (Breo Ellipta) 1 Inh Inh 1 DOSE INH UD PRN for BRONCHITIS Insulin Aspart (Novolog Flexpen) 100 Units/Ml Inj 1 DOSE SQ UD sliding scale Insulin Isophan/Regular (Novolin 70/30) Susp 36 UNITS SC QAM Insulin Isophan/Regular (Novolin 70/30) Susp 56 UNITS SC QPM Lisinopril (Zestril) 10 Mg Tab 10 MG PO QAM, TAB Metformin Hcl (Glucophage) 500 Mg Tab 500 MG PO BID, TAB Multiple Vitamin (Multi Vitamin Daily) 1 Tab Tab 1 TAB PO QAM Discontinued Medications: Amoxicillin (Amoxil) 500 Mg Cap 500 MG PO QID Oxycodone Immediate Rel Tab (Roxicodone Ir) 5 Mg Tab 1 TAB PO Q4H PRN for Severe Pain for 3 Days, #12 TAB Polyethylene Glycol 3350 (Miralax) 1 Pow Pow 17 GM PO DAILY, #527 GM Discharge Exam Review of Systems: Constitutional: No fever, No chills, No sweats, No weakness, No fatigue Eyes: No worsening of vision ENT: No hearing loss Respiratory: No cough, No shortness of breath, No hemoptysis Cardiovascular: No chest pain, No edema, No palpitations Abdomen: No pain, No nausea, No vomiting, No diarrhea, No constipation Musculoskeletal: + joint pain, + muscle pain, No swelling, No calf pain Genitourinary - Male: No hematuria Neurologic: No memory loss, No numbness/tingling Psychiatric: No depression symptoms, No anxiety Endocrine: No fatigue Hematologic / Lymphatic: No abnormal bleeding/bruising Integumentary: No rash, No itch, No new/changing skin lesions Physical Exam: General Appearance: no apparent distress, + obese Eyes: normal inspection, PERRL ENT: hearing grossly normal Neck: supple Respiratory/Chest: no respiratory distress, no accessory muscle use, + decreased breath sounds (throughout, poor inspiratory effore ), + wheezing ( expiratory, throughout ) Cardiovascular: regular rate, rhythm Abdomen / GI: normal bowel sounds, non tender, soft Extremities: no calf tenderness, no pedal edema Neurologic/Psychiatric: alert, normal mood/affect, oriented x 3 Skin: normal color, warm/dry, no rash Hospital Course 67 y/o male with a history of CAD s/p CABG x 3, HTN, HLD, cardiomyopathy, complete heart block s/p bi-ventricular pacer, DM II and GERD who presented with abdominal pain. 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, urinary retention: - NSS at 75 cc/hr - Hold nephrotoxic agents and renally dose medications as appropriate - Renal US unremarkable - Parnell placed and ULICES resolved- removed Parnell on prior to discharge, continue to monitor UOP and need for Parnell at [facility] -- If urinary retention returns, recommend Urology f/u - PSA 0.7 - Flomax 0.4 mg HS Hyponatremia- IMPROVING: Treated w/ IVF Hypotension- RESOLVED: - IVF as above - Held Lisinopril Hyperkalemia, likely secondary to ULICES- RESOLVED: Low potassium diet Recent syncope- STABLE: No acute events on tele L rib fractures 6-9, recent L4-L5, L5-S1 laminectomy: - Roxicodone PRN- try to limit use due to constipation -- Patient did not want Roxicodone, wished to try Tramadol PRN for severe pain instead - Tylenol PRN, Lidoderm patch - Ambulation, encouraged incentive spirometer CAD, s/p CABG, HTN, HLD, cardiomyopathy, complete heart block s/p pacer- STABLE : - Continue Coreg 25 mg PO BID w/ hold parameters, ASA, Lipitor 20 mg HS - Lisinopril on hold due to ULICES- resume at discharge DM II- hgbA1c 7.3% on 09/07 - Hold 70/30 and Metformin- resume at discharge - BSG ACHS and ISS Asthma- STABLE: DuoNebs PRN for SOB/wheezing- continue Ventolin PRN at discharge GERD: Protonix 40 mg daily DVT prophylaxis: TEDs/SCDs, ambulation Code status: LEVEL I, FULL Dispo: Discharge to [facility] Total Time Spent: Greater than 30 minutes This includes examination of the patient, discharge planning, medication reconciliation, and communication with other providers. Discharge Instructions Please refer to the electronic Patient Visit Report (Discharge Instructions) for additional information. Follow-Up Please follow-up with [facility] provider within 24-48 hours Please follow-up with your PCP within 5-7 days after discharge from [facility] Follow-up with GI within 1-2 months Please follow-up/keep all of your subspecialty appointments Additional Copies To Kelin Johnson
== END 2017-11-03 15:20 | DRG 392 ==
LOC: EDBD 14:31 → C.EDC 14:33 → C.MED 18:46 → ENRESERV 19:24
PROVIDERS: ADMIT Internal Medicine; ATTEND Hospitalist
DX: K52.9 Noninfective gastroenteritis and colitis, unspecified (principal); S22.42XA Multiple fractures of ribs, left side, initial encounter for closed fracture; N17.9 Acute kidney failure, unspecified; E87.1 Hypo-osmolality and hyponatremia; K59.03 Drug induced constipation; T40.605A Adverse effect of unspecified narcotics, initial encounter; E87.5 Hyperkalemia; R33.9 Retention of urine, unspecified; I95.9 Hypotension, unspecified; I25.10 Atherosclerotic heart disease of native coronary artery without angina pectoris; I13.10 Hypertensive heart and chronic kidney disease without heart failure, with stage 1 through stage 4 chronic kidney disease, or unspecified chronic kidney disease; E11.9 Type 2 diabetes mellitus without complications; K21.9 Gastro-esophageal reflux disease without esophagitis; N18.3 Chronic kidney disease, stage 3 (moderate); J45.909 Unspecified asthma, uncomplicated; E66.9 Obesity, unspecified; Z79.899 Other long term (current) drug therapy; Z79.4 Long term (current) use of insulin; Z79.82 Long term (current) use of aspirin; Z95.1 Presence of aortocoronary bypass graft; Z95.0 Presence of cardiac pacemaker; Z90.49 Acquired absence of other specified parts of digestive tract; Z68.35 Body mass index [BMI] 35.0-35.9, adult; W19.XXXA Unspecified fall, initial encounter

== ENCOUNTER → 2017-11-12 | Outpatient (CLI) | payer OTHER ==
[~2017-11-12] MED LIST changes: -AMOX500C3 PO; +CLC100 PO; +DLC5 PO; +FLM4 PO; +LDDP5 TD; +MRLP17 PO; -OXYC1TAB3 PO; -POLY335019 PO; -PRED10TA PO
[2017-11-12 13:58] LABS: ALT/SGPT 38 U/L (12-78); AST/SGOT 20 U/L (15-37); BLOOD UREA NITROGEN 8 mg/dl (7-18); CALCIUM 8.9 mg/dl (8.5-10.1); CARBON DIOXIDE 25 mmol/L (21-32); CREATININE 0.89 mg/dl (0.60-1.40); GLUCOSE 199 mg/dl (70-99); POTASSIUM 4.5 mmol/L (3.5-5.1); SODIUM 136 mmol/L (136-145)
[2017-11-12 14:00] LABS: ALKALINE PHOSPHATASE 106 U/L (45-117); TOTAL PROTEIN 7.5 gm/dl (6.4-8.2)
== END | disposition home or self-care (01) ==
LOC: C.LABPVFM 08:33
PROVIDERS: ATTEND Nurse Practitioner
DX: R19.7 Diarrhea, unspecified (principal); R53.1 Weakness

== ENCOUNTER → 2017-11-24 | Outpatient (CLI) | payer OTHER ==
[2017-11-24 13:21] LABS: BASO % 0.6 %; BASO ABS # 0.03 K/uL (0-0.2); EOS % 2.9 %; EOS ABS # 0.15 K/uL (0-0.5); HEMATOCRIT 35.9 % (42-52); HEMOGLOBIN 11.6 g/dL (14.0-18.0); IG# 0.01 K/uL (0.00-0.02); LYMPH % 26.9 %; LYMPH ABS # 1.41 K/uL (1.2-3.4); MEAN CELL VOLUME 89.5 fL (80-100); MEAN CORPUSCULAR HEMOGLOBIN 28.9 pg (25-34); MEAN CORPUSCULAR HGB CONC 32.3 g/dl (32-36); MEAN PLATELET VOLUME 9.9 fL (7.4-10.4); MONO ABS # 0.47 K/uL (0.11-0.59); NEUT % 60.4 %; NEUT ABS # 3.17 K/uL (1.4-6.5); PLATELET COUNT 264 K/uL (130-400); RED CELL DISTRIBUTION WIDTH CV 14.3 % (11.5-14.5); RED CELL DISTRIBUTION WIDTH SD 46.9 fL (36.4-46.3); WHITE BLOOD COUNT 5.24 K/uL (4.8-10.8)
== END | disposition home or self-care (01) ==
LOC: C.LABPVFM 10:44
PROVIDERS: ATTEND Nurse Practitioner
DX: D64.9 Anemia, unspecified (principal)

== ENCOUNTER 2022-05-02 14:13 | Observation (INO) ==
--- NOTE | 2022-05-02 15:00 | XRay Report ---
TWO VIEW CHEST CLINICAL HISTORY: Dyspnea. FINDINGS: PA and lateral chest radiographs are compared to study dated 07/25/2019 and correlated with chest CT dated 11/09/2017. The patient is status post midline sternotomy. A 2-lead cardiac pacemaker i s unchanged in position and partially obscures the left mid chest. The heart is enlarged noting ather osclerotic calcification of the thoracic aorta. The pulmonary vasculature is noncongested. Chronic in terstitial thickening is somewhat of previous. The lungs and pleural spaces are clear. There is no pn eumothorax. The skeletal structures are osteopenic. The bony thorax appears intact. Bilateral shoulde r arthroplasties are in place. Cholecystectomy clips are noted in the right upper quadrant. IMPRESSION: 1. Cardiomegaly and cardiac pacemaker without radiographic evidence of congestive failure. 2. No airspace consolidation or pleural effusion is identified. ACT 112: Negative or not required by law. Electronically signed by: Brendan Foy M.D. 05/02/2022 2:59 PM
[2022-05-02 16:02] LABS: Basophils # (auto) 0.02 K/uL (0-0.2); Basophils % (auto) 0.4 %; Eosinophils # (auto) 0.13 K/uL (0-0.50); Eosinophils % (auto) 2.4 %; Hematocrit (blood only) 38.9 % (40.1-51.0); Immature Granulocytes # (auto) 0.02 K/uL (0.00-0.02); Immature Granulocytes % (auto) 0.4 %; Lymphocytes # (auto) 1.12 K/uL (1.2-3.4); Lymphocytes % (auto) 20.7 %; Mean Corpuscular Hemoglobin 30.1 pg (25.0-34.0); Mean Corpuscular Hgb Conc 33.4 g/dL (32.0-36.0); Monocytes # (auto) 0.48 K/uL (0.24-0.82); Monocytes % (auto) 8.9 %; Neutrophils # (auto) 3.64 K/uL (1.4-6.5); Neutrophils % (auto) 67.2 %; Platelet Count 182 K/uL (130-400); RDW Standard Deviation 39.4 fL (36.4-46.3); Red Blood Count 4.32 M/uL (4.63-6.08); White Blood Count 5.41 K/ul (4.8-10.8)
[2022-05-02 16:23] LABS: Albumin Globulin Ratio 1.4 (0.9-2); Albumin Level 4.2 gm/dl (3.4-5.0); BUN Creatinine Ratio 14.4 (10-20); Bilirubin,Total 0.4 mg/dl (0.2-1.0); Calcium 9.3 mg/dl (8.5-10.1); Creatinine Clr Calc Pharmacy 88.5 ml/min; Est GFR (African American) 89.4 ml/min; Est GFR (Non-African American) 77.1 ml/min; Magnesium 1.8 mg/dl (1.7-2.4); Potassium 4.3 mmol/L (3.5-5.1); Total Protein 7.2 gm/dl (6.0-8.3)
[2022-05-02 16:26] LABS: Partial Thromboplastin Ratio 0.9; Partial Thromboplastin Time 25.6 Seconds (21.0-31.0); Prothrombin Time 10.9 Seconds (9.0-12.0)
[2022-05-02 16:29] LABS: Troponin I High Sensitivity 19.8 pg/ml (0-20)
--- NOTE | 2022-05-02 16:56 | Emergency Department Note ---
History of Present Illness General Chief complaint: Cardiac Assessment Stated complaint: CARDIOLIGIST SENT ME Time Seen by Provider: 05/02/22 16:25 Source: patient Mode of arrival: ambulatory Limitations: no limitations History of Present Illness Provider complaint: Fatigue, referred by cardiology Onset (ago): week(s) This is a 71-year-old male presents emergency department due to increasing fatigue over the last several weeks. Patient has worked at [employer] since the end of last year and typically during his shifts walks anywhere from 9-15,000 steps. He states the cavity associated with his job had never bothered him until a couple of weeks ago when he felt more profoundly fatigued and tired after working 3 days compared to prior. He also felt that he was slightly short of breath. Patient thought perhaps this could be something related to his asthma and uses inhaler. Patient states prior to that he could not recall the last time he used his inhaler. He states his asthma seems to be triggered by allergies including dust. He states he is around that all the time at his job. He states he felt better after being off for several days and then his next string of shifts had the same thing happen again and felt worse. He states he again had several days off, and today tried to work outside around their house, and more quickly felt that sense of profound fatigue again. Patient states he has been using his inhaler multiple times a day over the last several days and does get a brief sense that it is easier to breathe. He denies any change in his diet, and states he avoids salt as well as alcohol. He states he has intermittently noticed leg swelling. Patient is concerned as he recalls the profound fatigue is similar to a prior episode in 2012 where he ended up with a CABG. Patient denies missing any of his usual medications. States he does stay well-hydrated. He states he does follow with Dr. El and Sylvain Victor PA-C in the office. He states he was seen there in the spring and did have an echo which was reported to him as "good". He did call the office today and was referred to the emergency room for additional evaluation. Pt seen during a time of high acuity and national emergency pandemic while wearing PPE. Home Medications Medication Instructions Recorded Confirmed Type carvedilol 25 mg tablet 25 mg PO BID #60 tabs 03/21/19 05/02/22 Rx insulin syringe-needle U-100 1 mL #10 ea 03/21/19 05/02/22 Rx 31 gauge x 5/16" lancets (OneTouch UltraSoft #50 ea 03/21/19 05/02/22 Rx Lancets) pen needle, diabetic 31 gauge x #30 ea 03/21/19 05/02/22 Rx 3/16" (Pen Needle) aspirin 81 mg tablet,delayed 81 mg PO QAM 06/03/19 05/02/22 History release coenzyme Q10 100 mg capsule 100 mg PO QAM 08/17/19 05/02/22 History (CoQ-10) blood-glucose meter #1 ea 08/25/19 05/02/22 Rx blood sugar diagnostic (OneTouch #200 ea 05/22/20 05/02/22 Rx Ultra Blue Test Strip) bupropion HCl 150 mg 24 hr tablet, 150 mg PO QAM #30 tabs 07/12/21 05/02/22 Rx extended release albuterol sulfate 90 mcg/actuation 1 - 2 puff inhalation .EVERY 4-6 05/02/22 05/02/22 History aerosol inhaler (Ventolin HFA) HOURS PRN shortness of breath or wheezing atorvastatin 20 mg tablet 20 mg PO HS 05/02/22 05/02/22 History insulin aspart U-100 100 unit/mL See Rx Instructions .Route .COMPLEX 05/02/22 05/02/22 History (3 mL) subcutaneous pen (Novolog Flexpen U-100 Insulin aspart) insulin human U-100 NPH-regulr See Rx Instructions .Route .COMPLEX 05/02/22 05/02/22 History 70-30 mix 100 unit/mL subcutaneous susp (Novolin 70/30 U-100 Insulin) metformin 500 mg tablet 500 mg PO BID 05/02/22 05/02/22 History Allergies Allergy/AdvReac Type Severity Reaction Status Date / Time adhesive Allergy Unknown REDDENED Verified 05/02/22 19:31 SKIN WITH LIDOCAINE PATCH tramadol Allergy Unknown SEVERE Verified 05/02/22 19:31 DIARRHEA Past Med/Surg History Medical History Anemia Colitis Lumbar stenosis Syncope Surgical History History of back surgery History of coronary artery bypass graft History of laparoscopic cholecystectomy History of lumbar surgery Hx of appendectomy Hx of shoulder surgery Pacemaker Family History Mother Pancreatic cancer Brother Drug abuse Father Cardiac disorder Diabetes Hypertension Denies family history of Ovarian cancer Prostate cancer Myocardial infarction Breast cancer Colorectal cancer Social History Smoking Status: Never smoker Hx Alcohol Use: No Hx Substance Use: No Preferred Language: Kyrgyz Communication Ability: Effective 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 Beliefs That Will Affect Care: None marital status: Current Living Situation: Spouse current occupational status: retired Other Information That Helps Us Care for You: No Feels Safe at Home: Yes Safety Concerns: Feels Safe At This Time caffeine: Yes Dental Care, Regularly: Yes Physical Activity Frequency: Does not Exercise Seatbelt Use: sometimes (Most of the time ) Sunscreen Use: No Assistive Devices: Glasses Review of Systems A total of 10 systems reviewed and were otherwise negative All systems reviewed & are unremarkable except as noted in HPI & below Physical Exam Vital Signs Vital Signs - 24 hr 05/02/22 14:18 05/02/22 16:40 05/02/22 16:40 Temperature 36.8 C Temperature Source Temporal Artery Scan Pulse Rate 85 Pulse Rate [Finger] 80 Pulse Rate from SpO2 Sensor Pulse Rhythm [Finger] Respiratory Rate 20 18 Respiratory Effort / Characteristics Non-Labored Spontaneous Respiratory Depth Normal Respiratory Pattern Regular Blood Pressure 136/71 Blood Pressure [Left Arm] 150/86 H Blood Pressure Mean 92 Blood Pressure Mean [Left Arm] 107 Blood Pressure Position Sitting Pulse Oximetry 97 98 98 Oxygen Delivery Method Room Air Room Air Room Air Sepsis Recent Fever Within 48 Hours No Sepsis New/Unexplained Change in Mental Status No Sepsis Action Taken by Nursing No Action Required 05/02/22 17:41 05/02/22 18:35 05/02/22 18:08 Temperature Temperature Source Pulse Rate 69 62 Pulse Rate [Finger] 67 Pulse Rate from SpO2 Sensor 64 Pulse Rhythm [Finger] Regular Respiratory Rate 15 14 14 Respiratory Effort / Characteristics Non-Labored Respiratory Depth Normal Respiratory Pattern Blood Pressure Blood Pressure [Left Arm] 148/80 H Blood Pressure Mean Blood Pressure Mean [Left Arm] 102 Blood Pressure Position Pulse Oximetry 96 97 Oxygen Delivery Method Room Air Sepsis Recent Fever Within 48 Hours Sepsis New/Unexplained Change in Mental Status Sepsis Action Taken by Nursing 05/02/22 18:10 05/02/22 18:20 05/02/22 18:30 Temperature Temperature Source Pulse Rate 78 78 68 Pulse Rate [Finger] Pulse Rate from SpO2 Sensor Pulse Rhythm [Finger] Respiratory Rate 15 18 19 Respiratory Effort / Characteristics Respiratory Depth Respiratory Pattern Blood Pressure Blood Pressure [Left Arm] Blood Pressure Mean Blood Pressure Mean [Left Arm] Blood Pressure Position Pulse Oximetry Oxygen Delivery Method Sepsis Recent Fever Within 48 Hours Sepsis New/Unexplained Change in Mental Status Sepsis Action Taken by Nursing 05/02/22 18:40 05/02/22 18:50 05/02/22 19:00 Temperature Temperature Source Pulse Rate 66 76 75 Pulse Rate [Finger] Pulse Rate from SpO2 Sensor Pulse Rhythm [Finger] Respiratory Rate 17 15 19 Respiratory Effort / Characteristics Respiratory Depth Respiratory Pattern Blood Pressure Blood Pressure [Left Arm] Blood Pressure Mean Blood Pressure Mean [Left Arm] Blood Pressure Position Pulse Oximetry Oxygen Delivery Method Sepsis Recent Fever Within 48 Hours Sepsis New/Unexplained Change in Mental Status Sepsis Action Taken by Nursing 05/02/22 19:11 05/02/22 19:20 05/02/22 19:30 Temperature Temperature Source Pulse Rate 85 63 74 Pulse Rate [Finger] Pulse Rate from SpO2 Sensor Pulse Rhythm [Finger] Respiratory Rate 25 H 18 16 Respiratory Effort / Characteristics Respiratory Depth Respiratory Pattern Blood Pressure Blood Pressure [Left Arm] Blood Pressure Mean Blood Pressure Mean [Left Arm] Blood Pressure Position Pulse Oximetry Oxygen Delivery Method Sepsis Recent Fever Within 48 Hours Sepsis New/Unexplained Change in Mental Status Sepsis Action Taken by Nursing 05/02/22 19:40 05/02/22 19:50 05/02/22 20:00 Temperature Temperature Source Pulse Rate 74 75 84 Pulse Rate [Finger] Pulse Rate from SpO2 Sensor Pulse Rhythm [Finger] Respiratory Rate 22 13 20 Respiratory Effort / Characteristics Respiratory Depth Respiratory Pattern Blood Pressure Blood Pressure [Left Arm] Blood Pressure Mean Blood Pressure Mean [Left Arm] Blood Pressure Position Pulse Oximetry Oxygen Delivery Method Sepsis Recent Fever Within 48 Hours Sepsis New/Unexplained Change in Mental Status Sepsis Action Taken by Nursing 05/02/22 20:10 Temperature Temperature Source Pulse Rate 80 Pulse Rate [Finger] Pulse Rate from SpO2 Sensor Pulse Rhythm [Finger] Respiratory Rate 16 Respiratory Effort / Characteristics Respiratory Depth Respiratory Pattern Blood Pressure Blood Pressure [Left Arm] Blood Pressure Mean Blood Pressure Mean [Left Arm] Blood Pressure Position Pulse Oximetry Oxygen Delivery Method Sepsis Recent Fever Within 48 Hours Sepsis New/Unexplained Change in Mental Status Sepsis Action Taken by Nursing GENERAL: alert, well appearing, well nourished, no distress, non-toxic EYE EXAM: normal conjunctiva, PERRL and EOM's grossly intact OROPHARYNX: no exudate, no erythema, lips, buccal mucosa, and tongue normal and mucous membranes are moist NECK: supple, no nuchal rigidity, no adenopathy, non-tender LUNGS: Clear to auscultation. Normal chest wall mechanics, no w/r/r HEART: no murmurs, S1 normal and S2 normal ABDOMEN: abdomen soft, non-tender, normo-active bowel sounds, no masses, no rebound or guarding. BACK: Back is symmetrical on inspection and there is no deformity, no midline tenderness, no CVA tenderness. SKIN: no rashes and no bruising UPPER EXTREMITIES: upper extremities are grossly normal. FROM, nml pulses b/l. LOWER EXTREMITIES: No pitting edema. FROM, nml pulses b/l. NEURO EXAM: Normal sensorium, cranial nerves II-XII grossly intact, normal speech, no gross weakness of arms, no gross weakness of legs. Gross sensation intact. Course Course 1819: Discussed with Dr. Post. 1828: Discussed with pt at bedside. Administered Medications Atorvastatin Calcium (Atorvastatin 20 Mg Tab) 20 mg PO HS RICCO Stop: 06/01/22 21:46 Last Admin: 05/02/22 22:21 Dose: 20 mg Documented By: CYNDY Carvedilol (Carvedilol 25 Mg Tab) 25 mg PO BID RICCO Stop: 06/01/22 21:46 Last Admin: 05/02/22 22:21 Dose: 25 mg Documented By: CYNDY Albumin Human (Albumin 25%) 12.5 gm in 50 mls @ 50 mls/hr IV ONE ONE Stop: 05/03/22 01:23 Last Admin: 05/03/22 00:56 Dose: 50 mls/hr Documented By: CYNDY Insulin Aspart (Insulin Aspart Per Unit) 0 units SC ACHS RICCO Stop: 06/01/22 21:46 Last Admin: 05/02/22 22:21 Dose: 3 units Documented By: CYNDY Co-signed By: VK Insulin Glargine (Lantus Per Unit Charge) 5 units SQ HS RICCO Stop: 06/01/22 21:46 Last Admin: 05/02/22 22:22 Dose: 5 units Documented By: CF Co-signed By: VK Discontinued Medications Furosemide (Furosemide Inj 20 Mg/2 Ml Vial) 20 mg IV ONE ONE Stop: 05/03/22 00:25 Last Admin: 05/03/22 00:56 Dose: 20 mg Documented By: CF Ioversol (Optiray 300 500ml) 110 ml IV ONCE ONE Stop: 05/02/22 22:11 Last Admin: 05/02/22 22:10 Dose: 110 ml Documented By: DG Medical Decision Making Differential Diagnosis Differential Diagnosis includes but is not limited to dehydration, stroke, anemia, hypoglycemia, hyponatremia, hypernatremia, urinary tract infection, pneumonia, bronchitis, sepsis, gastroenteritis, additional abdominal pathology, metabolic abnormalities and infections. Medical Records Attestation: I reviewed the patient's medical records. Home Medications Current Medication List: was personally reviewed by me Laboratory Data Attestation: I reviewed the patient's lab results. Result diagrams: 05/02/22 15:47 05/02/22 15:47 Lab Results 05/02/22 05/02/22 05/02/22 Range/Units 15:47 15:47 15:47 WBC 5.41 (4.8-10.8) K/ul RBC 4.32 L (4.63-6.08) M/uL Hgb 13.0 L (14.0-18.0) g/dl Hct 38.9 L (40.1-51.0) % MCV 90.0 (80.0-100.0) fL MCH 30.1 (25.0-34.0) pg MCHC 33.4 (32.0-36.0) g/dL RDW Std Deviation 39.4 (36.4-46.3) fL RDW Coeff of Zane 12.0 (11.5-14.5) % Plt Count 182 (130-400) K/uL MPV 10.0 (9.4-12.4) fL Immature Gran % (Auto) 0.4 % Neut % (Auto) 67.2 % Lymph % (Auto) 20.7 % [place] % (Auto) 8.9 % Eos % (Auto) 2.4 % Baso % (Auto) 0.4 % Neut # (Auto) 3.64 (1.4-6.5) K/uL Lymph # (Auto) 1.12 L (1.2-3.4) K/uL [place] # (Auto) 0.48 (0.24-0.82) K/uL Eos # (Auto) 0.13 (0-0.50) K/uL Baso # (Auto) 0.02 (0-0.2) K/uL Immature Gran # (Auto) 0.02 (0.00-0.02) K/uL PT 10.9 (9.0-12.0) Seconds INR 1.0 (0.9-1.1) APTT 25.6 (21.0-31.0) Seconds PTT Ratio 0.9 D-Dimer (0-500) ug/L FEU Sodium 136 (136-145) mmol/L Potassium 4.3 (3.5-5.1) mmol/L Chloride 102 (98-107) mmol/L Carbon Dioxide 27 (21-32) mmol/L Anion Gap 7 (3-11) BUN 14 (6-23) mg/dl Creatinine 0.97 (0.6-1.4) mg/dl Est Cr Clr Drug Dosing 88.5 ml/min Est GFR ( Amer) 89.4 ml/min Est GFR (Non-Af Amer) 77.1 ml/min BUN/Creatinine Ratio 14.4 (10-20) Glucose 211 H (70-99(Fasting)) mg/dl Calcium 9.3 (8.5-10.1) mg/dl Magnesium 1.8 (1.7-2.4) mg/dl Total Bilirubin 0.4 (0.2-1.0) mg/dl AST 17 (13-39) U/L ALT 23 (7-52) U/L Alkaline Phosphatase 70 (34-104) U/L Troponin I High Sens 19.8 (0-20) pg/ml B-Natriuretic Peptide (0-100) pg/ml Total Protein 7.2 (6.0-8.3) gm/dl Albumin 4.2 (3.4-5.0) gm/dl Globulin 3.0 (2.5-4.0) gm/dl Albumin/Globulin Ratio 1.4 (0.9-2) TSH (0.300-4.500) uIu/ml SARS-CoV-2, RNA, NAAT (NEGATIVE) 05/02/22 05/02/22 05/02/22 Range/Units 15:47 15:47 20:14 WBC (4.8-10.8) K/ul RBC (4.63-6.08) M/uL Hgb (14.0-18.0) g/dl Hct (40.1-51.0) % MCV (80.0-100.0) fL MCH (25.0-34.0) pg MCHC (32.0-36.0) g/dL RDW Std Deviation (36.4-46.3) fL RDW Coeff of Zane (11.5-14.5) % Plt Count (130-400) K/uL MPV (9.4-12.4) fL Immature Gran % (Auto) % Neut % (Auto) % Lymph % (Auto) % [place] % (Auto) % Eos % (Auto) % Baso % (Auto) % Neut # (Auto) (1.4-6.5) K/uL Lymph # (Auto) (1.2-3.4) K/uL [place] # (Auto) (0.24-0.82) K/uL Eos # (Auto) (0-0.50) K/uL Baso # (Auto) (0-0.2) K/uL Immature Gran # (Auto) (0.00-0.02) K/uL PT (9.0-12.0) Seconds INR (0.9-1.1) APTT (21.0-31.0) Seconds PTT Ratio D-Dimer (0-500) ug/L FEU Sodium (136-145) mmol/L Potassium (3.5-5.1) mmol/L Chloride (98-107) mmol/L Carbon Dioxide (21-32) mmol/L Anion Gap (3-11) BUN (6-23) mg/dl Creatinine (0.6-1.4) mg/dl Est Cr Clr Drug Dosing ml/min Est GFR ( Amer) ml/min Est GFR (Non-Af Amer) ml/min BUN/Creatinine Ratio (10-20) Glucose (70-99(Fasting)) mg/dl Calcium (8.5-10.1) mg/dl Magnesium (1.7-2.4) mg/dl Total Bilirubin (0.2-1.0) mg/dl AST (13-39) U/L ALT (7-52) U/L Alkaline Phosphatase (34-104) U/L Troponin I High Sens (0-20) pg/ml B-Natriuretic Peptide 176 H (0-100) pg/ml Total Protein (6.0-8.3) gm/dl Albumin (3.4-5.0) gm/dl Globulin (2.5-4.0) gm/dl Albumin/Globulin Ratio (0.9-2) TSH 2.306 (0.300-4.500) uIu/ml SARS-CoV-2, RNA, NAAT NEGATIVE (NEGATIVE) 05/02/22 Range/Units 20:18 WBC (4.8-10.8) K/ul RBC (4.63-6.08) M/uL Hgb (14.0-18.0) g/dl Hct (40.1-51.0) % MCV (80.0-100.0) fL MCH (25.0-34.0) pg MCHC (32.0-36.0) g/dL RDW Std Deviation (36.4-46.3) fL RDW Coeff of Zane (11.5-14.5) % Plt Count (130-400) K/uL MPV (9.4-12.4) fL Immature Gran % (Auto) % Neut % (Auto) % Lymph % (Auto) % [place] % (Auto) % Eos % (Auto) % Baso % (Auto) % Neut # (Auto) (1.4-6.5) K/uL Lymph # (Auto) (1.2-3.4) K/uL [place] # (Auto) (0.24-0.82) K/uL Eos # (Auto) (0-0.50) K/uL Baso # (Auto) (0-0.2) K/uL Immature Gran # (Auto) (0.00-0.02) K/uL PT (9.0-12.0) Seconds INR (0.9-1.1) APTT (21.0-31.0) Seconds PTT Ratio D-Dimer 690 H* (0-500) ug/L FEU Sodium (136-145) mmol/L Potassium (3.5-5.1) mmol/L Chloride (98-107) mmol/L Carbon Dioxide (21-32) mmol/L Anion Gap (3-11) BUN (6-23) mg/dl Creatinine (0.6-1.4) mg/dl Est Cr Clr Drug Dosing ml/min Est GFR ( Amer) ml/min Est GFR (Non-Af Amer) ml/min BUN/Creatinine Ratio (10-20) Glucose (70-99(Fasting)) mg/dl Calcium (8.5-10.1) mg/dl Magnesium (1.7-2.4) mg/dl Total Bilirubin (0.2-1.0) mg/dl AST (13-39) U/L ALT (7-52) U/L Alkaline Phosphatase (34-104) U/L Troponin I High Sens (0-20) pg/ml B-Natriuretic Peptide (0-100) pg/ml Total Protein (6.0-8.3) gm/dl Albumin (3.4-5.0) gm/dl Globulin (2.5-4.0) gm/dl Albumin/Globulin Ratio (0.9-2) TSH (0.300-4.500) uIu/ml SARS-CoV-2, RNA, NAAT (NEGATIVE) Imaging Data Radiologist's Impression: Chest X-Ray 05/02/22 14:25 TWO VIEW CHEST CLINICAL HISTORY: Dyspnea. FINDINGS: PA and lateral chest radiographs are compared to study dated 07/25/2019 and correlated with chest CT dated 11/09/2017. The patient is status post midline sternotomy. A 2-lead cardiac pacemaker is unchanged in position and partially obscures the left mid chest. The heart is enlarged noting atherosclerotic calcification of the thoracic aorta. The pulmonary vasculature is noncongested. Chronic interstitial thickening is somewhat of previous. The lungs and pleural spaces are clear. There is no pneumothorax. The skeletal structures are osteopenic. The bony thorax appears intact. Bilateral shoulder arthroplasties are in place. Cholecystectomy clips are noted in the right upper quadrant. IMPRESSION: 1. Cardiomegaly and cardiac pacemaker without radiographic evidence of congestive failure. 2. No airspace consolidation or pleural effusion is identified. ACT 112: Negative or not required by law. Electronically signed by: Brendan Foy M.D. 05/02/2022 2:59 PM ECG Data Attestation: I personally reviewed and interpreted this ECG as follows: Indication: + SOB/dyspnea Rate (beats per minute): 71 Rhythm: + other ECG Intervals/blocks: + IVCD and + Prolonged QT ECG [place]: + Normal ECG ST segments: + repolarization abnormalities Additional Comments: paced MDM Narrative An order was placed for continuous cardiac monitoring. The monitor shows a rate of _78_ with __paced__ rhythm. This is a 71-year-old male who presents due to concern for possible recurrent heart problems due to increasing fatigue with any exertion and dyspnea. Patient does have significant cardiac history and is high risk. Patient was afebrile and hemodynamically stable here. Labs been drawn and sent per nursing protocol prior to my evaluation as patient presented on the day of high volume and acuity. Patient's troponin negative, BNP mildly elevated. Chest x-ray reassuring. Patient feels well while at rest, however markedly more easily fatigued with any exertion compared to prior. Case discussed with cardiology as patient had contacted his cardiology office prior to evaluation here. Case then discussed with hospitalist for additional evaluation and management. No ev idence of acute coronary syndrome while in the emergency room, however symptoms are concerning for possible evolving directive coronary artery disease. No evidence of overt CHF. I do not suspect PE or occult infection at this time. Impression & Plan Dyspnea, Fatigue Discharge Plan Visit Data Chief Complaint: Cardiac Assessment Stated Complaint: CARDIOLIGIST SENT ME ED Provider: Kortney Arroyo Discharge Problem: Dyspnea, Fatigue Patient Disposition: Admitted As Inpatient Discharge Instructions Interventions: ED Discharge Assessment Last Done: 05/02/22 21:42
--- NOTE | 2022-05-02 20:25 | History & Physical Report ---
Date of Service May 02, 2022 Assessment & Plan (1) SOB (shortness of breath): Plan: hx chronic diastolic heart failure Trace pleural effusions on CT chest with abnormal BNP Likely secondary to mild CHF hx CAD status post CABG/PVD hx PPM hypertension, slightly hyperlipidemia on statin Rx DM2, on oral medications with intermittent insulin use, reasonable control as of recent hemoglobin A1c of 7.26 March 2022 chronic anemia, hemoglobin at baseline OBS PCU Lasix 1 dose now Strict I/Os, daily weights, CHF education Update TTE, Cardiology consult Re: Mild CHF Basal bolus insulin, ISS BG goal 1 10-1 40, carb count coverage DVT prophylaxis. Lovenox subcu Full code Text document was generated using [employer] voice recognition software. It may contain grammatical or spelling errors. Kindly contact undersigned for clarification of any documentation item in question. History of Present Illness Chief Complaint: Worsening shortness of breath, sent by college counselor Primary Care Provider: Facundo Dean DO History obtained from patient, family, and records. Medical history significant for chronic diastolic heart failure (EF 55%, TTE 2020), CAD status post CABG, PVD, hx PPM, hypertension, hyperlipidemia, bronchial asthma, DM2, on oral medications with intermittent insulin use, chronic anemia (baseline hemoglobin 12-13 ), melanoma status post surgery. Last confinement 2017 under Orthopedics service for elective right shoulder surgery. Patient with increasing fatigue, exertional SOB the last few weeks. 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 Intermittent bilateral leg swelling. Patient denies chest pain. No unusual cough symptoms. No actual wheezing at home. Some relief of shortness of breath with albuterol inhaler use. Patient unaware of snoring during sleep. Patient called similar symptoms preceding CABG surgery in 2012. Patient directed to ER by cardiology provider after patient communicated patient symptoms over the phone. Medical History as above Surgical History : CABG, carpal tunnel surgery, PPM, cataract surgery, back surgery, cholecystectomy, left shoulder surgery, appendectomy Family History : DM, heart disease, HCV Personal/Social history : Non-smoker, no EtOH intake, [employer] employee Allergies Allergy/AdvReac Type Severity Reaction Status Date / Time adhesive Allergy Unknown REDDENED Verified 05/02/22 19:31 SKIN WITH LIDOCAINE PATCH tramadol Allergy Unknown SEVERE Verified 05/02/22 19:31 DIARRHEA Home Medications Medication Instructions Recorded Confirmed Type carvedilol 25 mg tablet 25 mg PO BID #60 tabs 03/21/19 05/02/22 Rx insulin syringe-needle U-100 1 mL #10 ea 03/21/19 05/02/22 Rx 31 gauge x 5/16" lancets (OneTouch UltraSoft #50 ea 03/21/19 05/02/22 Rx Lancets) pen needle, diabetic 31 gauge x #30 ea 03/21/19 05/02/22 Rx 3/16" (Pen Needle) aspirin 81 mg tablet,delayed 81 mg PO QAM 06/03/19 05/02/22 History release coenzyme Q10 100 mg capsule 100 mg PO QAM 08/17/19 05/02/22 History (CoQ-10) blood-glucose meter #1 ea 08/25/19 05/02/22 Rx blood sugar diagnostic (OneTouch #200 ea 05/22/20 05/02/22 Rx Ultra Blue Test Strip) bupropion HCl 150 mg 24 hr tablet, 150 mg PO QAM #30 tabs 07/12/21 05/02/22 Rx extended release albuterol sulfate 90 mcg/actuation 1 - 2 puff inhalation .EVERY 4-6 05/02/22 05/02/22 History aerosol inhaler (Ventolin HFA) HOURS PRN shortness of breath or wheezing atorvastatin 20 mg tablet 20 mg PO HS 05/02/22 05/02/22 History insulin aspart U-100 100 unit/mL See Rx Instructions .Route .COMPLEX 05/02/22 05/02/22 History (3 mL) subcutaneous pen (Novolog Flexpen U-100 Insulin aspart) insulin human U-100 NPH-regulr See Rx Instructions .Route .COMPLEX 05/02/22 05/02/22 History 70-30 mix 100 unit/mL subcutaneous susp (Novolin 70/30 U-100 Insulin) metformin 500 mg tablet 500 mg PO BID 05/02/22 05/02/22 History Past Med/Surg History Medical History Anemia Colitis Lumbar stenosis Syncope Surgical History History of back surgery History of coronary artery bypass graft History of laparoscopic cholecystectomy History of lumbar surgery Hx of appendectomy Hx of shoulder surgery Pacemaker Family History Mother Pancreatic cancer Brother Drug abuse Father Cardiac disorder Diabetes Hypertension Denies family history of Ovarian cancer Prostate cancer Myocardial infarction Breast cancer Colorectal cancer Social History Smoking Status: Never smoker Hx Alcohol Use: No Hx Substance Use: No Preferred Language: Kazakh Communication Ability: Effective Will Call Clerk Required: No Beliefs That Will Affect Care: None marital status: Current Living Situation: Spouse current occupational status: retired Other Information That Helps Us Care for You: No Feels Safe at Home: Yes Safety Concerns: Feels Safe At This Time caffeine: Yes Dental Care, Regularly: Yes Physical Activity Frequency: Does not Exercise Seatbelt Use: sometimes (Most of the time ) Sunscreen Use: No Assistive Devices: Glasses Review of Systems Review of Systems: As per HPI, all other systems reviewed and negative Physical Exam Physical Exam: GENERAL: Comfortable, pleasant, obese, no respiratory distress SKIN: Normal color, warm HEENT: [place] palpebral conjunctivae, no ptosis, moist buccal mucosa NECK : Supple, no tenderness CHEST : Decreased breath sounds, no tenderness HEART : RRR, no obvious murmurs ABDOMEN: Some distention, nontender EXTREMITIES : Minimal LE swelling, no LE tenderness, no other conspicuous deformities noted NEUROLOGIC : Coherent, no facial asymmetry, no other gross focality Results & Data Results & Data ([facility]) Vital Signs (Past 12 Hours) Vital Signs Temp Pulse Pulse Resp BP BP Pulse Ox 05/02/22 20:10 80 16 05/02/22 20:00 84 20 05/02/22 19:50 75 13 05/02/22 19:40 74 22 05/02/22 19:30 74 16 05/02/22 19:20 63 18 05/02/22 19:11 85 25 H 05/02/22 19:00 75 19 05/02/22 18:50 76 15 05/02/22 18:40 66 17 05/02/22 18:30 68 19 05/02/22 18:20 78 18 05/02/22 18:10 78 15 05/02/22 18:08 62 14 05/02/22 18:35 67 14 148/80 H 97 05/02/22 17:41 69 15 96 05/02/22 16:40 98 05/02/22 16:40 80 18 150/86 H 98 05/02/22 14:18 36.8 C 85 20 136/71 97 O2 Del Method 05/02/22 20:10 05/02/22 20:00 05/02/22 19:50 05/02/22 19:40 05/02/22 19:30 05/02/22 19:20 05/02/22 19:11 05/02/22 19:00 05/02/22 18:50 05/02/22 18:40 05/02/22 18:30 05/02/22 18:20 05/02/22 18:10 05/02/22 18:08 05/02/22 18:35 Room Air 05/02/22 17:41 05/02/22 16:40 Room Air 05/02/22 16:40 Room Air 05/02/22 14:18 Room Air Laboratory Results Laboratory Results WBC 5.41 K/ul (4.8-10.8) 05/02/22 15:47 RBC 4.32 M/uL (4.63-6.08) L 05/02/22 15:47 Hgb 13.0 g/dl (14.0-18.0) L 05/02/22 15:47 Hct 38.9 % (40.1-51.0) L 05/02/22 15:47 MCV 90.0 fL (80.0-100.0) 05/02/22 15:47 MCH 30.1 pg (25.0-34.0) 05/02/22 15:47 MCHC 33.4 g/dL (32.0-36.0) 05/02/22 15:47 RDW Std Deviation 39.4 fL (36.4-46.3) 05/02/22 15:47 RDW Coeff of Zane 12.0 % (11.5-14.5) 05/02/22 15:47 Plt Count 182 K/uL (130-400) 05/02/22 15:47 MPV 10.0 fL (9.4-12.4) 05/02/22 15:47 Immature Gran % (Auto) 0.4 % 05/02/22 15:47 Neut % (Auto) 67.2 % 05/02/22 15:47 Lymph % (Auto) 20.7 % 05/02/22 15:47 [place] % (Auto) 8.9 % 05/02/22 15:47 Eos % (Auto) 2.4 % 05/02/22 15:47 Baso % (Auto) 0.4 % 05/02/22 15:47 Neut # (Auto) 3.64 K/uL (1.4-6.5) 05/02/22 15:47 Lymph # (Auto) 1.12 K/uL (1.2-3.4) L 05/02/22 15:47 [place] # (Auto) 0.48 K/uL (0.24-0.82) 05/02/22 15:47 Eos # (Auto) 0.13 K/uL (0-0.50) 05/02/22 15:47 Baso # (Auto) 0.02 K/uL (0-0.2) 05/02/22 15:47 Immature Gran # (Auto) 0.02 K/uL (0.00-0.02) 05/02/22 15:47 PT 10.9 Seconds (9.0-12.0) 05/02/22 15:47 INR 1.0 (0.9-1.1) 05/02/22 15:47 APTT 25.6 Seconds (21.0-31.0) 05/02/22 15:47 PTT Ratio 0.9 05/02/22 15:47 Sodium 136 mmol/L (136-145) 05/02/22 15:47 Potassium 4.3 mmol/L (3.5-5.1) 05/02/22 15:47 Chloride 102 mmol/L (98-107) 05/02/22 15:47 Carbon Dioxide 27 mmol/L (21-32) 05/02/22 15:47 Anion Gap 7 (3-11) 05/02/22 15:47 BUN 14 mg/dl (6-23) 05/02/22 15:47 Creatinine 0.97 mg/dl (0.6-1.4) 05/02/22 15:47 Est Cr Clr Drug Dosing 88.5 ml/min 05/02/22 15:47 Est GFR ( Amer) 89.4 ml/min 05/02/22 15:47 Est GFR (Non-Af Amer) 77.1 ml/min 05/02/22 15:47 BUN/Creatinine Ratio 14.4 (10-20) 05/02/22 15:47 Glucose 211 mg/dl (70-99(Fasting)) H 05/02/22 15:47 Calcium 9.3 mg/dl (8.5-10.1) 05/02/22 15:47 Magnesium 1.8 mg/dl (1.7-2.4) 05/02/22 15:47 Total Bilirubin 0.4 mg/dl (0.2-1.0) 05/02/22 15:47 AST 17 U/L (13-39) 05/02/22 15:47 ALT 23 U/L (7-52) 05/02/22 15:47 Alkaline Phosphatase 70 U/L (34-104) 05/02/22 15:47 Troponin I High Sens 19.8 pg/ml (0-20) 05/02/22 15:47 B-Natriuretic Peptide 176 pg/ml (0-100) H 05/02/22 15:47 Total Protein 7.2 gm/dl (6.0-8.3) 05/02/22 15:47 Albumin 4.2 gm/dl (3.4-5.0) 05/02/22 15:47 Globulin 3.0 gm/dl (2.5-4.0) 05/02/22 15:47 Albumin/Globulin Ratio 1.4 (0.9-2) 05/02/22 15:47 TSH 2.306 uIu/ml (0.300-4.500) 05/02/22 15:47 Impressions Chest X-Ray 05/02/22 14:25 TWO VIEW CHEST CLINICAL HISTORY: Dyspnea. FINDINGS: PA and lateral chest radiographs are compared to study dated 07/25/2019 and correlated with chest CT dated 11/09/2017. The patient is status post midline sternotomy. A 2-lead cardiac pacemaker is unchanged in position and partially obscures the left mid chest. The heart is enlarged noting atherosclerotic calcification of the thoracic aorta. The pulmonary vasculature is noncongested. Chronic interstitial thickening is somewhat of previous. The lungs and pleural spaces are clear. There is no pneumothorax. The skeletal structures are osteopenic. The bony thorax appears intact. Bilateral shoulder arthroplasties are in place. Cholecystectomy clips are noted in the right upper quadrant. IMPRESSION: 1. Cardiomegaly and cardiac pacemaker without radiographic evidence of congestive failure. 2. No airspace consolidation or pleural effusion is identified. ACT 112: Negative or not required by law. Electronically signed by: Brendan Foy M.D. 05/02/2022 2:[address] chest : 1. No pulmonary emboli identified. 2. Bronchial wall thickening suggestive of bronchitis or reactive airway disease. 3. Trace pleural effusions. 4. No airspace consolidation typical for pneumonia. EKG as per my interpretation : Rate 70, paced rhythm Code Status & VTE Plan VTE Prophylaxis Plan VTE Prophylaxis will be ordered: Yes
[2022-05-02 20:58] LABS: D Dimer 690 ug/L FEU (0-500)
[2022-05-02] MEDS ORDERED: DEXTROSE 50% 50 ML SYRINGE IV PRN (21:47)
[2022-05-02] MEDS ORDERED: ACETAMINOPHEN 325 MG TAB PO PRN (21:47)
[2022-05-02] MEDS ORDERED: PROMETHAZINE HCL 12.5 MG in SODIUM CHLORIDE 0.9% 50 ML IV PRN (21:47)
[2022-05-02] MEDS ORDERED: GLUCAGON FOR INJ 1 MG VIAL SQ PRN (21:47)
[2022-05-02] MEDS ORDERED: LANTUS PER UNIT CHARGE SQ SCH (21:47)
[2022-05-02] MEDS ORDERED: GLUCOSE 40% GEL 15 GM TUBE PO PRN (21:47)
[2022-05-02] MEDS ORDERED: GLUCOSE 10 TAB/TUBE PO PRN (21:47)
[2022-05-02] MEDS ORDERED: oxyCODONE HCL IR 5 MG TAB (IMMEDIATE RELEASE) PO PRN (21:47)
[2022-05-02] MEDS ORDERED: ATORVASTATIN 20 MG TAB PO SCH (21:47)
[2022-05-02] MEDS ORDERED: CARBOHYDRATES FOR HYPOGLYCEMIA PO PRN (21:47)
--- NOTE | 2022-05-02 21:56 | Electrocardiogram Report ---
Test Reason : Blood Pressure : / mmHG Vent. Rate : 071 BPM Atrial Rate : 071 BPM P-R Int : 170 ms QRS Dur : 184 ms QT Int : 454 ms P-R-T Axes : 075 115 -27 degrees QTc Int : 493 ms Atrial-sensed ventricular-paced rhythm with occasional Premature ventricular complexes Abnormal ECG When compared with ECG of 30-OCT-2017 14:40, No significant change Confirmed by Alfonso Adam ([id number]) on 05/02/2022 9:55:46 PM Referred By: Confirmed By:Alfonso Adam
[2022-05-02] MEDS ORDERED: OPTIRAY 300 500mL IV ONE (22:10)
[2022-05-02] MEDS: INSULIN ASPART PER UNIT SC SCH (22:21)
[2022-05-02] MEDS: carvediloL 25 MG TAB PO SCH (22:21)
--- NOTE | 2022-05-02 22:40 | CT Scan Report ---
CT angio chest PE protocol CT DOSE: 866.87 mGy.cm HISTORY: 71 years-old Male with sob. Acute shortness of breath TECHNIQUE: Multiple CTA images of the chest were obtained after the intravenous administration of 110 ml Optiray. Coronal and sagittal MIPS were obtained from the axial data set and were submitted for review. All measurements were obtained according to NASCET criteria. A dose lowering technique was u tilized adhering to the principles of ALARA. COMPARISON: Chest CT 10/30/2017 FINDINGS: CTA: Mild cardiomegaly. Left subclavian pacer. Prior median sternotomy with CABG. Extensive [place] coronar y artery calcifications. Atherosclerosis of the thoracic aorta without aneurysm. Patency of the image d great vessels. Unremarkable pulmonary artery. No filling defects identified to suggest thromboembol ic disease. CT CHEST: Unremarkable thyroid. Subcentimeter borderline enlarged mediastinal lymph nodes measure up to 9 mm wh ich have increased in size from the prior study and are nonspecific. Trace pleural effusions. No pneumothorax, pleural effusion, airspace consolidation or overt pulmonary edema. There are no suspicious pulmonary nodules or masses identified. Mild nonspecific bilateral br onchial wall thickening. No acute process of the imaged upper abdomen. Cholecystectomy. There are a f ew scattered subcentimeter cysts noted within the right hepatic lobe. Mild colonic fecal retention. U nremarkable soft tissues. Bilateral shoulder arthroplasties. Bones appear grossly intact. 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 IMPRESSION: 1. No pulmonary emboli identified. 2. Bronchial wall thickening suggestive of bronchitis or reactive airway disease. 3. Trace pleural effusions. 4. No airspace consolidation typical for pneumonia. ACT 112: Negative or not required by law. The above report was generated using voice recognition software. It may contain grammatical, syntax o r spelling errors. Electronically signed by: Vitaliy Gaitan M.D. 05/02/2022 10:38 PM
[2022-05-03] MEDS ORDERED: ALBUMIN 25% 12.5 GM/50 ML VIAL IV ONE (00:24)
[2022-05-03] MEDS ORDERED: FUROSEMIDE INJ 20 MG/2 ML VIAL IV ONE (00:24)
[2022-05-03] MEDS ORDERED: XOPENEX/ATROVENT 1.25mg/0.5MG NEB COMBO NEB PRN (00:26)
[2022-05-03] MEDS ORDERED: guaiFENesin SUGAR FREE 200 MG/10 ML UDC PO PRN (00:27)
[2022-05-03] MEDS ORDERED: LEVALBUTEROL 1.25MG/0.5ML NEB INH PRN (00:30)
[2022-05-03] MEDS ORDERED: IPRATROPIUM BROMIDE NEB SOLN 0.02% 2.5 ML VIAL INH PRN (00:30)
[2022-05-03 06:34] LABS: Basophils # (auto) 0.02 K/uL (0-0.2); Basophils % (auto) 0.4 %; Eosinophils # (auto) 0.08 K/uL (0-0.50); Eosinophils % (auto) 1.8 %; Hematocrit (blood only) 37.4 % (40.1-51.0); Hemoglobin 12.5 g/dl (14.0-18.0); Immature Granulocytes # (auto) 0.01 K/uL (0.00-0.02); Immature Granulocytes % (auto) 0.2 %; Lymphocytes # (auto) 1.04 K/uL (1.2-3.4); Lymphocytes % (auto) 23.3 %; Mean Corpuscular Hemoglobin 30.2 pg (25.0-34.0); Mean Corpuscular Hgb Conc 33.4 g/dL (32.0-36.0); Mean Corpuscular Volume 90.3 fL (80.0-100.0); Monocytes # (auto) 0.45 K/uL (0.24-0.82); Monocytes % (auto) 10.1 %; Neutrophils # (auto) 2.86 K/uL (1.4-6.5); Neutrophils % (auto) 64.2 %; Platelet Count 161 K/uL (130-400); RDW Coefficient of Variation 12.1 % (11.5-14.5); RDW Standard Deviation 39.8 fL (36.4-46.3); Red Blood Count 4.14 M/uL (4.63-6.08); White Blood Count 4.46 K/ul (4.8-10.8)
[2022-05-03 07:11] LABS: BUN Creatinine Ratio 15.7 (10-20); Calcium 9.4 mg/dl (8.5-10.1); Creatinine Clr Calc Pharmacy 95.4 ml/min; Est GFR (African American) 98.3 ml/min; Est GFR (Non-African American) 84.8 ml/min
--- NOTE | 2022-05-03 07:17 | Ultrasound Report ---
BILATERAL LOWER EXTREMITY VENOUS DOPPLER HISTORY: Acute pain and swelling of the lower legs leg swelling COMPARISON STUDY: Doppler study 08/13/2017. FINDINGS: There is normal compressibility, flow, and augmentation within the bilateral lower extremit y deep venous systems. IMPRESSION: No DVT within the right or left lower extremity. ACT 112: Negative or not required by law. Electronically signed by: Vitaliy Gaitan M.D. 05/03/2022 7:15 AM
[2022-05-03] MEDS: INSULIN ASPART PER UNIT SC SCH ×2 (08:40→12:17)
[2022-05-03] MEDS: carvediloL 25 MG TAB PO SCH (08:43)
[2022-05-03] MEDS ORDERED: buPROPion XL 150 MG TABCR PO SCH (09:00)
[2022-05-03] MEDS ORDERED: ASPIRIN 81 MG ECTAB PO SCH (09:00)
[2022-05-03] MEDS ORDERED: ENOXAPARIN INJ 40 MG/0.4 ML SYR SQ SCH (09:00)
--- NOTE | 2022-05-03 09:20 | Cardiology Consultation ---
Date of Consultation May 03, 2022 Assessment & Plan (1) Fatigue: (2) Dyspnea: -Patient presents with symptoms of generalized fatigue, shortness of breath. 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 Notes taking his inhaler more times in the last few weeks than he has in months. Denies syncope or near syncope. Denies yelena angina. Notes trace lower extremity edema as of recently. -Patient specifically concerned because he recalls having debilitating fatigue leading up to his cardiac catheterization and CABG in 2012. I did however go back and review the history and physical performed at the time of his cardiac catheterization at that time his chief complaint was recorded to be exertional shortness of breath with chest tightness that radiated to his jaw. He certainly is not complaining of such symptoms now. -Echocardiogram performed today reveals mild global left ventricular hypokinesis, ejection fraction of 40%, compared to 55% noted at time of outpatient study in 2020. He had a nonischemic response to nuclear stress testing in 2019. Per review of records, the test was ordered for fatigue complaints similar to that which was noted now. The patient has been on high-dose carvedilol for years. Lisinopril 10 mg daily discontinued in July, due to concerns of high potassium. -I question if his fatigue may be related to suboptimal rate response with his biventricular pacemaker. -With regards to interval subtle decrease in his ejection fraction, this could be due to ischemia, or other. He does not examine as if he is volume overloaded although he does note recent subtle lower extremity edema which she feels is new. Medication adjustments: Continue carvedilol 25 mg twice daily, future considerations include transitioning to metoprolol see if this helps with his energy levels. Start furosemide 20 mg 3 days/week on the days he does not work. Outpatient Lexiscan nuclear stress test. I will arrange this with our office. Patient stable for discharge from cardiac perspective. He is agreeable with this plan. History of Present Illness Attending Physician: Franklin Hayes MD History of Present Illness Hoang Garcia is a 71-year-old male seen in cardiology consultation per the request of Dr. Bingham for the evaluation of fatigue and dyspnea on exertion. Patient's most recent outpatient cardiology follow-up visit had been with Sylvain Victor PA-C of our practice in Dec, 2021. At that time a stable degree of exertional dyspnea was described. The patient describes himself as being physically active. 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 Most recently he has been working 4 days/week, and typically completes 10,000 steps during his shift. He notes subjectively less endurance over the last 3 to 4 weeks. He feels like he can barely make it to his car at the end of his shift. 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 He feels like these are the symptoms that were present prior to his bypass surgery. He also notes recent trace to mild lower extremity edema. He therefore presented for evaluation. EKG performed 05/02/2022 revealed sinus rhythm with atrial sensing, ventricular paced rhythm consistent with his history of a biventricular pacemaker. 1 PVC noted. TSH within normal limits. High- sensitivity troponin negative x1. Chest x-ray without evidence of congestive heart failure. CT angiogram of the chest performed in follow-up of elevated D- dimer revealing no pulmonary emboli, bronchial wall thickening suggestive of bronchitis reactive airway disease noted in radiology report as well as trace pleural effusions. Past Medical and Surgical History: 1.Episode of syncope in 2008, in the setting of observed conduction system disease as well as multiple cardiac risk factors. Patient referred for cardiac catheterization at [facility], undergoing cardiac MRI showing the absence of ischemia or scar favoring the diagnosis of nonischemic cardiomyopathy with ejection fraction of 40%. 2.Status post electrophysiology study on November 02, 2008 demonstrating normal AV node function with infrahisian conduction system disease with prolonged H-V interval for 86 msec statu spost dual chamber pacemaker implantation 3.Presentation in March 2013 with classic angina symptoms, diagnostic cardiac catheterization on 04/22/2013 at [facility] with Dr. William demonstrating multivessel CAD including left main stenosis, mid LAD and ostial diagonal stenosis, and proximal left circumflex stenosis with an LVEF of 35% and mildly elevated left ventricular end diastolic pressure. 4.Due to poor EF, Mr. Garcia underwent intra-aortic balloon pump insertion and device upgrate to a biventricular pacemaker (without ICD) piror to undergoing off-pump CABG x 3 on April 29, 2013, receiving a MENDOZA to the LAD and separate SVG's from the aorta to the circumflex coronary artery and diagonal branch. 5.Status post April 10, 2021 generator exchange left (normal LV function, no indication to upgrade to ICD) 6.Type II diabetes mellitus with neuropathy 7.Hypertension 8.Dyslipidemia 9.Chronic anemia 10.Melenoma 11.Diverticulitis, July 2019 12.History of acute cholecystitis and pancreatitis, status post laparoscopic cholecystectomy 13.Lumbar spine stenosis status post surgical intervention on 06/15/2017 14.Appendectomy 15.Shoulder surgeries, bilateral. 16.Carpal tunnel surgery, August 20, 2012 Family History: Father had CAD, carotid occlusive disease, thyroid disease, and diabetes mellitus. He at 72. Mother with pancreatic cancer 68. Social History: Nonsmoker. No alcohol. No illegal drug use. Allergies Allergy/AdvReac Type Severity Reaction Status Date / Time adhesive Allergy Unknown REDDENED Verified 05/02/22 19:31 SKIN WITH LIDOCAINE PATCH tramadol Allergy Unknown SEVERE Verified 05/02/22 19:31 DIARRHEA Home Medications Medication Instructions Recorded Confirmed Type carvedilol 25 mg tablet 25 mg PO BID #60 tabs 03/21/19 05/02/22 Rx insulin syringe-needle U-100 1 mL #10 ea 03/21/19 05/02/22 Rx 31 gauge x 5/16" lancets (VerdezyneTouch UltraSoft #50 ea 03/21/19 05/02/22 Rx Lancets) pen needle, diabetic 31 gauge x #30 ea 03/21/19 05/02/22 Rx 3/16" (Pen Needle) aspirin 81 mg tablet,delayed 81 mg PO QAM 06/03/19 05/02/22 History release coenzyme Q10 100 mg capsule 100 mg PO QAM 08/17/19 05/02/22 History (CoQ-10) blood-glucose meter #1 ea 08/25/19 05/02/22 Rx blood sugar diagnostic (VerdezyneTouch #200 ea 05/22/20 05/02/22 Rx Ultra Blue Test Strip) bupropion HCl 150 mg 24 hr tablet, 150 mg PO QAM #30 tabs 07/12/21 05/02/22 Rx extended release albuterol sulfate 90 mcg/actuation 1 - 2 puff inhalation .EVERY 4-6 05/02/22 05/02/22 History aerosol inhaler (Ventolin HFA) HOURS PRN shortness of breath or wheezing atorvastatin 20 mg tablet 20 mg PO HS 05/02/22 05/02/22 History insulin aspart U-100 100 unit/mL See Rx Instructions .Route .COMPLEX 05/02/22 05/02/22 History (3 mL) subcutaneous pen (Novolog Flexpen U-100 Insulin aspart) insulin human U-100 NPH-regulr See Rx Instructions .Route .COMPLEX 05/02/22 05/02/22 History 70-30 mix 100 unit/mL subcutaneous susp (Novolin 70/30 U-100 Insulin) metformin 500 mg tablet 500 mg PO BID 05/02/22 05/02/22 History Patient History Medical History Anemia Colitis Lumbar stenosis Syncope Surgical History History of back surgery History of coronary artery bypass graft History of laparoscopic cholecystectomy History of lumbar surgery Hx of appendectomy Hx of shoulder surgery Pacemaker Family History Mother Pancreatic cancer Brother Drug abuse Father Cardiac disorder Diabetes Hypertension Denies family history of Ovarian cancer Prostate cancer Myocardial infarction Breast cancer Colorectal cancer Social History Smoking Status: Never smoker Hx Alcohol Use: No Hx Substance Use: No Preferred Language: [place] Communication Ability: Effective Medicine Man Required: No Beliefs That Will Affect Care: None marital status: Current Living Situation: Spouse current occupational status: retired Other Information That Helps Us Care for You: No Feels Safe at Home: Yes Safety Concerns: Feels Safe At This Time caffeine: Yes Dental Care, Regularly: Yes Physical Activity Frequency: Does not Exercise Seatbelt Use: sometimes (Most of the time ) Sunscreen Use: No Assistive Devices: Glasses Review of Systems Review of Systems: All systems reviewed & are unremarkable except as noted in HPI & below Physical Exam Physical Exam: Temp Pulse Resp BP Pulse Ox O2 Del Method 37.0 C 66 18 115/65 95 05/03/22 11:14 05/03/22 11:14 05/03/22 11:14 05/03/22 11:14 05/03/22 11:14 05/03/22 11:14 Constitutional: WD/WN, vitals as above Respiratory: normal respiratory effort, lungs clear to auscultation Cardiovascular: RRR, no murmur, no edema Gastrointestinal (Abdomen): normal bowel sounds, soft, nontender, no hepatosplenomegaly Neurologic: PERRL, EOMI, accommodation nl, no face palsy, no dysarthria Results & Data ([facility]) Diagnostic Findings Most recent device interrogation took place 02/10/2022: Generator change 04/10/2021 Atrial pacing 16.7% of time Patient biventricular paced 92.2% of the time, thoracic impedance was normal suggesting normal fluid status at that time Generator longevity 6.5 years.
--- NOTE | 2022-05-03 15:29 | Discharge Summary ---
Date of Service May 03, 2022 Admission HPI Per Admitting Provider History obtained from patient, family, and records. Medical history significant for chronic diastolic heart failure (EF 55%, TTE 2020), CAD status post CABG, PVD, hx PPM, hypertension, hyperlipidemia, bronchial asthma, DM2, on oral medications with intermittent insulin use, chronic anemia (baseline hemoglobin 12-13 ), melanoma status post surgery. Last confinement 2017 under Orthopedics service for elective right shoulder surgery. Patient with increasing fatigue, exertional SOB the last few weeks. 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 Intermittent bilateral leg swelling. Patient denies chest pain. No unusual cough symptoms. No actual wheezing at home. Some relief of shortness of breath with albuterol inhaler use. Patient unaware of snoring during sleep. Patient called similar symptoms preceding CABG surgery in 2012. Patient directed to ER by cardiology provider after patient communicated patient symptoms over the phone. Medical History as above Surgical History : CABG, carpal tunnel surgery, PPM, cataract surgery, back surgery, cholecystectomy, left shoulder surgery, appendectomy Family History : DM, heart disease, HCV Personal/Social history : Non-smoker, no EtOH intake, [employer] employee Admission Exam Per Admitting Provider GENERAL: Comfortable, pleasant, obese, no respiratory distress SKIN: Normal color, warm HEENT: [place] palpebral conjunctivae, no ptosis, moist buccal mucosa NECK : Supple, no tenderness CHEST : Decreased breath sounds, no tenderness HEART : RRR, no obvious murmurs ABDOMEN: Some distention, nontender EXTREMITIES : Minimal LE swelling, no LE tenderness, no other conspicuous deformities noted NEUROLOGIC : Coherent, no facial asymmetry, no other gross focality Principal Diagnosis 35 minutes Discharge Exam General- No acute distress Head- atraumatic Eyes- PERRL, EOMI, ENT- oropharynx clear Neck- supple, no JVD Lungs- clear to auscultation Heart- regular rhythm; no murmur Abdomen- normal bowel sounds, soft, nontender Extremities- no calf tenderness, +edema Neuro- alert, oriented x 3; PERRL, EOMI; no facial palsy; no dysarthria Skin- warm & dry Discharge Data Allergies Allergy/AdvReac Type Severity Reaction Status Date / Time adhesive Allergy Unknown REDDENED Verified 05/02/22 19:31 SKIN WITH LIDOCAINE PATCH tramadol Allergy Unknown SEVERE Verified 05/02/22 19:31 DIARRHEA Consultations 05/02/22 19:19 ED Decision to Admit Stat 05/03/22 00:26 Consult Cardiology Routine Ordered Studies 05/02/22 21:05 CT angio chest PE protocol Stat US venous doppler LE BI Urgent Laboratory Results WBC 4.46 K/ul (4.8-10.8) L 05/03/22 05:36 RBC 4.14 M/uL (4.63-6.08) L 05/03/22 05:36 Hgb 12.5 g/dl (14.0-18.0) L 05/03/22 05:36 Hct 37.4 % (40.1-51.0) L 05/03/22 05:36 MCV 90.3 fL (80.0-100.0) 05/03/22 05:36 MCH 30.2 pg (25.0-34.0) 05/03/22 05:36 MCHC 33.4 g/dL (32.0-36.0) 05/03/22 05:36 RDW Std Deviation 39.8 fL (36.4-46.3) 05/03/22 05:36 RDW Coeff of Zane 12.1 % (11.5-14.5) 05/03/22 05:36 Plt Count 161 K/uL (130-400) 05/03/22 05:36 MPV 10.0 fL (9.4-12.4) 05/03/22 05:36 Immature Gran % (Auto) 0.2 % 05/03/22 05:36 Neut % (Auto) 64.2 % 05/03/22 05:36 Lymph % (Auto) 23.3 % 05/03/22 05:36 Sullivan % (Auto) 10.1 % 05/03/22 05:36 Eos % (Auto) 1.8 % 05/03/22 05:36 Baso % (Auto) 0.4 % 05/03/22 05:36 Neut # (Auto) 2.86 K/uL (1.4-6.5) 05/03/22 05:36 Lymph # (Auto) 1.04 K/uL (1.2-3.4) L 05/03/22 05:36 Sullivan # (Auto) 0.45 K/uL (0.24-0.82) 05/03/22 05:36 Eos # (Auto) 0.08 K/uL (0-0.50) 05/03/22 05:36 Baso # (Auto) 0.02 K/uL (0-0.2) 05/03/22 05:36 Immature Gran # (Auto) 0.01 K/uL (0.00-0.02) 05/03/22 05:36 PT 10.9 Seconds (9.0-12.0) 05/02/22 15:47 INR 1.0 (0.9-1.1) 05/02/22 15:47 APTT 25.6 Seconds (21.0-31.0) 05/02/22 15:47 PTT Ratio 0.9 05/02/22 15:47 D-Dimer 690 ug/L FEU (0-500) H* 05/02/22 20:18 Sodium 136 mmol/L (136-145) 05/03/22 05:36 Potassium 4.0 mmol/L (3.5-5.1) 05/03/22 05:36 Chloride 100 mmol/L (98-107) 05/03/22 05:36 Carbon Dioxide 28 mmol/L (21-32) 05/03/22 05:36 Anion Gap 8 (3-11) 05/03/22 05:36 BUN 14 mg/dl (6-23) 05/03/22 05:36 Creatinine 0.89 mg/dl (0.6-1.4) 05/03/22 05:36 Est Cr Clr Drug Dosing 95.4 ml/min 05/03/22 05:36 Est GFR ( Amer) 98.3 ml/min 05/03/22 05:36 Est GFR (Non-Af Amer) 84.8 ml/min 05/03/22 05:36 BUN/Creatinine Ratio 15.7 (10-20) 05/03/22 05:36 Glucose 179 mg/dl (70-99(Fasting)) H 05/03/22 05:36 POC Glucose 191 mg/dl (70-99) H 05/03/22 11:13 Calcium 9.4 mg/dl (8.5-10.1) 05/03/22 05:36 Magnesium 1.8 mg/dl (1.7-2.4) 05/02/22 15:47 Total Bilirubin 0.4 mg/dl (0.2-1.0) 05/02/22 15:47 AST 17 U/L (13-39) 05/02/22 15:47 ALT 23 U/L (7-52) 05/02/22 15:47 Alkaline Phosphatase 70 U/L (34-104) 05/02/22 15:47 Troponin I High Sens 19.8 pg/ml (0-20) 05/02/22 15:47 B-Natriuretic Peptide 176 pg/ml (0-100) H 05/02/22 15:47 Total Protein 7.2 gm/dl (6.0-8.3) 05/02/22 15:47 Albumin 4.2 gm/dl (3.4-5.0) 05/02/22 15:47 Globulin 3.0 gm/dl (2.5-4.0) 05/02/22 15:47 Albumin/Globulin Ratio 1.4 (0.9-2) 05/02/22 15:47 TSH 2.306 uIu/ml (0.300-4.500) 05/02/22 15:47 SARS-CoV-2, RNA, NAAT NEGATIVE (NEGATIVE) 05/02/22 20:14 Impressions Chest X-Ray 05/02/22 14:25 TWO VIEW CHEST CLINICAL HISTORY: Dyspnea. FINDINGS: PA and lateral chest radiographs are compared to study dated 07/25/2019 and correlated with chest CT dated 11/09/2017. The patient is status post midline sternotomy. A 2-lead cardiac pacemaker is unchanged in position and partially obscures the left mid chest. The heart is enlarged noting atherosclerotic calcification of the thoracic aorta. The pulmonary vasculature is noncongested. Chronic interstitial thickening is somewhat of previous. The lungs and pleural spaces are clear. There is no pneumothorax. The skeletal structures are osteopenic. The bony thorax appears intact. Bilateral shoulder arthroplasties are in place. Cholecystectomy clips are noted in the right upper quadrant. IMPRESSION: 1. Cardiomegaly and cardiac pacemaker without radiographic evidence of congestive failure. 2. No airspace consolidation or pleural effusion is identified. ACT 112: Negative or not required by law. Electronically signed by: Brendan Foy M.D. 05/02/2022 2:59 PM Chest CTA 05/02/22 21:05 CT angio chest PE protocol CT DOSE: 866.87 mGy.cm HISTORY: 71 years-old Male with sob. Acute shortness of breath TECHNIQUE: Multiple CTA images of the chest were obtained after the intravenous administration of 110 ml Optiray. Coronal and sagittal MIPS were obtained from the axial data set and were submitted for review. All measurements were obta ined according to NASCET criteria. A dose lowering technique was utilized adhering to the principles of ALARA. COMPARISON: Chest CT 10/30/2017 FINDINGS: CTA: Mild cardiomegaly. Left subclavian pacer. Prior median sternotomy with CABG. Extensive [place] coronary artery calcifications. Atherosclerosis of the thoracic aorta without aneurysm. Patency of the imaged great vessels. Unremarkable pul monary artery. No filling defects identified to suggest thromboembolic disease. CT CHEST: Unremarkable thyroid. Subcentimeter borderline enlarged mediastinal lymph nodes measure up to 9 mm which have increased in size from the prior study and are nonspecific. Trace pleural effusions. No pneumothorax, pleural effusion, airspace consolidation or overt pulmonary edema. There are no suspicious pulmonary nodules or masses identified. Mild nonspecific bilateral bronchial wall thickening. No acute process of the imaged upper abdomen. Cholecystectomy. There are a few scattered subcentimeter cysts noted within the right hepatic lobe. Mild colonic fecal retention. Unremarkable soft tissues. Bilateral shoulder arthroplasties. Bones appear grossly intact. Healed chronic left-sided rib fractures. IMPRESSION: 1. No pulmonary emboli identified. 2. Bronchial wall thickening suggestive of bronchitis or reactive airway disease. 3. Trace pleural effusions. 4. No airspace consolidation typical for pneumonia. ACT 112: Negative or not required by law. The above report was generated using voice recognition software. It may contain grammatical, syntax or spelling errors. Electronically signed by: Vitaliy Gaitan M.D. 05/02/2022 10:38 PM Venous Doppler Study 05/02/22 21:05 BILATERAL LOWER EXTREMITY VENOUS DOPPLER HISTORY: Acute pain and swelling of the lower legs leg swelling COMPARISON STUDY: Doppler study 08/13/2017. FINDINGS: There is normal compressibility, flow, and augmentation within the bilateral lower extremity deep venous systems. IMPRESSION: No DVT within the right or left lower extremity. ACT 112: Negative or not required by law. Electronically signed by: Vitaliy Gaitan M.D. 05/03/2022 7:15 AM Hospital Course (1) SOB (shortness of breath): Present on admission with SOB and fatigue CXR showed cardiomegaly and cardiac pacemaker without radiographic evidence of congestive failure. No airspace consolidation or pleural effusion is identified. CTA chest showed no pulmonary emboli identified. Bronchial wall thickening suggestive of bronchitis or reactive airway disease. No airspace consolidation typical for pneumonia Venous doppler showed No DVT within the right or left lower extremity. received IV lasix 20mg on admission Echo reveals mild global left ventricular hypokinesis, ejection fraction of 40%, compared to 55% noted at time of outpatient study in 2020. cardio on board Recommended to start furosemide 20 mg 3 days/week on the days he does not work. Continue carvedilol 25mg BID cardiology will arrange for Outpatient Lexiscan nuclear stress test Ok from cardiology standpoint to discharge home Hx CAD status post CABG/PVD Continue carvedilol, aspirin and statin Stable S/P dual chamber pacemaker implantation Stable DM2 Most recent hba1c 7.3 on 04/14 Will resume PO diabetic medication on discharge DVT prophylaxis. Lovenox subcu Full code Disposition Will discharge home today Total Time Total Time Spent Total Time Spent (In Minutes): 35 minutes Discharge Plan Discharge Items Patient Disposition: Home - Self-Care Reason For Visit: SOB, HX CAD Discharge Diagnosis: Shortness of breath Fatigue Activity: Resume your previous activity Non-emergency contact: Primary Care Provider and [employer] Call non-emergency contact if: you have any medication questions Follow-up/Referrals: Facundo Dean, [Primary Care Provider] - Diet: Carb Consistent or DM2 Addtl Attending Provider Instructions: Follow up with your primary care provider within 1 week ( office will call you for the appointment) Follow up with your cardiology ( Office will call you) Your cardiology will arrange for outpatient Lexiscan nuclear stress test Starting on Lasix 20mg three times a week (take it on the day you do not work) Check BMP in 1 to 2 week to monitor your electrolytes and renal function while on Lasix Fall precaution Seek medical attention if you develop any shortness of breath, chest pain or worsening fatigue Pending Studies at Discharge: No Stand-Alone Forms: My [employer], Work/School Release Medications and DC Order Prescriptions: New furosemide [Lasix] 20 mg tablet 20 mg PO 3XWK Qty: 30 0RF Rx Instructions: Take on non working days Continued carvedilol 25 mg tablet 25 mg PO BID Qty: 60 2RF Rx Instructions: must administer with a meal/food (DME) pen needle, diabetic [Pen Needle] 31 gauge x 3/16" needle See Dose Instructions .ROUTE .MEDSUPPLY Qty: 30 0RF Dose Instruction: As directed Rx Instructions: Use 4 per day (DME) insulin syringe-needle U-100 1 mL 31 gauge x 5/16 syringe See Dose Instructions .ROUTE .MEDSUPPLY Qty: 10 0RF Dose Instruction: As directed Rx Instructions: use 1 BID (DME) lancets [OneTouch UltraSoft Lancets] misc See Dose Instructions .ROUTE .MEDSUPPLY Qty: 50 0RF Dose Instruction: As directed Rx Instructions: use one lancet 1-3 times daily (DME) OneTouch Ultra Blue Test Strip Strip See Dose Instructions .ROUTE .MEDSUPPLY Qty: 200 5RF Dose Instruction: As directed Rx Instructions: As directed test QID bupropion HCl 150 mg tablet extended release 24 hr 150 mg PO QAM Qty: 30 5RF (DME) blood-glucose meter kit See Rx Instructions .ROUTE .MEDSUPPLY Qty: 1 0RF Rx Instructions: test 3 times a day aspirin 81 mg tablet,delayed release (DR/EC) 81 mg PO QAM coenzyme Q10 [CoQ-10] 100 mg Capsule 100 mg PO QAM metformin 500 mg tablet 500 mg PO BID Rx Instructions: TAKE 1 TABLET BY MOUTH TWICE A DAY atorvastatin 20 mg tablet 20 mg PO HS Novolin 70/30 U-100 Insulin 100 unit/mL (70-30) suspension See Rx Instructions .ROUTE .COMPLEX Rx Instructions: sliding scale at bedtime usually takes between 18-25 units insulin aspart U-100 [Novolog Flexpen U-100 Insulin] 100 unit/mL (3 mL) insulin pen See Rx Instructions .ROUTE .COMPLEX Rx Instructions: sliding scale in the morningb albuterol sulfate [Ventolin HFA] 90 mcg/actuation HFA aerosol inhaler 1 - 2 puff INH .EVERY 4-6 HOURS PRN (Reason: shortness of breath or wheezing) Rx Instructions: 1-2 puffs INH by mouth every 4-6 hours PRN; Discharge Orders: Discharge Order (Routine); Ordered 05/03/22 Ordered By: Franklin Huynh/Other Patient Handouts: Heart Failure Flare Up Signs Admission Data Admit Date/Time: 05/02/22 20:21 Attending Provider: Franklin Hayes Admit Provider: Umang Bingham Primary Care Provider: Facundo Dean Other Providers: Umang Bingham ; Jesús Post Other Interventions: Discharge Summary Assessment (RN) Last Done: 05/03/22 15:51
== END 2022-05-03 16:33 | disposition home or self-care (01) ==
LOC: 2S 14:13 → ED 14:13 → 2S 21:42